=== PATIENT | male | born 1940 | race Caucasian/White ===

== ENCOUNTER 2020-03-09 09:27 | Outpatient (CLI) | payer MEDICARE, OTHER, SELFPAY ==
--- NOTE | 2020-03-09 09:45 | XRR_ITS ---
PROCEDURE INFORMATION: Exam: XR Abdomen, 1 View Exam date and time: 03/09/2020 9:47 AM Age: 79 years old Clinical indication: Condition or disease; Kidney or ureter condition; Calculus (stone) in kidney; Prior surgery; Surgery type: Hernia; Additional info: Kidney stone 1 year follow up TECHNIQUE: Imaging protocol: XR of the abdomen. Views: Frontal supine view of the abdomen. 1 View. COMPARISON: No relevant prior studies available. FINDINGS: Gastrointestinal tract: Normal. No bowel dilation. Organs: There is an 8 mm calcific density projecting over the expected location of the left kidney, compatible with a calculus. Bones/joints: There is a minimal lumbar levoscoliosis. XR/XR KUB [id number] IMPRESSION: 8 mm left renal calculus.
== END 2020-03-09 09:28 | disposition home or self-care (01) ==
PROVIDERS: Family Provider Nurse Practitioner Family; PCP Urology; Visit Provider Urology
DX: N20.0 Calculus of kidney (principal)
CPT/HCPCS: 74018; 81001

== ENCOUNTER 2020-08-26 08:07 | Outpatient (CLI) | payer MEDICARE, OTHER, SELFPAY ==
--- NOTE | 2020-08-26 | CT_ITS ---
WS: [id number] CT ABDOMEN CONTRAST TECHNIQUE: Contrast enhanced CT of the abdomen with coronal and sagittal reformatted images. CLINICAL INFORMATION: EPIGASTRIC PAIN COMPARISON: 09 02,019 DLP: 1163.[address] scans at [facility] use at least one of these dose optimization techniques: automat ed exposure control; mA and/or kV adjustment per patient size (includes targeted exams where dose is matched to clinical indication); or iterative reconstruction. FINDINGS: Mild diffuse fatty infiltration of the liver. Cirrhotic contour to the liver. Recommend correlation w ith liver function tests. Gallbladder appears normal. Mild prominence of the common bile duct.. Hazy groundglass infiltrates in the right lower lobe, lingula and left lower lobe. Tiny calcified granulom as in both lower lobes. Normal pancreatic enhancement. A few small calcifications in the pancreatic h ead unchanged. Normal GE junction. Normal spleen. Adrenal glands are normal. Normal renal parenchymal enhancement. N o hydronephrosis. Bilateral renal cortical atrophy. Bilateral renal cysts the largest in the left michael suring 2.1 CM. Nonobstructing left calyceal tip calculus measuring 6.5 mm. No periaortic or retroperi toneal lymphadenopathy. Abdominal aortic calcification. Partially visualized fat-containing umbilical hernia. CT/CT abdomen w con* [id number] IMPRESSION: 1. Diffuse fatty infiltration of the liver with cirrhotic contour.Correlation with liver function tests. 2. Mild prominence of the common bile duct. Gallbladder can be further evaluat ed with ultrasound. 3. No hydronephrosis in either kidney. Mild renal cortical atrophy. 4. Bilateral renal cysts largest in the left measuring 2.1 cm. 5. Normal caliber abdominal aorta. 6. Partially visualized fat-containing umbilical hernia. 7. Slight hazy groundglass infiltrates in the lung bases. Recommend correlatio n for pneumonia.
[2020-08-26] MEDS: iohexol 300 mg/mL 50 mL Btl PO (09:21)
[2020-08-26] MEDS: iohexol 300 mg/mL 100 mL Btl IV (09:29)
== END 2020-08-26 08:08 | disposition home or self-care (01) ==
LOC: RADWPI 08:16
PROVIDERS: PCP Nurse Practitioner Family; Visit Provider Nurse Practitioner Family
DX: R10.13 Epigastric pain (principal); R14.2 Eructation; R11.2 Nausea with vomiting, unspecified; R10.84 Generalized abdominal pain; K76.0 Fatty (change of) liver, not elsewhere classified; N26.1 Atrophy of kidney (terminal); Q61.02 Congenital multiple renal cysts; K42.9 Umbilical hernia without obstruction or gangrene; R91.8 Other nonspecific abnormal finding of lung field
CPT/HCPCS: 74160; Q9967

== ENCOUNTER 2020-10-19 08:19 | Outpatient (CLI) | payer MEDICARE, OTHER, SELFPAY ==
--- NOTE | 2020-10-19 08:00 | US_ITS ---
WS: [id number] RIGHT UPPER QUADRANT ULTRASOUND HISTORY: R10.9 - Unspecified abdominal pain COMPARISON: 08/26/2020 Liver: 15.5 cm in length. Poorly visualized liver due to body habitus and attenuation. Coarse echotex ture with irregular borders and margins. No mass identified. Gallbladder: Normally distended gallbladder with no stones or wall thickening. CBD: 0.3 cm Pancreas: Not visualized. Right kidney: 13.2 cm in length. Normal size and echogenicity. No hydronephrosis or mass. Aorta and IVC: Only a very small portion of the aorta is identified. No ascites. US/US gall bladder [id number] IMPRESSION: 1. Normal gallbladder. 2. No bile duct dilatation. 3. Cirrhotic liver.
== END 2020-10-19 08:20 | disposition home or self-care (01) ==
LOC: RAD 08:27
PROVIDERS: PCP Nurse Practitioner Family; Visit Provider Surgery
DX: K74.60 Unspecified cirrhosis of liver (principal); R10.9 Unspecified abdominal pain
CPT/HCPCS: 76705

== ENCOUNTER 2020-11-08 09:17 | Outpatient (CLI) | payer MEDICARE, OTHER, SELFPAY ==
--- NOTE | 2020-11-08 10:00 | NM_ITS ---
WS: [id number] NUCLEAR MEDICINE HIDA SCAN CLINICAL INFORMATION: R10.13 - Epigastric pain TECHNIQUE: Following intravenous administration of 8.1 mCi of technetium 99m mebrofenin, images of th e abdomen were obtained over the course of 60 minutes. Next, gallbladder ejection fraction was determ ined by obtaining preprandial and one-hour postprandial images of the gallbladder following oral destinee stion of Ensure. COMPARISON: Ultrasound to 10/19/20 FINDINGS: Hepatomegaly. Normal hepatic uptake at 5 minutes. Normal hepatic excretion. Gallbladder is visualized by 10 to 15 minutes. No evidence of acute cholecystitis. Normal common bile duct and small bowel act ivity. No evidence of choledocholithiasis. Gallbladder ejection fraction 63% within normal limits. No evidence of chronic cholecystitis. NM/NM hepatobiliary w phar* [id number] IMPRESSION: 1. No evidence of acute or chronic cholecystitis. 2. Gallbladder ejection fraction 63% within normal limits.
== END 2020-11-08 09:18 | disposition home or self-care (01) ==
PROVIDERS: PCP Nurse Practitioner Family; Visit Provider Surgery
DX: R10.13 Epigastric pain (principal)
CPT/HCPCS: 78227; A9537

== ENCOUNTER → 2021-01-26 10:24 | Outpatient (BNVA) | payer MEDICARE, OTHER, SELFPAY | PROVIDERS: PCP Nurse Practitioner Family; Referring Provider Surgery; Visit Provider Surgery | DX: R10.13 Epigastric pain (principal); Z20.822 Contact with and (suspected) exposure to COVID-19 | CPT/HCPCS: 87635 ==

== ENCOUNTER 2021-01-31 12:18 | Outpatient (CLI) | payer MEDICARE, OTHER, SELFPAY ==
--- NOTE | 2021-01-31 13:03 | PFTS_ITS ---
Date of Study:01/31/21 Date of Dictation: MECHANICS: Forced vital capacity (FVC) is reduced. Forced expiratory volume in one second (FEV1) is reduced. FEV1/FVC is reduced. FLOW VOLUME LOOP: Reduced flow at all lung volumes with scooping. LUNG VOLUMES: Total lung capacity (TLC) is normal. Residual volume (RV) is increased. DIFFUSING CAPACITY FOR CARBON MONOXIDE: Normal. INTERPRETATION: The postbronchodilator spirometry is consistent with moderate obstruction. The patient has a significant postbronchodilator response. Lung volumes are consistent with air trapping. Gas exchange (DLCO) is normal. MTDD
== END 2021-01-31 12:19 | disposition home or self-care (01) ==
LOC: RT 12:19
PROVIDERS: PCP Family Medicine; Visit Provider Internal Medicine Critical Care Medicine
DX: R06.02 Shortness of breath (principal)
CPT/HCPCS: 94060; 94726; 94729; J7611

== ENCOUNTER 2021-02-01 06:53 | Day surgery (SDC) | payer MEDICARE, OTHER, SELFPAY ==
[2021-01-30 13:30] VITALS: BMI 40.1
--- NOTE | 2021-02-01 07:13 | ECG_ITS ---
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 Measurements Intervals [place] Rate: 71 P: 12 MO: 188 QRS: -60 QRSD: 170 T: 30 QT: 422 QTc: 459 Interpretive Statements SINUS RHYTHM WITH OCCASIONAL VENTRICULAR PREMATURE COMPLEXES RIGHT BUNDLE BRANCH BLOCK [120+ ms QRS DURATION, UPRIGHT V1, 40+ ms S IN I/aVL/V4/V5/V6] LEFT ANTERIOR FASCICULAR BLOCK [QRS AXIS <= -45, QR IN I, RS IN II] MODERATE VOLTAGE CRITERIA FOR LVH, CONSIDER NORMAL VARIANT [MEETS CRITERIA IN ONE OF: R(aVL), S(V1), R(V5), R(V5/V6)+S(V1)] POSSIBLE SEPTAL MYOCARDIAL INFARCTION [30 ms Q WAVE IN V1/V2], PROBABLY OLD Compared to ECG 08/22/2018 08:28:50 Ventricular premature complex(es) now present Myocardial infarct finding now present ST (T wave) deviation no longer present Electronically Signed On 02-02-2021 23:59:24 CDT by John Basilio M.D. [id number]
[2021-02-01 07:15] VITALS: BP 167/103; PULSE 74; RESP 18; TEMP 36.1; O2SAT 95
--- NOTE | 2021-02-01 07:34 | ANES.PREANE2 ---
Pre-Anesthetic Assessment Pre-Anesthetic Assessment: Height/Weight: Height 1.78 m Weight 127.006 kg Temp Pulse Resp BP Pulse Ox 97 F L 74 18 167/103 95 02/01/21 07:15 02/01/21 07:15 02/01/21 07:15 02/01/21 07:15 02/01/21 07:15 Preop Diagnosis: Epigastric pain Proposed Procedure: Operation Date: 02/01/21 08:00 Proposed Procedures p EGD 88459 R10.3(Not Applicable) - Mark Schwartz MD Was Beta Vasu taken within 24 hours: N/A Was Clonidine taken within 24 hours: N/A Last intake: Intake Last Liquid Date 01/31/21 Last Liquid Time 20:00 Last Solid Date 01/31/21 Last Solid Time 20:00 Social: Social History: Tobacco (30 yrs quit) and No alcohol Exam: Pre-Anes Outpt Exam: alert, oriented x 3, clear to auscultation bilaterally and regular rate & rhythm Airway: Submandibular: WNL Cervical ROM: Other (limited ROM) MP: 3 (full perez) Dentition: False History/ROS: No significant history except as noted Pulmonary: Pulmonary: Asthma, COPD, LOWRY, Sleep apnea and SOB Comments: nebulizer treatment preop alb/ipr/ history of histoplasmosis, O2 at night 2L CV/HEM: CV/HEM: HTN : : Chronic renal Insufficiency Comments: PSA, history kidney stones Hepatic: Comments: fatty liver GI: GI: GERD and Hiatus hernia Metabolic: Metabolic: Morbid obesity Musc/skel: Musc/skel: OA/DJD and Weakness Comments: cane assisted Anesthetic Plan: ASA status: 3 Anesthesia: Anesthesia Evaluation and MAC Risk of > 500 ml blood loss (7ml/kg in children): No PFSH Anesthesia PFSH: Medical History (Updated 01/24/21 @ 19:00 by Leidy Gallardo MD) Abnormal PSA Anxiety Histoplasmosis History of tobacco use HTN (hypertension) Hydronephrosis, left Hyperlipidemia Hypokalemia Left renal stone Macular degeneration Osteoarthritis Urinary frequency Surgical History Hx of cataract removal with insertion of prosthetic lens Hx of inguinal hernia repair Hx of right knee surgery Hx of umbilical hernia repair Family History Father CAD (coronary artery disease) Mother Lung disease Social History Smoking and tobacco status: former smoker Quit status (tobacco): has quit using tobacco Year quit tobacco: 1990 Former quit date comment: Hx of 1.5 PPD x 40 Years Smoking risk assessment/counseling performed?: No Alcohol intake: former Year of sobriety/quit date alcohol: 1960 Counseling given: No Counseling given: No Adopted: No Caregiver/support person: No Lives independently: Yes Household members: none Marital status: / Current occupational status: retired and disabled 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 Pets and animals: Yes Pets & animals: cat(s) History of recent travel: No Current gender identity: Male Data Anesthesia Cardiac Studies: No Data to Display
[2021-02-01] MEDS: sodium chloride 0.9% 1,000 ML 30 ML IV (07:38)
--- NOTE | 2021-02-01 08:12 | W.PM.OPSFHP ---
Same Day Surgery H&P Indication for Procedure/HPI DATE OF PROCEDURE: February 01, 2021 CHIEF COMPLAINT/INDICATIONFOR SURGICAL PROCEDURE: Epigastric pain PREOP DIAGNOSIS: Epigastric pain PLANNED PROCEDRUE: Operation Date: 02/01/21 08:00 Proposed Procedures p EGD 06426 R10.3(Not Applicable) - Mark Schwartz MD Mr. Flynn comes today for follow-up status post HIDA scan that I requested that showed: FINDINGS: Hepatomegaly. Normal hepatic uptake at 5 minutes. Normal hepatic excretion. Gallbladder is visualized by 10 to 15 minutes. No evidence of acute cholecystitis. Normal common bile duct and small bowel activity. No evidence of choledocholithiasis. Gallbladder ejection fraction 63% within normal limits. No evidence of chronic cholecystitis. NM/NM hepatobiliary w phar* [id number] IMPRESSION: 1. No evidence of acute or chronic cholecystitis. 2. Gallbladder ejection fraction 63% within normal limits. After further analyzing the HIDA scan patient reports no discomfort or nausea or vomiting associated with the study. Patient continues to feel bloated denies any nausea or vomiting. Further history reveals that the patient is a mouth breather and likely he does swallow a lot of air that makes him feel bloated. Interim history 02/01/2021 Patient comes today for diagnostic EGD ROS All systems have been reviewed negative except as per the above or per problem list. Medications/Allergies* Home Medications Medication Instructions Recorded Confirmed Type cholecalciferol (vitamin D3) 50 50 mcg PO DAILY tab 02/19/20 02/01/21 History mcg (2,000 unit) tablet vit C 250 mg-vit E 90 mg-zinc 40 1 tab PO BID 02/19/20 01/30/21 History mg-copper 1 yx-cfychh-fococw capsule ipratropium-albuterol 3 ml INHALATION TID PRN 01/30/21 02/01/21 History Allergies/Adverse Reactions Allergy/AdvReac Type Severity Reaction Status Date / Time No Known Allergies Allergy Verified 02/01/21 08:14 Current Medications: Generic Name Dose Route Start Last Admin Trade Name Freq PRN Reason Stop Dose Admin Sodium Chloride 1,000 mls @ 30 mls/hr 02/01/21 07:15 02/01/21 07:38 Sodium Chloride 0.9% IV 30 mls/hr .Q24H SONG Administration Pertinent History/Comorbid Conditions* Medical History (Updated 01/24/21 @ 19:00 by Leidy Gallardo MD) Abnormal PSA Anxiety Histoplasmosis History of tobacco use HTN (hypertension) Hydronephrosis, left Hyperlipidemia Hypokalemia Left renal stone Macular degeneration Osteoarthritis Urinary frequency Surgical History (Updated 01/11/21 @ 10:49 by Jack Slater MD) Hx of cataract removal with insertion of prosthetic lens Hx of inguinal hernia repair Hx of right knee surgery Hx of umbilical hernia repair Family History (Updated 02/19/20 @ 14:04 by VINCE Cabrera) CAD (coronary artery disease) Father Lung disease Mother Social History Smoking and tobacco status: former smoker Quit status (tobacco): has quit using tobacco Year quit tobacco: 1990 Former quit date comment: Hx of 1.5 PPD x 40 Years Smoking risk assessment/counseling performed?: No Alcohol intake: former Year of sobriety/quit date alcohol: 1960 Counseling given: No Counseling given: No Adopted: No Caregiver/support person: No Lives independently: Yes Household members: none Marital status: / Current occupational status: retired and disabled 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 I discussed with the patient in detail the risk,benefits,alternatives and indications.The risk of aspiration, bleeding, soft tissue injury, perforation of the stomach/esophagus and other potential concomitant complications were explained to the patient in details,aslo the potential need for Thoracic and or Abdominal surgery to repair any complications.The patient understood this well and did agree to proceed. Rationale was carefully and clearly discussed with the patient.Appropriate informed consent have been reviewed and signed All questions have been answered and all concerns have been addressed to patient's satisfaction. Coding Level of Care Code Acute Bulb Inspector for Callie Meyers
[2021-02-01 08:23] VITALS: BP 132/77; PULSE 70; RESP 18; TEMP 36.6; O2SAT 93
--- NOTE | 2021-02-01 08:28 | SUR.PHASEII ---
0864 PATIENT TO ROOM AT THIS TIME. RR EVEN AND UNLABORED. BITE BLOCK IN PLACE. SPO2 93%
[2021-02-01 08:42] VITALS: BP 127/77; PULSE 68; RESP 16; TEMP 36.6; O2SAT 93
--- NOTE | 2021-02-01 13:29 | ANE.PACU2 ---
Inpatient post-anesthesia follow up: Airway intact: Yes Vital signs: Temperature 97.8 F Pulse Rate 68 Respiratory Rate 16 Blood Pressure 127/77 Pulse Oximetry 93 Oxygen Delivery Me thod Room Air Oxygen Flow Rate 5 Fraction of Inspir ed Oxygen Hydration adequate: Yes Nausea and vomiting: No Pain level: 1 Mental status: Baseline
[2021-02-02 06:16] LABS: H. Pylori / CLO Test Negative
== END 2021-02-01 08:50 | disposition home or self-care (01) ==
PROVIDERS: PCP Family Medicine; Visit Provider Surgery
PROC: 0DJ08ZZ Inspection of Upper Intestinal Tract, Via Natural or Artificial Opening Endoscopic (ICD-10-PCS; CPT 43235; principal; 2021-02-01 08:00)
DX: R10.13 Epigastric pain (principal); K29.70 Gastritis, unspecified, without bleeding; K29.80 Duodenitis without bleeding; F41.9 Anxiety disorder, unspecified; F17.210 Nicotine dependence, cigarettes, uncomplicated; I10 Essential (primary) hypertension; E78.5 Hyperlipidemia, unspecified; M19.90 Unspecified osteoarthritis, unspecified site; J44.9 Chronic obstructive pulmonary disease, unspecified; G47.30 Sleep apnea, unspecified; Z99.81 Dependence on supplemental oxygen; K21.00 Gastro-esophageal reflux disease with esophagitis, without bleeding
CPT/HCPCS: 43239; 87077; 93005; J2704; J7030

== ENCOUNTER → 2021-02-08 10:44 | Outpatient (BNVA) | payer MEDICARE, OTHER, SELFPAY | PROVIDERS: PCP Family Medicine; Visit Provider Internal Medicine Critical Care Medicine | DX: R06.02 Shortness of breath (principal); J45.909 Unspecified asthma, uncomplicated | CPT/HCPCS: 82785; 86003 ==

== ENCOUNTER 2021-02-10 06:55 | Outpatient (CLI) | payer MEDICARE, OTHER, SELFPAY ==
[2021-02-10 07:06] VITALS: BMI 40.8
--- NOTE | 2021-02-10 07:18 | ECG_ITS ---
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 Interpretive Statements NAME OF STUDY: LEXISCAN SESTAMIBI STRESS TEST INDICATION: [Shortness of Breath, ] Procedure: At the baseline, the blood pressure was 144/76 mmHg with a heart rate of 66 bpm. The electrocardiogram showed normal sinus rhythm, left axis deviation, interventricular conduction delay with normal ST and T's. The Lexiscan was infused over a period of 20 seconds. A total of 0.4 mg of Lexiscan was infused. The stress phase was continued for a total of 5 minutes. Heart rate was at the end of stress phase was 73 bpm and a blood pressure of 163/61 mmHg. The EKG at the peak infusion revealed since normal sinus rhythm with no significant ST-T wave changes. Sestamibi was injected 20 seconds after the Lexiscan infusion. Blood pressure at the end of recovery phase was 167/84 mmHg with a heart rate of 72 bpm. Conclusion: 1. Normal EKG response to Lexiscan infusion 2. No Lexiscan induced chest pain or cardiac arrhythmia. 3. Normal blood pressure and heart rate response. 4. Sestamibi/sestamibi perfusion scan pending; see separate report. Electronically Signed On 02-22-2021 17:09:56 CDT by Michael Ng M.D. [id number]
--- NOTE | 2021-02-10 07:19 | NMCV_ITS ---
NM sukhdev perf SPECT r/s* [id number] Fercho Flynn Age: 80 Gender: M : 1940 Exam Date: 02/10/2021 08:26 Ordering Phys: Jack Slater MD Technologist: ABRAHAM Blanco Exam Location: [facility] Indications: SHORTNESS OF BREATH STRESS TEST Please see separate stress test report in [facility] for full findings IMAGE PROTOCOL Rest/Stress 1 Lexiscan Day Radiopharmaceutical Dose (mCi) Administration Site Administered by Rest: Tc-99m 10.9 IV ABRAHAM Valdes Sestamibi Stress:Tc-99m 33.0 IV ABRAHAM Valdes Sestamibi Rest: 10-Feb-2021 60 Discovery 630 Stress: 10-Feb-2021 30 Discovery 630 0.4mg Lexiscan. Supine position only as patient was unable to lay prone. SPECT RESULTS Technical Quality: Good Raw Data Analysis: Normal Image Corrections: No attenuation or motion correction applied Summed Stress Score: 8 Summed Rest Score: 7 Summed Difference Score: 2 PERFUSION FINDINGS There is a moderate sized partially reversible perfusion defect in the apical lateral, apical inferior and mid inferior nicholas. 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 IMPRESSIONS 1. Abnormal myocardial perfusion imaging with moderate sized, partially reversible perfusion defect noted in apical lateral, apical inferior and mid inferior nicholas. This likely represents prior infarct with small area of donya- infarct ischemia 2. LV systolic function is normal Michael Ng MD (Electronically Signed) Final Date: 10 Feb 2021 10:44 S
--- NOTE | 2021-02-10 08:00 | USCV_ITS ---
Fercho Flynn Age: 80 Gender: M : 1940 Exam Date: 02/10/2021 07:20 Ordering Phys: Jack Slater MD Technologist: Karen Xavier Exam Location: [facility] [place] Indication: SOB BP: / HR: 65 Rhythm: Sinus Technical Quality: Adequate MEASUREMENTS (Male / Female) Normal Values 2D ECHO LV Diastolic Diameter PLAX 4.3 cm 4.2 - 5.9 / 3.9 - 5.3 cm LV Systolic Diameter PLAX 3.6 cm LV Chamber Size 2.9 cm IVS Diastolic Thickness 1.5 cm 0.6 - 1.0 / 0.6 - 0.9 cm IVS Systolic Thickness 2.1 cm LVPW Diastolic Thickness 1.3 cm 0.6 - 1.0 / 0.6 - 0.9 cm LVPW Systolic Thickness 1.7 cm RV Chamber Size 4.2 cm LVOT Diameter 2.1 cm LV Ejection Fraction 2D Teich 37.2 % LV Ejection Fraction MOD 2C 39.8 % LV Ejection Fraction 2C AL 42.8 % LA Diameter 4.4 cm LA Width 2.6 cm LA Height 4.7 cm RA Width 4.2 cm RA Height 3.2 cm Aorta at Sinotubular Diameter 3.4 cm M-MODE LV Diastolic Diameter MM 4.3 cm 4.2 - 5.9 / 3.9 - 5.3 cm LV Systolic Diameter MM 3.1 cm LV Ejection Fraction MM Teich 56.5 % IVS Diastolic Thickness MM 1.3 cm 0.6 - 1.0 / 0.6 - 0.9 cm IVS Systolic Thickness MM 1.4 cm LVPW Diastolic Thickness MM 1.3 cm 0.6 - 1.0 / 0.6 - 0.9 cm LVPW Systolic Thickness MM 1.4 cm Aortic Annulus Diameter 3.7 cm LA Ao Ratio MM 1.5 MV E Point Septal Separation 0.8 cm DOPPLER AV Peak Velocity 175.0 cm/s LVOT Peak Velocity 117.0 cm/s AV Area Cont Eq vti 2.4 cm squared AV Area Cont Eq pk 2.2 cm squared MV Area PHT 2.8 cm squared Mitral E to A Ratio 1.3 MV E' Velocity 41.5 cm/s Mitral E to MV E' Ratio 12.4 Mitral E to LV E' Lateral Ratio 11.9 Mitral E to LV E' Septal Ratio 13.3 TR Peak Velocity 148.5 cm/s TR Peak Gradient 8.8 mmHg TR Mean Velocity 122.9 cm/s TR Mean Gradient 6.2 mmHg TR Velocity Time Integral 35.8 cm TV Peak E Velocity 59.0 cm/s PV Peak Velocity 37.0 cm/s RV Acceleration Time 0.1 s RV Ejection Time 0.4 s RV AcT/ET 0.3 FINDINGS Left Ventricle Normal left ventricular size. LV systolic function is borderline low with EF of 45-50%. Mild global hypokinesis. Grade II/IV diastolic dysfunction Right Ventricle The right ventricle is normal in size and function. Right Atrium The right atrium is normal in size. Left Atrium The left atrium is normal in size. Mitral Valve Structurally normal mitral valve without significant stenosis or prolapse. There is no mitral regurgitation. Aortic Valve Grossly normal without significant sclerosis or stenosis. There is no aortic regurgitation. Tricuspid Valve Structurally normal tricuspid valve without significant stenosis or regurgitation. Insufficient TR jet to calculate RVSP Pulmonic Valve Not well visualized Pericardium Normal pericardium without effusion. Aorta Normal ascending aorta dimension. CONCLUSIONS LV systolic function is borderline reduced with EF of 45-50% Grade 2 diastolic dysfunction Limited visualization of valvular structures, but no significant abnormalities are noted No comparison studies are available Michael Ng MD (Electronically Signed) Final Date: 12 Feb 2021 17:01 S
[2021-02-10 09:12] VITALS: BP 167/84; PULSE 70
[2021-02-10] MEDS: regadenoson 0.4 Mg/5 ml Syringe IVP (09:12)
--- NOTE | 2021-02-10 10:00 | CT_ITS ---
WS: [id number] CT CHEST WITHOUT INTRAVENOUS CONTRAST HISTORY: R06.02 - Shortness of breath TECHNIQUE: Contiguous 5 mm axial imaging performed on the thorax. Coronal and sagittal reformats are submitted. All CT scans at [facility] use at least one of these dose optimization techniq ues: automated exposure control; mA and/or kV adjustment per patient size (includes targeted exams wh ere dose is matched to clinical indication); or iterative reconstruction. CONTRAST: None DLP: 968.78 mGy.cm COMPARISON: None available. Lungs and central airway: Mild pulmonary hyperexpansion. There are numerous 2 to 3 mm calcified nodul es throughout both lungs. No mass or pulmonary nodule. No pneumonia. Pleura: Normal. No pleural effusion. Heart and pericardium: Normal size heart with no pericardial effusion. Mediastinum and karin: A few benign calcified lymph nodes. No adenopathy. Vessels: Mild atherosclerosis with no aneurysm. Normal size pulmonary artery. Chest wall and lower neck: Atrophied or partially absent LEFT pectoralis muscle. Upper abdomen: Surface of the liver is irregular suggesting cirrhosis. No lesions identified on this unenhanced study. Bladder is negative. Mild nodularity of each adrenal gland but LEFT greater than RI GHT. Similar to the prior study of 08/26/2020. Osseous structures: Focal RIGHT curvature mid thoracic spine with advanced degenerative changes at th e disc. No bone destruction. CT/CT chest wo con [id number] IMPRESSION: 1. Prior granulomatous disease. 2. No pneumonia or pulmonary mass. 3. Mild emphysema. 4. Cirrhotic liver.
== END 2021-02-10 06:56 | disposition home or self-care (01) ==
PROVIDERS: PCP Family Medicine; Visit Provider Internal Medicine Critical Care Medicine
DX: R06.02 Shortness of breath (principal); R94.39 Abnormal result of other cardiovascular function study; I51.9 Heart disease, unspecified; J43.9 Emphysema, unspecified; K74.60 Unspecified cirrhosis of liver
CPT/HCPCS: 71250; 78452; 93017; 93306; A9500; J2785

== ENCOUNTER 2021-03-09 09:27 | Outpatient (CLI) | payer MEDICARE, OTHER, SELFPAY ==
--- NOTE | 2021-03-09 09:44 | XR_ITS ---
WS: [id number] KUB, AP view, 03/09/2021 Clinical Data: RENAL STONE Comparison: KUB, 03/09/2020. Findings: No abnormal intraabdominal masses are seen. There is no dilatated small bowel or evidence of obstruct ion. There is a 1.1 cm calcification overlying the left kidney. There are multiple calcifications probably in the lung bases. There are probable calcifications overlying the right kidney located lateral to t he L2 vertebral body. There are phleboliths in the true pelvis. XR/XR KUB [id number] Impression: 1. Probable left renal calculus. 2. Possible right renal calculi.
== END 2021-03-09 09:28 | disposition home or self-care (01) ==
LOC: RAD 09:31
PROVIDERS: PCP Family Medicine; Visit Provider Urology
DX: N20.0 Calculus of kidney (principal)
CPT/HCPCS: 74018; 81003

== ENCOUNTER → 2021-03-22 14:33 | Outpatient (BNVA) | payer MEDICARE, OTHER, SELFPAY | PROVIDERS: PCP Family Medicine; Visit Provider Internal Medicine Cardiovascular Disease | DX: I25.10 Atherosclerotic heart disease of native coronary artery without angina pectoris (principal); I50.42 Chronic combined systolic (congestive) and diastolic (congestive) heart failure; R06.02 Shortness of breath; I10 Essential (primary) hypertension | CPT/HCPCS: 80053; 80061; 83721; 83735; 83880; 85025 ==

== ENCOUNTER → 2021-04-05 11:35 | Outpatient (BNVA) | payer MEDICARE, OTHER, SELFPAY | PROVIDERS: PCP Family Medicine; Visit Provider Emergency Medicine | DX: R06.02 Shortness of breath (principal); R07.9 Chest pain, unspecified; R00.2 Palpitations | CPT/HCPCS: 71046 ==

== ENCOUNTER 2021-04-05 13:00 | Emergency (ER) | payer MEDICARE, OTHER, SELFPAY ==
[2021-04-05 13:13] VITALS: BP 124/71; PULSE 80; RESP 22; TEMP 37.1; O2SAT 93; BMI 38.7
--- NOTE | 2021-04-05 13:52 | ECG_ITS ---
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 Measurements Intervals [place] Rate: 75 P: 35 MO: 201 QRS: -67 QRSD: 162 T: 53 QT: 430 QTc: 480 Interpretive Statements SINUS RHYTHM RIGHT BUNDLE BRANCH BLOCK [120+ ms QRS DURATION, UPRIGHT V1, 40+ ms S IN I/aVL/V4/V5/V6] LEFT ANTERIOR FASCICULAR BLOCK [QRS AXIS <= -45, QR IN I, RS IN II] POSSIBLE SEPTAL MYOCARDIAL INFARCTION [30 ms Q WAVE IN V1/V2], PROBABLY OLD Compared to ECG 02/01/2021 07:51:25 Ventricular premature complex(es) no longer present Myocardial infarct finding still present Electronically Signed On 04-05-2021 17:34:16 CDT by Michael Ng M.D. [id number]
--- NOTE | 2021-04-05 14:47 | W.ED.GENADLT ---
HPI - General Adult General: Chief complaint: General Medical Stated complaint: SOB, Chest Pain Time Seen by Provider: 04/05/21 14:44 History of Present Illness: HPI narrative: 80-year-old male presents emergency room complaining of palpitations and burping. He is having irregular heartbeats and skipping beats for the last day. He is very concerned about this. Has not really had any chest pain. He has been more short of breath. He has noticed his blood pressures been elevated as well. No recent medication changes. Denies fever sweats or chills. These episodes are self-limited at times old male have just a few. While I was standing at the bedside patient experienced several there were noted to be PVCs with compensatory pauses on his bedside monitor. Onset (ago): hour(s) Radiation: non-radiation Relieving factors: none Exacerbating factors: none Associated symptoms: Reports confusion, dyspnea and short of breath; Deny chest pain, cough, diaphoresis, decreased appetite, fevers/chills, headache(s), malaise, nausea, rash, palpitations, seizures, syncope, vomiting or weakness Review of Systems Const: Denies: malaise or diaphoresis ENMT: Denies: throat pain, ear or mastoid pain, nasal discharge or nasal congestion Card: Denies: chest pain, palpitations or syncope Resp: Reports: dyspnea GI: Denies: nausea or vomiting : Denies: flank pain, dysuria, urinary frequency or urinary urgency Skin/Breast: Denies: rash Neuro: Reports: confusion; Denies: headache(s) [facility] ED PFSH: Medical History Abnormal nuclear stress test Abnormal PSA Anxiety CAD (coronary artery disease) Gastritis and duodenitis Histoplasmosis History of tobacco use HTN (hypertension) Hydronephrosis, left Hyperlipidemia Hypokalemia Left renal stone Macular degeneration Osteoarthritis Urinary frequency Surgical History History of esophagogastroduodenoscopy (EGD) 2020 Hx of cataract removal with insertion of prosthetic lens Hx of inguinal hernia repair Hx of right knee surgery Hx of umbilical hernia repair Family History Father , in his 80's CAD (coronary artery disease) Mother , at age 78 Lung disease Social History Smoking and tobacco status: former smoker Quit status (tobacco): has quit using tobacco Year quit tobacco: 1990 Former quit date comment: Hx of 1.5 PPD x 40 Years Smoking risk assessment/counseling performed?: No Alcohol intake: former Year of sobriety/quit date alcohol: 1960 Counseling given: No Counseling given: No Adopted: No Caregiver/support person: No Lives independently: Yes Household members: none Marital status: / Current occupational status: retired and disabled 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 Pets and animals: Yes Pets & animals: cat(s) History of recent travel: No Current gender identity: Male Physical Exam Const: COMMON NORMALS: no acute distress GENERAL APPEARANCE: cooperative and comfortable ORIENTATION/CONSCIOUSNESS: Yes awake, Yes oriented to person, Yes oriented to place and Yes oriented to time HENMT: COMMON NORMALS: normocephalic, atraumatic and hearing grossly normal bilaterally HEAD & SCALP: normocephalic and atraumatic Neck/C-Spine: COMMON NORMALS: no JVD Resp: COMMON NORMALS: normal respiratory effort, No retractions, No use of accessory muscles and clear to auscultation bilaterally AUSCULTATION: clear to auscultation bilaterally Cardio: COMMON NORMALS: no JVD, regular rate, regular rhythm and No murmurs present (Cardio) RATE: regular rate RHYTHM: regular rhythm GI: COMMON NORMALS: Soft to palpation and No hepatosplenomegaly present AUSCULTATION: Yes normoactive bowel sounds PALPATION: Yes Soft to palpation, No Tenderness to palpation present (GI), No Guarding due to palpation present (GI) and Yes No hepatosplenomegaly present Extremity: COMMON NORMALS: normal to inspection, capillary refill normal, no clubbing, cyanosis or edema, no calf tenderness and no pedal edema Neuro: SENSORIUM/ORIENTATION: Yes oriented to person, Yes oriented to place and Yes oriented to time Skin: COMMON NORMALS: no rashes or lesions noted GENERAL SKIN EXAM: no rashes or lesions noted Course Vital Signs: Vital signs: Vital Signs Temperature 98.7 F 04/05/21 13:13 Pulse Rate 73 04/05/21 19:06 Respiratory Rate 21 H 04/05/21 19:06 Blood Pressure 142/74 04/05/21 19:06 Pulse Oximetry 91 04/05/21 19:06 MDM - General Adult MDM Narrative: Medical decision making narrative: Patient had multiple episodes of PVCs while he was here summer which he was aware of others not. His sats did run a bit on the low side. Is frequently down around 90 to 91% a few times even below 90. Chest x-ray is unremarkable patient is on chronic O2 but only wears it at night recommend to him that he can continue to wear it but wear it 24/7 for now on. Continue his other medications reassurance given in regards to the PVCs have him follow-up with his doctor sometime within the next week he needs to be reevaluated on his oxygen. Suspect he will needed 24/7 on activities. Lab Data: Labs: Lab Results 04/05/21 04/05/21 04/05/21 Range/Units 15:05 15:05 15:05 WBC 7.1 (4.0-10.0) 10^3/ uL RBC 5.09 (4.1-5.3) 10^6/u L Hgb 15.5 (11.7-16.6) g/dL Hct 48.2 (42.0-52.0) % MCV 94.7 H (80-94) fL MCH 30.5 (28.0-34.0) pg MCHC 32.2 (30.0-36.0) g/dL RDW 13.2 (12.1-15.1) % Plt Count 216 (130-400) 10^3/c mm MPV 10.8 H (7.4-10.4) fL Neut % (Auto) 66.7 % Lymph % (Auto) 19.5 % [place] % (Auto) 9.2 % Eos % (Auto) 3.3 % Baso % (Auto) 1.0 % Neut # (Auto) 4.71 (1.8-7.7) 10^3/u L Lymph # (Auto) 1.4 (0.8-4.8) 10^3/u L [place] # (Auto) 0.7 (0.2-0.9) 10^3/u L Eos # (Auto) 0.2 (0.0-0.8) 10^3/u L Baso # (Auto) 0.1 (0.0-0.1) 10^3/u L Nucleated RBC % (a uto) 0 % Nucleated RBCs # 0.0 /100WBC Sodium 139 (136-145) mmol/L Potassium 4.6 (3.5-5.1) mmol/L Chloride 105 (98-107) mmol/L Carbon Dioxide 24 (22-29) mmol/L Anion Gap 14.6 (5-19) BUN 18 (8-23) mg/dL Creatinine 1.1 (0.7-1.2) mg/dL GFR Calculation Not Reportable Glucose 98 (65-115) mg/dL Calculated Osmolal ity 290 (285-295) mOsm/k g Calcium 9.1 (8.5-10.5) mg/dL Total Bilirubin 0.6 (0.15-1.2) mg/dL AST 43 H (0-40) U/L ALT 41 (0-41) U/L Alkaline Phosphata se 66 (40-130) IU/L Troponin T Baselin e 27 H (0-15) ng/L Troponin T 120 Min [place] (0-15) ng/L Delta Troponin T (0-10) ABS# Total Protein 6.3 L (6.6-8.7) g/dL Albumin 4.4 (3.5-5.2) g/dL Globulin 1.9 (1.3-4.6) g/dL TSH 1.03 (0.27-4.20) uIU/ mL 04/05/21 Range/Units 17:26 WBC (4.0-10.0) 10^3/ uL RBC (4.1-5.3) 10^6/u L Hgb (11.7-16.6) g/dL Hct (42.0-52.0) % MCV (80-94) fL MCH (28.0-34.0) pg MCHC (30.0-36.0) g/dL RDW (12.1-15.1) % Plt Count (130-400) 10^3/c mm MPV (7.4-10.4) fL Neut % (Auto) % Lymph % (Auto) % [place] % (Auto) % Eos % (Auto) % Baso % (Auto) % Neut # (Auto) (1.8-7.7) 10^3/u L Lymph # (Auto) (0.8-4.8) 10^3/u L [place] # (Auto) (0.2-0.9) 10^3/u L Eos # (Auto) (0.0-0.8) 10^3/u L Baso # (Auto) (0.0-0.1) 10^3/u L Nucleated RBC % (a uto) % Nucleated RBCs # /100WBC Sodium (136-145) mmol/L Potassium (3.5-5.1) mmol/L Chloride (98-107) mmol/L Carbon Dioxide (22-29) mmol/L Anion Gap (5-19) BUN (8-23) mg/dL Creatinine (0.7-1.2) mg/dL GFR Calculation Glucose (65-115) mg/dL Calculated Osmolal ity (285-295) mOsm/k g Calcium (8.5-10.5) mg/dL Total Bilirubin (0.15-1.2) mg/dL AST (0-40) U/L ALT (0-41) U/L Alkaline Phosphata se (40-130) IU/L Troponin T Baselin e (0-15) ng/L Troponin T 120 Min [place] 22.10 H (0-15) ng/L Delta Troponin T -4.90 L (0-10) ABS# Total Protein (6.6-8.7) g/dL Albumin (3.5-5.2) g/dL Globulin (1.3-4.6) g/dL TSH (0.27-4.20) uIU/ mL Discharge Plan Discharge Patient Disposition: Home Clinical Impression: Symptomatic PVCs Condition: Stable Prescriptions: No Action fluticasone propion-salmeterol [Advair Diskus] 250-50 mcg/dose blister with device 1 inh inhalation BID Qty: 60 RF: 3 bupropion HCl [Wellbutrin SR] 100 mg tablet sustained-release 12 hr 100 mg PO QAM 30 Days Qty: 30 RF: 0 PreserVision AREDS-2 805-665-67-1 wa-rtlx-ur-mg capsule 1 tab PO BID RF: 0 cholecalciferol (vitamin D3) 125 mcg (5,000 unit) capsule 125 mcg PO QAM RF: 0 One-A-Day Men's 50 Plus 400-20-370 mcg tablet 1 tab PO QAM RF: 0 ipratropium-albuterol 0.5 mg-3 mg(2.5 mg base)/3 mL solution for nebulization 3 ml inhalation QID RF: 0 potassium chloride 10 mEq capsule, extended release 10 meq PO QAM RF: 0 atorvastatin 10 mg tablet 10 mg PO BEDTIME RF: 0 meloxicam 15 mg tablet 15 mg PO QAM RF: 0 lisinopril 20 mg tablet 20 mg PO QAM RF: 0 Adult Aspirin Regimen 81 mg tablet,delayed release (DR/EC) 81 mg PO BEDTIME RF: 0 furosemide 20 mg tablet 20 mg PO QAM RF: 0 miscellaneous medical supply Kit See Rx Instructions .ROUTE .COMPLEX RF: 0 Discharge Orders: Discharge ED (Routine); Ordered 04/05/21 Ordered By: Matthew Ortiz Referrals: Leidy Gallardo MD [Primary Care Provider] - Discharge Diet: Usual diet Discharge Activity: Increase activity as tolerated Patient Instructions: Opioid Safety Activity Restrictions/Additional Instructions: Case management will call to set up a 48-hour Holter monitor continue all your previous medications with no changes. 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
[2021-04-05 14:53] VITALS: O2SAT 94
--- NOTE | 2021-04-05 14:56 | PC.NURSE ---
pt very anxious about IV placement and requested explanation of need for IV from nurse. nurse explained to pt the possibility of needing to give medications through intravenous route for his c/o chest pain and shortness of breath. pt verbalized understanding and agreed to have IV line placed.
[2021-04-05 15:05] VITALS: BP 137/104; PULSE 74; RESP 18; O2SAT 94
--- NOTE | 2021-04-05 15:15 | XR_ITS ---
WS: [id number] Portable AP upright chest, 04/05/2021, 1545 hours Clinical Data: dyspnea/cough Comparison: PA and lateral chest, 04/05/2021, 1158 hours Findings: No nodules, masses or effusions are seen. The heart is normal. The pulmonary vascularity is not increased. No pneumonia or pneumothorax is seen. There are small granulomas seen throughout the lungs. The aortic arch and descending aorta show mild calcification and tortuosity. There are monitor leads on the chest wall. XR/XR chest 1V portable [id number] Impression: Atherosclerosis and old granulomatous disease.
[2021-04-05 15:19] LABS: Basophils # 0.1 10^3/uL (0.0-0.1); Eosinophils # 0.2 10^3/uL (0.0-0.8); Eosinophils % 3.3 %; Hematocrit 48.2 % (42.0-52.0); Hemoglobin 15.5 g/dL (11.7-16.6); Lymphocytes # 1.4 10^3/uL (0.8-4.8); Lymphocytes % 19.5 %; Mean Corpuscular HGB Conc 32.2 g/dL (30.0-36.0); Mean Corpuscular Hemoglobin 30.5 pg (28.0-34.0); Mean Corpuscular Volume 94.7 fL (80-94); Mean Platelet Volume 10.8 fL (7.4-10.4); Monocytes # 0.7 10^3/uL (0.2-0.9); Monocytes % 9.2 %; Neutrophils # 4.71 10^3/uL (1.8-7.7); Neutrophils % 66.7 %; Nucleated Red Blood Cells % 0 %; Platelet Count 216 10^3/cmm (130-400); Red Blood Count 5.09 10^6/uL (4.1-5.3); Red Cell Distribution Width 13.2 % (12.1-15.1); White Blood Count 7.1 10^3/uL (4.0-10.0)
[2021-04-05 15:35] VITALS: BP 130/84; PULSE 75; RESP 19; O2SAT 92
[2021-04-05 16:07] LABS: Alanine Aminotransferase 41 U/L (0-41); Albumin Level 4.4 g/dL (3.5-5.2); Alkaline Phosphatase 66 IU/L (40-130); Anion Gap 14.6 (5-19); Aspartate Amino Transferase 43 U/L (0-40); Blood Urea Nitrogen 18 mg/dL (8-23); Calcium 9.1 mg/dL (8.5-10.5); Carbon Dioxide 24 mmol/L (22-29); Chloride 105 mmol/L (98-107); Globulin 1.9 g/dL (1.3-4.6); Glucose 98 mg/dL (65-115); Osmolality Calculated 290 mOsm/kg (285-295); Potassium 4.6 mmol/L (3.5-5.1); Sodium 139 mmol/L (136-145); Thyroid Stimulating Hormone 1.03 uIU/mL (0.27-4.20); Total Bilirubin 0.6 mg/dL (0.15-1.2); Total Protein 6.3 g/dL (6.6-8.7)
[2021-04-05 16:18] LABS: Troponin(5th) Baseline 27 ng/L (0-15)
[2021-04-05 17:33] VITALS: BP 119/69; PULSE 73; RESP 14; O2SAT 91
[2021-04-05 19:06] VITALS: BP 142/74; PULSE 73; RESP 21; O2SAT 91
--- NOTE | 2021-04-05 19:52 | ECG_ITS ---
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 Measurements Intervals [place] Rate: 73 P: 22 GA: 201 QRS: -64 QRSD: 170 T: 57 QT: 433 QTc: 478 Interpretive Statements SINUS RHYTHM RIGHT BUNDLE BRANCH BLOCK [120+ ms QRS DURATION, UPRIGHT V1, 40+ ms S IN I/aVL/V4/V5/V6] LEFT ANTERIOR FASCICULAR BLOCK [QRS AXIS <= -45, QR IN I, RS IN II] MINIMAL VOLTAGE CRITERIA FOR LVH, CONSIDER NORMAL VARIANT [MEETS CRITERIA IN ONE OF: R(aVL), S(V1), R(V5), R(V5/V6)+S(V1)] POSSIBLE SEPTAL MYOCARDIAL INFARCTION [30 ms Q WAVE IN V1/V2], PROBABLY OLD Compared to ECG 04/05/2021 15:00:19 No significant changes Electronically Signed On 04-05-2021 18:34:25 CDT by Michael Ng M.D. [id number]
== END 2021-04-05 19:06 | disposition home or self-care (01) ==
PROVIDERS: Physician Assistant; Emergency Provider Family Medicine; PCP Family Medicine
DX: I49.3 Ventricular premature depolarization (principal); I25.10 Atherosclerotic heart disease of native coronary artery without angina pectoris; I10 Essential (primary) hypertension; E78.5 Hyperlipidemia, unspecified; Z87.891 Personal history of nicotine dependence
CPT/HCPCS: 71045; 80053; 84443; 84484; 85025; 93005; 99283

== ENCOUNTER → 2021-06-26 13:52 | Outpatient (BNVA) | payer MEDICARE, OTHER, SELFPAY | PROVIDERS: PCP Family Medicine; Visit Provider Internal Medicine Cardiovascular Disease | DX: I50.42 Chronic combined systolic (congestive) and diastolic (congestive) heart failure (principal); R06.02 Shortness of breath; R94.39 Abnormal result of other cardiovascular function study; I10 Essential (primary) hypertension | CPT/HCPCS: 80048; 83735; 83880; 85025; 85610; 87635 ==

== ENCOUNTER → 2021-07-05 11:31 | Outpatient (BNVA) | payer MEDICARE, OTHER, SELFPAY | PROVIDERS: PCP Family Medicine; Visit Provider Internal Medicine Cardiovascular Disease | DX: Z01.812 Encounter for preprocedural laboratory examination (principal); Z20.822 Contact with and (suspected) exposure to COVID-19 | CPT/HCPCS: 87635 ==

== ENCOUNTER → 2021-07-06 11:48 | Outpatient (BNVA) | payer MEDICARE, OTHER, SELFPAY | PROVIDERS: PCP Family Medicine; Referring Provider Internal Medicine Cardiovascular Disease; Visit Provider Internal Medicine Cardiovascular Disease | DX: I11.0 Hypertensive heart disease with heart failure (principal); I25.10 Atherosclerotic heart disease of native coronary artery without angina pectoris; I50.42 Chronic combined systolic (congestive) and diastolic (congestive) heart failure | CPT/HCPCS: 80048; 83735; 83880 ==

== ENCOUNTER 2021-07-11 07:17 | Outpatient (CLI) | payer MEDICARE, OTHER, SELFPAY ==
[2021-07-11] VITALS (14 sets, daily range): BP systolic 95–153; BP diastolic 65–81; PULSE 73–87; RESP 16–23; TEMP 36.8; O2SAT 90–97; BMI 40.0
--- NOTE | 2021-07-11 07:30 | XACV_ITS ---
Exam Room: 1 Ht: 178 cm Wt: 126 kg BSA: 2.55 m2 Gender: Male : 1940 Any Known Allergies: No known allergies Exam Priority: Routine Procedure(s): Procedure Description: Diagnostic procedure Procedure Description: Coronary Angiography Lynette BAUTISTA; Diagnostic Cath Status: Elective Diagnostic Findings * Left Main has no disease. * Left Anterior Descending has no disease. * Circumflex has no disease. * Mid Right Coronary Artery: luminal irregularities 20% stenosis, NELIA: 3 flow. * Coronary angiography shows right dominance. Conclusions 1. There is luminal irregularities coronary artery disease with one vessel disease. Recommendations * Continue current medical management and risk factor modification. Pressures Phase:Rest AO : 104 / 66 ( 82 ) @ 7:38:00 AM Clinical Evaluation EBL: 5mL-10mL Procedural Details Procedure Consent Obtained. David Tidwell, CPT, RT scrubbing. Tanisha Acuña RN circulating. Identified patient by full name and date of as verbalized by the patient/guarantor. Does the consent match the physician's order: Yes. Accurate & Complete Informed Consent: Yes. Inpatient/Outpatient History & Physical on Chart: Yes. If H&P is completed, is and addenduem needed: N/A. Visualize and Verify Site with Patient/Guarantor: N/A. Relevant Radiology Images available: Yes. The risks, benefits, and alternatives of sedation and/or procedure were discussed by physician. The patient agrees to continue. Procedure started. [facility] Clinical Fraility Score: 4: Vulnerable. 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 Chest Pain Symptom Assessment: Atypical Angina. Cardiovascular Instability: No. Correct patient, site and procedure confirmed by cath team. PERRLA. Strong, equal hand turn down worker bilaterally. Lungs clear x 5 lobes. IV Site on Arrival: 20 gauge in the right anticubital. IV Fluids: 0.9% NaCl at KVO. 0 mL infused prior to slab stripper. Pre Procedural Pulses: bilateral radial was 3+. Pre Procedural Pulses: right dorsalis pedis was 1+. Pre Procedural Pulses: right posterior tibial was 3+. Pre Procedural Pulses: left dorsalis pedis was 3+. Pre Procedural Pulses: left posterior tibial was 2+. Oxygen started at 2liters/min via nasal canula. right groin was prepped with chloroprep then draped in the usual sterile fashion. right radial was prepped with chloroprep then draped in the usual sterile fashion. Physician notified. Physician arrived. Equipment: 6F - Radial. Cardiac Cath Pack. ACIST Manifold Kit Model BT 2000. Heparinized Saline (2 units/mL), 1000 mL bag. Patient's daughter in law in CPRU Room # 3. Dr. Ojeda will update when the procedure is complete. Physician scrubbed in. Immediate Pre-Procedure Time Out. Correct Patient: Yes; Correct Procedure: Yes; Correct Site: Yes; Correct Patient Position: Yes; Correct Supplies: Yes; Dried Flammable Prep: Yes; Blood Products Available: N/A. Lidocaine 1% infiltrated to the right radial. Arterial access obtained. A 5 tuvaluan Raj catheter in over the exchange wire. Baseline sample Acquired. HR: 85 BPM. Multiple views taken of left coronary artery. Catheter redirected to the RCA, unable to cannulate. Catheter removed over the exchange wire. A 5 tuvaluan TIG catheter in over the exchange wire. Multiple views taken of right coronary artery. Catheter removed over the exchange wire. Physician scrubbed out. Patient's family updated by Dr. Ojeda. TR band placed. Hemostasis obtained. Post Procedure: Pulses reassessed and unchanged. PERRLA. Strong, equal hand turn down worker bilaterally. No VTE prophylaxis required. Total IV fluids: 78 mL. Medication's Wasted: Lidocaine 1% = 16 mL. Medication's Wasted: Heparin = 1000 Units. Medication's Wasted: Nitro = 49.8 mg. A TR Band was successful obtaining hemostatsis at the Right Radial artery insertion site. 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 Complications: none. Estimated blood loss: 5mL-10mL. Procedure completed. Patient transferred by wheelchair to CPRU. Vital chart was stopped. Access Site Site: Right Radial artery Sheath Size: 6 Fr Hemostasis Method: TR Band Hemostasis Success: Successful Procedure Medications Start: 8:27 AM Stop: 8:27 AM Medication: Versed Amount: 1 mg Route: I.V. Start: 8:27 AM Stop: 8:27 AM Medication: Fentanyl Amount: 50 mcg Route: I.V. Start: 8:35 AM Stop: 8:35 AM Medication: Nitrogylcerin Amount: 200 mcg Route: I.A. Start: 8:38 AM Stop: 8:38 AM Medication: Heparin Amount: 5000 units Route: I.V. I, the attending physician, have reviewed and verified all procedure medications. Yes, all medications given per verbal order History/Risk Factors Hypertension: Yes Dyslipidemia: Yes Peripheral Arterial Disease (PAD): No Myocardial Infarction (RI): No Obesity: Yes Renal Disease: No Prior Interventions PCI: No CABG: No Valve Surgery: No Report Signatures Finalized by Wilber Ojeda MD on 07/25/2021 07:07 PM
[2021-07-11 07:56] LABS: Basophils # 0.1 10^3/uL (0.0-0.1); Basophils % 0.8 %; Eosinophils # 0.4 10^3/uL (0.0-0.8); Hematocrit 46.6 % (42.0-52.0); Lymphocytes # 1.5 10^3/uL (0.8-4.8); Lymphocytes % 15.6 %; Mean Corpuscular HGB Conc 32.2 g/dL (30.0-36.0); Mean Corpuscular Hemoglobin 30.7 pg (28.0-34.0); Mean Corpuscular Volume 95.3 fl (80-94); Mean Platelet Volume 10.1 fL (7.4-10.4); Monocytes # 0.9 10^3/uL (0.2-0.9); Monocytes % 9.1 %; Neutrophils # 6.51 10^3/uL (1.8-7.7); Neutrophils % 69.1 %; Nucleated Red Blood Cells % 0 %; Platelet Count 311 10^3/cmm (130-400); Red Blood Count 4.89 10^6/uL (4.1-5.3); White Blood Count 9.4 10^3/uL (4.0-10.0)
[2021-07-11] MEDS: diphenhydrAMINE 50 mg Capsule PO (08:05)
[2021-07-11 08:07] LABS: INR 1.02 (0.8-1.2)
--- NOTE | 2021-07-11 08:21 | W.PM.OPSUD ---
Surgery/Procedure H&P Update DATE OF PROCEDURE: July 11, 2021 DATE H&P PERFORMED: 06/29/21 H&P UPDATE INFORMATION: I have reviewed H&P completed within last 30 days, I have examined patient prior to procedure and No changes to prior documentation PREOP DIAGNOSIS: New onset of heart failure, abnormal stress test PLANNED PROCEDURE: Operation Date: 07/11/21 08:30 Proposed Procedures p Cardiac Catheterization(Left) - Wilber Ojeda MD PATIENT REASSESSED PRIOR TO SEDATION, WITH NO CHANGE NOTED: Yes PHYSICAL EXAM: alert, oriented x 3 and clear to auscultation bilaterally AIRWAY EVAL/ANESTHESIA PLAN: ASA II and Risks, benefits & alternatives of sedation and/or procedure discussed ADDITIONAL INFORMATION: Patient has been explained all risk benefit and alternative for the procedure. Patient has been explained risk for stroke contrast-induced nephropathy urgent emergent bypass surgery transfusion infection hematoma pseudoaneurysm vascular injury. He denies any history of bleeding. He is a candidate for DAPT. He would like to proceed with it.
--- NOTE | 2021-07-11 09:55 | PC.NURSE ---
recovery pt received from dental laboratory assistant post diagnostic [facility]. pt complains of no pain. right radial tr band in place with no hematoma noted. distal pulse palpable. pt hooked to monitor and will check vitals per protocol. pt denied breakfast tray.
== END 2021-07-11 12:03 | disposition home or self-care (01) ==
PROVIDERS: PCP Family Medicine; Visit Provider Internal Medicine Cardiovascular Disease
DX: I50.9 Heart failure, unspecified (principal); R94.39 Abnormal result of other cardiovascular function study; I25.110 Atherosclerotic heart disease of native coronary artery with unstable angina pectoris
CPT/HCPCS: 36415; 85025; 85610; 93454; C1769; C1887; C1894; J1644; J2250; J3010; J3490; J7030; Q0163; Q9967

== ENCOUNTER → 2021-07-25 13:48 | Outpatient (BNVA) | payer MEDICARE, OTHER, SELFPAY | PROVIDERS: PCP Family Medicine; Visit Provider Nurse Practitioner Family | DX: I50.42 Chronic combined systolic (congestive) and diastolic (congestive) heart failure (principal) | CPT/HCPCS: 80048 ==

== ENCOUNTER → 2021-10-30 11:22 | Outpatient (BNVA) | payer MEDICARE, OTHER, SELFPAY | PROVIDERS: PCP Family Medicine; Visit Provider Family Medicine | DX: M89.49 Other hypertrophic osteoarthropathy, multiple sites (principal); M19.011 Primary osteoarthritis, right shoulder; I50.42 Chronic combined systolic (congestive) and diastolic (congestive) heart failure; I10 Essential (primary) hypertension; E66.01 Morbid (severe) obesity due to excess calories; Z68.41 Body mass index [BMI] 40.0-44.9, adult; E87.6 Hypokalemia; Z68.39 Body mass index [BMI] 39.0-39.9, adult | CPT/HCPCS: 80048 ==

== ENCOUNTER → 2021-11-14 14:05 | Outpatient (BNVA) | payer MEDICARE, OTHER, SELFPAY | PROVIDERS: PCP Family Medicine; Referring Provider Family Medicine; Visit Provider Orthopaedic Surgery | DX: M19.011 Primary osteoarthritis, right shoulder (principal) | CPT/HCPCS: 73030 ==

== ENCOUNTER → 2021-12-19 09:33 | Day surgery (SDC) | payer MEDICARE, OTHER, SELFPAY | PROVIDERS: PCP Family Medicine; Visit Provider Orthopaedic Surgery | DX: Z01.818 Encounter for other preprocedural examination (principal) | CPT/HCPCS: 93005 ==

== ENCOUNTER 2021-12-25 14:31 | Observation (INO) | payer MEDICARE, OTHER, SELFPAY ==
--- NOTE | 2021-12-19 09:33 | ECG_ITS ---
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 Measurements Intervals [place] Rate: 72 P: 18 [place]: 211 QRS: -67 QRSD: 159 T: 30 QT: 426 QTc: 469 Interpretive Statements SINUS RHYTHM WITH FIRST DEGREE AV BLOCK RIGHT BUNDLE BRANCH BLOCK [120+ ms QRS DURATION, UPRIGHT V1, 40+ ms S IN I/aVL/V4/V5/V6] LEFT ANTERIOR FASCICULAR BLOCK [QRS AXIS <= -45, QR IN I, RS IN II] MINIMAL VOLTAGE CRITERIA FOR LVH, CONSIDER NORMAL VARIANT [MEETS CRITERIA IN ONE OF: R(aVL), S(V1), R(V5), R(V5/V6)+S(V1)] PROBABLE SEPTAL MYOCARDIAL INFARCTION , PROBABLY OLD [35 ms Q WAVE IN V1/V2] Compared to ECG 04/05/2021 17:00:00 First degree AV block now present Myocardial infarct finding still present Electronically Signed On 12-19-2021 22:58:48 CDT by John Basilio M.D. [id number]
[2021-12-19 09:46] VITALS: BMI 40.6
--- NOTE | 2021-12-19 10:09 | P.ANESASSM_ITS ---
Pre-Anesthetic Assessment Height/Weight: Height 1.78 m Weight 128.367 kg Preop Diagnosis: New onset of heart failure, abnormal stress test Operation Date: 12/25/21 07:00 Proposed Procedures p Total Reverse Shoulder Arthroplasty 66091/m19.011(Right) - Fermin Merida MD Familial anesthetic complications: None Was Beta Vasu taken within 24 hours: N/A Was Clonidine taken within 24 hours: N/A Social No alcohol and No tobacco Exam alert, oriented x 3, clear to auscultation bilaterally and regular rate & rhythm Airway Submandibular: within normal limits Cervical ROM: Other (Limited extension ) Mallampati: Class I Comments: Comments: Missing most teeth Pulmonary Asthma, Chronic Obstructive Pulmonary Disease, Sleep Apnea (Not on CPAP) and Shortness of Breath Hx of histoplasmois Nocturnal hypoxemia, 2 LPM NC at night From pulomnary note by Doctor Bryon 11/2021 His pulmonary function test in January 2021 revealed an FEV1 FVC ratio of 69% with FEV1 of 2.17 L which was 74% of predicted and forced vital capacity at 3.13 L which was 79% of predicted.? The patient had a 16% postbronchodilator response.? His total lung capacity was 99% and residual volume 573%.? His DLCO was 89%. CV/HEM Congestive Heart Failure and Hypertension EKG ? Interpretive Statements SINUS RHYTHM RIGHT BUNDLE BRANCH BLOCK [120+ ms QRS DURATION, UPRIGHT V1, 40+ ms S IN I/aVL/V4/V5/V6] LEFT ANTERIOR FASCICULAR BLOCK [QRS AXIS <= -45, QR IN I, RS IN II] MINIMAL VOLTAGE CRITERIA FOR LVH, CONSIDER NORMAL VARIANT [MEETS CRITERIA IN ONE OF: R(aVL), S(V1), R(V5), R(V5/V6)+S(V1)] POSSIBLE SEPTAL MYOCARDIAL INFARCTION [30 ms Q WAVE IN V1/V2], PROBABLY OLD Compared to ECG 04/05/2021 15:00:19 No significant changes Electronically Signed On 04-05-2021 18:34:25 CDT by Michael Ng M.D. [email or web address] 01/2021 Conclusion: 1. ? Normal EKG response to Lexiscan infusion 2.? No Lexiscan induced chest pain or cardiac arrhythmia. 3.? Normal blood pressure and heart rate response. 4.? Sestamibi/sestamibi perfusion scan pending; see separate report. Data From Dr. 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 There is luminal irregularities coronary artery disease with one vessel disease. Recommendations ? * Continue current medical management and risk factor modification. TTE 01/2021 CONCLUSIONS ?LV systolic function is borderline reduced with EF of 45-50% ?Grade 2 diastolic dysfunction ?Limited visualization of valvular structures, but no significant ?abnormalities are noted ?No comparison studies are available Kidney stones Hepatic None reported GI Dyspepsia Metabolic Morbid Obesity Musc/skel Osteoarthritis/DJD Right shoulder osteoarthritis Neuropsych Anxiety Anesthetic Plan ASA status: 3 (81 year old male with COPD, ALEXYS, morbid obesity, CHF, OA, and HTN>. ) Anesthesia: Anesthesia Evaluation, General and Regional (specify below) Other: We discussed risk and benefits of general anesthesia including PONV, sore throat (sometimes severe), corneal abrasion, positioning and peripheral nerve injuries, life threatening allergic reaction, post operative ICU admission requiring prolonged intubation, stroke, heart attack, , and rare incidences of recall. Patient consents to proceed with general anesthesia. We discussed risk and benefits of nerve block for post op pain control including management of pain and titration of pain medications as signs/symptoms of nerve block wearing off begin to appear and/or prior bed. We discussed risk of failed nerve block, vascular injury or other vital structure injury, abscess/infection, LAST, and nerve injury. Risk of > 500 ml blood loss (7ml/kg in children): No Medications/Allergies Home Medications Medication Instructions Recorded Confirmed Last Taken Type vit C 250 mg-vit E 90 mg-zinc 40 1 tab PO BID 02/19/20 12/19/21 07/10/21 18:00 History mg-copper 1 di-mlnkfh-jamofu capsule (PreserVision AREDS-2) cholecalciferol (vitamin D3) 125 125 mcg PO QAM 02/14/21 12/19/21 07/10/21 08:00 History mcg (5,000 unit) capsule rgewctatixcs-bmi-pgkak acid-vit 1 tab PO QAM 02/14/21 12/19/21 07/10/21 08:00 History K-lycop 400 mcg-20 mcg-370 mcg tablet (One-A-Day Men's 50 Plus) aspirin 81 mg tablet,delayed 81 mg PO BEDTIME 04/05/21 12/19/21 07/10/21 21:30 History release (Adult Aspirin Regimen) miscellaneous medical supply See Rx Instructions .ROUTE .COMPLEX 04/05/21 12/19/21 07/10/21 History atorvastatin 10 mg tablet 10 mg PO BEDTIME #90 tab 09/28/21 12/19/21 Unknown Rx furosemide 20 mg tablet 20 mg PO QAM PRN #30 tab 09/28/21 12/19/21 Unknown Rx potassium chloride 10 mEq 10 meq PO QAM PRN #30 cap 09/28/21 12/19/21 Unknown Rx capsule,extended release spironolactone 25 mg tablet 25 mg PO DAILY #30 tab 09/28/21 12/19/21 Unknown Rx fluticasone 250 mcg-salmeterol 50 1 inh INHALATION BID #60 ea 10/21/21 12/19/21 Unknown Rx mcg/dose blistr powdr for inhalation (Advair Diskus) lisinopril 20 mg tablet 20 mg PO QAM #90 tab 10/30/21 12/19/21 Unknown Rx meloxicam 15 mg tablet 15 mg PO QAM PRN #30 tab 10/30/21 12/19/21 Unknown Rx ipratropium 0.5 mg-albuterol 3 mg 3 ml INHALATION QID #360 ml 11/23/21 12/19/21 Unknown Rx (2.5 mg base)/3 mL nebulization soln Allergies Allergy/AdvReac Type Severity Reaction Status Date / Time No Known Allergies Allergy Verified 12/06/21 11:57 [facility] Anesthesia Medical History Abnormal nuclear stress test Abnormal PSA Anxiety Arthritis of left shoulder region CAD (coronary artery disease) Gastritis and duodenitis Histoplasmosis History of tobacco use HTN (hypertension) Hydronephrosis, left Hyperlipidemia Hypokalemia Left renal stone Macular degeneration Osteoarthritis Urinary frequency Surgical History History of esophagogastroduodenoscopy (EGD) 2020 Hx of cataract removal with insertion of prosthetic lens Hx of inguinal hernia repair Hx of right knee surgery Hx of umbilical hernia repair Family History Father , in his 80's CAD (coronary artery disease) Mother , at age 78 Lung disease Social History Smoking and tobacco status: former smoker Quit status (tobacco): has quit using tobacco Year quit tobacco: 1990 Former quit date comment: Hx of 1.5 PPD x 40 Years Smoking risk assessment/counseling performed?: No Alcohol intake: former Year of sobriety/quit date alcohol: 1960 Counseling given: No Counseling given: No Adopted: No Caregiver/support person: No Lives independently: Yes Household members: none Marital status: / Current occupational status: retired and disabled 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 Pets and animals: Yes Pets & animals: cat(s) History of recent travel: No Current gender identity: Male Data Anesthesia Cardiac Studies: Echocardiogram Ultrasound 02/10/21 Sestamibi Stress Test (Cardiology) 02/10/21
[2021-12-19 10:34] LABS: Basophils # 0.1 10^3/uL (0.0-0.1); Basophils % 0.9 %; Eosinophils # 0.2 10^3/uL (0.0-0.8); Eosinophils % 3.1 %; Hematocrit 46.2 % (42.0-52.0); Lymphocytes # 1.5 10^3/uL (0.8-4.8); Mean Corpuscular HGB Conc 32.5 g/dL (30.0-36.0); Mean Corpuscular Hemoglobin 30.4 pg (28.0-34.0); Mean Corpuscular Volume 93.7 fl (80-94); Mean Platelet Volume 11.3 fL (7.4-10.4); Monocytes # 0.7 10^3/uL (0.2-0.9); Monocytes % 9.7 %; Neutrophils # 4.52 10^3/uL (1.8-7.7); Neutrophils % 64.6 %; Nucleated Red Blood Cells % 0 %; Platelet Count 196 10^3/cmm (130-400); Red Blood Count 4.93 10^6/uL (4.1-5.3); Red Cell Distribution Width 13.2 % (12.1-15.1)
[2021-12-19 10:42] LABS: Blood Urea Nitrogen 19 mg/dL (8-23); Calcium 10.5 mg/dL (8.5-10.5); Carbon Dioxide 24 mmol/L (22-29); Chloride 104 mmol/L (98-107); Creatinine Clr Calc Pharmacy 72.0809; Glucose 110 mg/dL (65-115); Osmolality Calculated 287 mOsm/kg (285-295); Sodium 137 mmol/L (136-145)
[2021-12-25] VITALS (25 sets, daily range): BP systolic 112–171; BP diastolic 71–103; PULSE 73–99; RESP 12–20; TEMP 36.2–36.5; O2SAT 90–98; BMI 40.6
--- NOTE | 2021-12-25 07:38 | CT_ITS ---
WS: [id number] NONCONTRAST CT RIGHT SHOULDER TECHNIQUE: Noncontrast CT RIGHT shoulder with coronal and sagittal reformatted images. CLINICAL INFORMATION: PRIMARY OSTEOARTHRITIS R SHOULDER DLP: 1104.[address] scans at [facility] use at least one of these dose optimization techniques: automated e xposure control; mA and/or kV adjustment per patient size (includes targeted exams where dose is matc hed to clinical indication); or iterative reconstruction. FINDINGS: Advanced osteoarthritis RIGHT glenohumeral joint. Complete loss of joint space with vueb-yb-kudh art iculation and subchondral cystic change. Hypertrophic changes along the humeral neck and inferior gle noid. Near complete loss of the subacromial space. Subchondral cystic changes involving the AC joint with mild downsloping of the acromion. No acute fractures. Calcified granulomatous disease partially visualized in the RIGHT lung. Calcified granulomas. CT/CT shoulder RT wo con* [id number] IMPRESSION: 1. Advanced degenerative arthritis RIGHT glenohumeral joint with xcqq-pz-cwqo articulation. Subchondral cystic change with hypertrophic changes along the inf erior glenoid and medial humeral neck. 2. Near complete loss of the subacromial space with moderate degenerative arth ritis AC joint. 3. Partially visualized calcified granulomatous disease RIGHT lung
--- NOTE | 2021-12-25 08:00 | CT_ITS ---
WS: [id number] NONCONTRAST CT RIGHT SHOULDER TECHNIQUE: Noncontrast CT RIGHT shoulder with coronal and sagittal reformatted images. CLINICAL INFORMATION: PRIMARY OSTEOARTHRITIS R SHOULDER DLP: 1104.[address] scans at [facility] use at least one of these dose optim ization techniques: automated exposure control; mA and/or kV adjustment per patient size (includes ta rgeted exams where dose is matched to clinical indication); or iterative reconstruction. FINDINGS: Advanced osteoarthritis RIGHT glenohumeral joint. Complete loss of joint space with hdoz-rp-oixk george culation and subchondral cystic change. Hypertrophic changes along the humeral neck and inferior citlali oid. Near complete loss of the subacromial space. Subchondral cystic changes involving the AC joint w ith mild downsloping of the acromion. No acute fractures. Calcified granulomatous disease partially v isualized in the RIGHT lung. Calcified granulomas. CT/CT shoulder RT wo con* [id number] IMPRESSION: 1. Advanced degenerative arthritis RIGHT glenohumeral joint with twly-oh-jdse a rticulation. Subchondral cystic change with hypertrophic changes along the infe rior glenoid and medial humeral neck. 2. Near complete loss of the subacromial space with moderate degenerative arthr itis AC joint. 3. Partially visualized calcified granulomatous disease RIGHT lung
[2021-12-25] MEDS: gabapentin 300 mg Capsule PO (09:22)
[2021-12-25] MEDS: acetaminophen 500 mg Tablet 1000 MG PO ×2 (09:23→17:03)
[2021-12-25] MEDS: CELEcoxib 200 mg Capsule 400 MG PO (09:23)
[2021-12-25] MEDS: oxyCODONE 20 mg ER (12 HR) Tablet PO (09:23)
[2021-12-25] MEDS: sodium chloride 0.9% 1,000 ML 30 ML IV (09:24)
[2021-12-25] MEDS: ipratropium 0.5 mg/2.5 mL Neb INHALATION (09:38)
[2021-12-25] MEDS: HYDROmorphone 1 mg/mL INJ 1 mL 0.5 MG IVP (09:56)
--- NOTE | 2021-12-25 10:29 | P.ANESUD_ITS ---
Pre-Anesthetic Update Pre-Anesthetic Assessment: Date of Surgery/Procedure: 12/25/21 Preop Agnes gnosis: Osteoarthritis right shoulder Proposed Procedure: Operation Date: 12/25/21 10:55 Proposed Procedures p Total Reverse Shoulder Arthroplasty 08466/m19.011(Right) - Fermin Merida MD Any changes to Pre-Anesthetic Assessment?: No Last Intake: Intake Last Liquid Date 12/24/21 Last Liquid Time 20:00 Last Solid Date 12/24/21 Last Solid Time 17:00 Vitals: Pulse Rate 75 12/25/21 09:46 Pulse Rhythm 12/25/21 08:43 Pulse Strength 3+ Normal 12/25/21 08:43 Respiratory Rate 16 12/25/21 09:46 Respiratory Effort 12/25/21 09:23 Respiratory Depth Normal 12/25/21 09:23 Respiratory Patter n 12/25/21 09:23 Pulse Oximetry 95 12/25/21 09:46 Oxygen Delivery Me thod 12/25/21 09:46 Exam: Pre-Anes Outpt Exam: alert, oriented x 3 and regular rate & rhythm Additional Exam Findings (including area of procedure): decreased BS bilateral, hx of COPD Cardiac Studies: Echocardiogram Ultrasound 02/10/21 Sestamibi Stress Test (Cardiology) 02/10/21 Anesthesia Procedures Nerve Block: Nerve Block 1: Main Anesthesia: general anesthesia Time Out Performed: Yes Consent: requested by attending/covering physician, from patient, risks and benefits reviewed and patient agrees to proceed Nerve block location: interscalene (right) Anesthesia monitors applied: pulse oximetry Nerve block position: semi sitting Anesthetic Used: ropivicaine 0.5% Amount of anesthesia used (mL): 20 Ultrasound used to: recognize landmarks and visualize and ID brachial plexus Nerve Stimulator Used?: No Interscalene/Femoral BLK: 2 stimuplex 22 g needle used for position and inplane approach Injection: neg aspiration of heme Patient Tolerated Procedure: well Complications: none
[2021-12-25] MEDS: diphenhydrAMINE 50 mg/mL SDV 1mL 12.5 MG IVP (11:02)
--- NOTE | 2021-12-25 11:06 | P.HP_ITS ---
Same Day Surgery H&P Indication for Procedure/HPI DATE OF PROCEDURE: December 25, 2021 CHIEF COMPLAINT/INDICATIONFOR SURGICAL PROCEDURE: Right shoulder pain and loss of function PREOP DIAGNOSIS: Rotator cuff tear arthropathy right shoulder PLANNED PROCEDURE: Operation Date: 12/25/21 10:55 Proposed Procedures p Total Reverse Shoulder Arthroplasty 51782/m19.011(Right) - Fermin Merida MD 81-year-old male with years of right shoulder pain and progressive loss of function. Here today for right reverse total shoulder arthroplasty Medications/Allergies* Home Medications Medication Instructions Recorded Confirmed Type vit C 250 mg-vit E 90 mg-zinc 40 1 tab PO BID 02/19/20 12/19/21 History mg-copper 1 kv-dyqqed-sssjcp capsule (PreserVision AREDS-2) cholecalciferol (vitamin D3) 125 125 mcg PO QAM 02/14/21 12/19/21 History mcg (5,000 unit) capsule nmwrvdgvstqm-kyj-wjbeq acid-vit 1 tab PO QAM 02/14/21 12/19/21 History K-lycop 400 mcg-20 mcg-370 mcg tablet (One-A-Day Men's 50 Plus) aspirin 81 mg tablet,delayed 81 mg PO BEDTIME 04/05/21 12/19/21 History release (Adult Aspirin Regimen) miscellaneous medical supply See Rx Instructions .ROUTE .COMPLEX 04/05/21 12/19/21 History Allergies/Adverse Reactions Allergy/AdvReac Type Severity Reaction Status Date / Time No Known Allergies Allergy Verified 12/06/21 11:57 Current Medications: Generic Name Dose Route Start Last Admin Trade Name Freq PRN Reason Stop Dose Admin Sodium Chloride 1,000 mls @ 30 mls/hr 12/25/21 08:30 12/25/21 09:24 Sodium Chloride 0.9% IV 12/26/21 08:29 30 mls/hr .Q24H SONG Administration Pertinent History/Comorbid Conditions* Medical History (Updated 12/06/21 @ 12:18 by Jack Slater MD) Abnormal nuclear stress test Abnormal PSA Anxiety Arthritis of left shoulder region CAD (coronary artery disease) Gastritis and duodenitis Histoplasmosis History of tobacco use HTN (hypertension) Hydronephrosis, left Hyperlipidemia Hypokalemia Left renal stone Macular degeneration Osteoarthritis Urinary frequency Surgical History (Updated 02/28/21 @ 16:57 by Leidy Gallardo MD) History of esophagogastroduodenoscopy (EGD) 2020 Hx of cataract removal with insertion of prosthetic lens Hx of inguinal hernia repair Hx of right knee surgery Hx of umbilical hernia repair Family History (Updated 02/19/20 @ 14:04 by VINCE Cabrera) Father, in his 80's Mother, at age 78 CAD (coronary artery disease) Father Lung disease Mother Social History Smoking and tobacco status: former smoker Quit status (tobacco): has quit using tobacco Year quit tobacco: 1990 Former quit date comment: Hx of 1.5 PPD x 40 Years Smoking risk assessment/counseling performed?: No Alcohol intake: former Year of sobriety/quit date alcohol: 1960 Counseling given: No Counseling given: No Adopted: No Caregiver/support person: No Lives independently: Yes Household members: none Marital status: / Current occupational status: retired and disabled 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 Pets and animals: Yes Pets & animals: cat(s) History of recent travel: No Current gender identity: Male Pertinent Exam Findings alert, oriented x 3, clear to auscultation bilaterally and operative site marked Recommendations Surgery/Procedure today Coding Level of Care Code Acute Linoleum Tile Layer for Callie Fwnabeel
[2021-12-25] MEDS: tranexamic acid 1,000 mg/10mL SDV 1000 MG IV (11:20)
[2021-12-25] MEDS: tranexamic acid 1,000 mg/10mL SDV 1000 MG IRRIGATION (12:43)
--- NOTE | 2021-12-25 14:22 | P.PCN_ITS ---
Documented by User: Tejas Duenas CRNA 12/25/21 14:23 PACU note Narrative: VSS, Good respiratory effort, report to [facility]
--- NOTE | 2021-12-25 14:22 | XRR_ITS ---
PROCEDURE INFORMATION: Exam: XR Right Shoulder Exam date and time: 12/25/2021 2:36 PM Age: 81 years old Clinical indication: Device placement; Other: Right reverse total shoulder; Prior surgery; Surgery date: Post-operative (0-2 days) TECHNIQUE: Imaging protocol: XR Right shoulder. Views: 2 or more views. COMPARISON: CT shoulder RT wo con* [id number] 12/25/2021 10:23 AM FINDINGS: Bones/joints: Reverse right total shoulder arthroplasty in expected alignment. Osseous structures are intact. Soft tissues: Soft tissue swelling of the right shoulder consistent with recent surgical procedure. XR/XR shoulder RT min 2V* [id number] IMPRESSION: Sequela of recently placed reverse right total shoulder arthroplasty in expected alignment.
--- NOTE | 2021-12-25 14:24 | PM.OP ---
Operative Report Date of procedure: December 25, 2021 Pre-op diagnosis: Preop Diagnosis Rotator cuff tear arthropathy right shoulder Post-op diagnosis: same Post-op findings: The patient had a complete tear of the supraspinatus and infraspinatus musculature. He had severe wear of the glenohumeral joint with posterior and superior wear. Procedure done: Right reverse total shoulder Implants: 1) Tornier Aequalis Ascend Flex 5B mm stem 2) Flex Shoulder System reversed tray +o mm 3) Flex Shoulder System 42 mm mm +6 mm reversed insert 4) Aequalis PerFordm 29mm +3mm lateralized baseplate 5) Aequalis PerForm Reversed 42 mm standard glenosphere 6) Glenoid screws: central 6.5 x 35 mm, superior 22 mm inferior 34 mm, anterior 26 mm, posterior 18 mm Pathology: none sent Surgeon: Fermin Merida Anesthesia: General and Nerve Block (Interscalene block) Estimated blood loss (mL): 300 Complications: None Findings: The patient had complete tear with superior and posterior glenoid wear. Condition: stable Disposition: PACU Procedure: An intrascalene blocks provided the holding area. The patient was taken to the operating room and given a general anesthesia. They were given 2 g of Ancef. A Sellers stand was covered and use to support support the arm A timeout was performed. A 10 cm long incision was made over the deltopectoral groove and dissection carried out with a scalpel blade to the deltopectoral interval. The cephalic vein was identified and retracted laterally. Digital dissection was accomplished to free lesions beneath the deltoid and beneath the coracobrachialis musculature. An Cheng medium tissue protector was used to retract the pectoralis major and the deltoid. The biceps tendon was identified scarred down and immobile in the bicipital groove and was released from the superior glenoid. The subscapularis and a capsule was then peeled off of the lesser tuberosity and fixed with 3 tape sutures in a locking Krak?w fashion from superior to inferior. Capsular release was accomplished across the inferior capsule from the glenoid. The shoulder was then dislocated and the femoral head cut was made at the level of the greater tuberosity and 30 degrees of retroversion. Utilizing electrocautery the glenoid was exposed circumferentially. Sequential release of the capsule inferiorly and posteriorly allowed greater mobilization of the humerus. The centering guide was used to place the central guidepin at a 10 degrees inferior slope in accordance with our preoperative plan to bring the glenoid down to neutral tilt. Glenoid ream down to sclerotic bone removing more inferior bone. A 29 mm +3mm Tornier Aequalis PerFORM REversed glenoid baseplate was then secured in place with a central 0.5 x 35 mm mm screw, a superior locking 22 mm screw, an inferior locking 34 mm screw, an anterior 26 mm screw and a posterior 18 mm screw. A standard 42 mm Aequalis perFORM ReversedGlenosphere was then placed. Attention was then focused on the humerus. Sequential and broaching of the canal was accomplished up to a size 5B stem with satisfactory stability.. A trial reduction with the 42 mm +6mm reversed insert provided adequate stability. The final humeral stem, reverse tray and insert were press-fit into place and the shoulder reduced with a stable reduction. 4 drill holes were then made in the bicipital groove. Sutures through the subscapularis were then passed through tunnels at the most superior suture through the most proximal hole. The second pair of sutures through the second hole, the third pair of sutures to the third hole in the fourth suture through the fourth hole. They were tied over a small Deshawn 4-hole mini plate. The wound was irrigated with a solution of 100 cc of saline with 1 g of tranexamic acid and 80 mg of gentamicin. The deltopectoral interval was closed with 0 Vicryl. The subcutaneous tissues were closed with 2-0 Stratafix. The skin was closed with a running 4-0 Stratafix. Sterile dressings were applied. The patient was placed in a [], extubated and taken to recovery room in stable condition.
--- NOTE | 2021-12-25 15:56 | ANE.PACU2 ---
Inpatient post-anesthesia follow up: Airway intact: Yes Vital signs: Temperature 97.2 F Pulse Rate 87 Respiratory Rate 14 Blood Pressure 116/74 Pulse Oximetry 92 Oxygen Delivery Me thod Nasal Cannula Oxygen Flow Rate 3 Fraction of Inspir ed Oxygen Hydration adequate: Yes Nausea and vomiting: No Pain level: 1 Mental status: Baseline
[2021-12-25] MEDS: sodium chloride 0.9% 1,000 ML 100 ML IV (16:03)
[2021-12-25] MEDS: ondansetron 2 mg/ML SDV 2 mL 4 MG IVP (16:03)
[2021-12-25] MEDS: ipratropium-albuterol 3 mL Neb INHALATION ×2 (16:50→19:40)
[2021-12-25] MEDS: atorvastatin 40 mg Tablet 10 MG PO (21:12)
[2021-12-25] MEDS: aspirin 81 mg EC Tablet PO (21:13)
[2021-12-25] MEDS: CELEcoxib 200 mg Capsule PO (21:13)
[2021-12-26] MEDS: acetaminophen 500 mg Tablet 1000 MG PO ×2 (01:06→09:30)
[2021-12-26] MEDS: sodium chloride 0.9% 1,000 ML 100 ML IV (02:32)
[2021-12-26 03:29] LABS: Hemoglobin 13.1 g/dL (11.7-16.6)
[2021-12-26 04:51] VITALS: BP 120/69; PULSE 77; RESP 20; TEMP 36.4; O2SAT 95
--- NOTE | 2021-12-26 05:47 | PC.NURSE ---
SHIFT SUMMARY Has rested well tonight. Says he usually does not sleep much. Dressing to R shoulder C&D. Bruising and redness to upper arm/shoulder. Ice pack in place. Arm in sling. Has not c/o any pain. Says right shoulder and upper arm still has some numbness. Radial pulse strong. Is able to move hand, fingers and arm. Good cap refill and sensation to lower arm, hands and fingers. IV infusing at 100ml/hr rate. Taking po fluids well. Voiding well per bathroom. O2 in place at 2l per NC
[2021-12-26] MEDS: cholecalciferol (vitamin D3) 5,000 unit Tablet 5000 UNIT PO (06:01)
[2021-12-26] MEDS: lisinopril 20 mg Tablet PO (06:01)
[2021-12-26 07:37] VITALS: PULSE 78; RESP 17; O2SAT 94
[2021-12-26] MEDS: ipratropium-albuterol 3 mL Neb INHALATION (07:37)
[2021-12-26 07:46] VITALS: PULSE 78
[2021-12-26 08:00] VITALS: BP 116/66; PULSE 81; RESP 18; TEMP 36.5; O2SAT 94
--- NOTE | 2021-12-26 08:00 | P.DS_ITS ---
Discharge Providers Date of Admission: 12/25/21 14:31 Date of Discharge: December 26, 2021 Attending Provider at Admission: Fermin Escalante MD Attending Provider at Discharge: Fermin Escalante MD Primary Care Provider: Leidy Gallardo MD Diagnoses at Discharge Discharge Diagnosis (1) Status post replacement of right shoulder joint: Status: Acute (2) Osteoarthritis of right shoulder: Status: Resolved Reason for Visit Reason for Visit: osteoarthritis of right shoulder Hospital Course Hospital Course The patient tolerated surgery well. They remained hemodynamically stable. They was begun on aspirin and Kytril compression dressings for DVT prophylaxis. The patient was mobilized with therapy beginning the day after surgery and was instructed in pendulum exercises and active range of motion of the elbow wrist and hand by Occupational Therapy. As the pain was adequately controlled and they were fully mobile they were discharged home. Discharge Data Studies Completed and Pending Completed Studies During Hospitalization Category Date Time Status CT shoulder RT wo con* [id number] Routine Cat Scan 12/25/21 07:[address] shoulder RT wo con* [id number] Routine Cat Scan 12/25/21 08:00 Completed XR shoulder RT min 2V* [id number] Routine Exams 12/25/21 14:22 Completed Radiology Impressions Shoulder CT 12/25/21 08:00 IMPRESSION: 1. Advanced degenerative arthritis RIGHT glenohumeral joint with [id number] articulation. Subchondral cystic change with hypertrophic changes along the inferior glenoid and medial humeral neck. 2. Near complete loss of the subacromial space with moderate degenerative arthritis AC joint. 3. Partially visualized calcified granulomatous disease RIGHT lung Shoulder X-Ray 12/25/21 14:22 IMPRESSION: Sequela of recently placed reverse right total shoulder arthroplasty in expected alignment. Laboratory Results WBC 7.0 10^3/uL (4.0-10.0) 12/19/21 10:00 RBC 4.93 10^6/uL (4.1-5.3) 12/19/21 10:00 Hgb 13.1 g/dL (11.7-16.6) 12/26/21 03:04 Hct 46.2 % (42.0-52.0) 12/19/21 10:00 MCV 93.7 fl (80-94) 12/19/21 10:00 MCH 30.4 pg (28.0-34.0) 12/19/21 10:00 MCHC 32.5 g/dL (30.0-36.0) 12/19/21 10:00 RDW 13.2 % (12.1-15.1) 12/19/21 10:00 Plt Count 196 10^3/cmm (130-400) 12/19/21 10:00 MPV 11.3 fL (7.4-10.4) H 12/19/21 10:00 Neut % (Auto) 64.6 % 12/19/21 10:00 Lymph % (Auto) 21.0 % 12/19/21 10:00 [place] % (Auto) 9.7 % 12/19/21 10:00 Eos % (Auto) 3.1 % 12/19/21 10:00 Baso % (Auto) 0.9 % 12/19/21 10:00 Neut # (Auto) 4.52 10^3/uL (1.8-7.7) 12/19/21 10:00 Lymph # (Auto) 1.5 10^3/uL (0.8-4.8) 12/19/21 10:00 [place] # (Auto) 0.7 10^3/uL (0.2-0.9) 12/19/21 10:00 Eos # (Auto) 0.2 10^3/uL (0.0-0.8) 12/19/21 10:00 Baso # (Auto) 0.1 10^3/uL (0.0-0.1) 12/19/21 10:00 Nucleated RBC % (auto) 0 % 12/19/21 10:00 Nucleated RBCs # 0.0 /100WBC 12/19/21 10:00 Sodium 137 mmol/L (136-145) 12/19/21 10:00 Potassium 5.0 mmol/L (3.5-5.1) 12/19/21 10:00 Chloride 104 mmol/L (98-107) 12/19/21 10:00 Carbon Dioxide 24 mmol/L (22-29) 12/19/21 10:00 Anion Gap 14.0 (5-19) 12/19/21 10:00 BUN 19 mg/dL (8-23) 12/19/21 10:00 Creatinine 1.1 mg/dL (0.7-1.2) 12/19/21 10:00 GFR Calculation Not Reportable 12/19/21 10:00 Glucose 110 mg/dL (65-115) 12/19/21 10:00 Calculated Osmolality 287 mOsm/kg (285-295) 12/19/21 10:00 Calcium 10.5 mg/dL (8.5-10.5) 12/19/21 10:00 Vitals Last Vital Signs Temp 97.5 F L 12/26/21 04:51 Pulse 78 12/26/21 07:46 Resp 17 12/26/21 07:37 BP 120/69 12/26/21 04:51 Pulse Ox 94 12/26/21 07:37 Discharge Plan Discharge Condition: Stable Prescriptions: New oxycodone 5 mg Tablet 5 mg PO Q4H PRN (Reason: Moderate Pain) 7 Days Qty: 40 0RF acetaminophen 500 mg Tablet 1,000 mg PO Q8H 14 Days Qty: 84 0RF celecoxib 200 mg Capsule 200 mg PO Q12H 14 Days Qty: 28 0RF Continued atorvastatin 10 mg tablet 10 mg PO BEDTIME Qty: 90 3RF Rx Instructions: FOR CHOLESTEROL furosemide 20 mg tablet 20 mg PO QAM PRN (Reason: edema) Qty: 30 2RF Rx Instructions: FOR EXCESS FLUID potassium chloride 10 mEq capsule, extended release 10 meq PO QAM PRN (Reason: with Lasix) Qty: 30 2RF Rx Instructions: Take with Furosemide as needed spironolactone 25 mg tablet 25 mg PO DAILY Qty: 30 3RF lisinopril 20 mg tablet 20 mg PO QAM Qty: 90 2RF Rx Instructions: FOR BLOOD PRESSURE fluticasone propion-salmeterol [Advair Diskus] 250-50 mcg/dose blister with device 1 inh inhalation BID Qty: 60 3RF PreserVision AREDS-2 438-229-42-1 gm-vucb-dx-mg capsule 1 tab PO BID 0RF Rx Instructions: administer with meals ipratropium-albuterol 0.5 mg-3 mg(2.5 mg base)/3 mL solution for nebulization 3 ml inhalation QID Qty: 360 3RF Rx Instructions: 340B cholecalciferol (vitamin D3) 125 mcg (5,000 unit) capsule 125 mcg PO QAM 0RF One-A-Day Men's 50 Plus 400-20-370 mcg tablet 1 tab PO QAM 0RF aspirin [Adult Aspirin Regimen] 81 mg tablet,delayed release (DR/EC) 81 mg PO BEDTIME 0RF miscellaneous medical supply Kit See Rx Instructions .ROUTE .COMPLEX 0RF Rx Instructions: oxygen 2L at HS Discontinued meloxicam 15 mg tablet 15 mg PO QAM PRN (Reason: pain) Qty: 30 2RF Rx Instructions: WITH FOOD Discharge Orders: Discharge Order (Routine); Ordered 12/26/21 Ordered By: Fermin Escalante Referrals: Fermin Escalante MD [Physician] - (4 weeks) Discharge Diet: Advance as tolerated Discharge Activity: Limit activity as instructed Activity Restrictions/Additional Instructions: Okay to shower. No soaking incision in tub Apply FirstIce up to 20 min/hr for pain and swelling Take Celebrex twice a day for the next 15 days for pain , discontinue other anti-inflammatories Take Tylenol 500mg (up to 2 tabs) 3 times a day for mild pain take oxycodone for breakthrough pain. Exercises per Occupational Therapy IF HAVE ANY PROBLEMS OR QUESTIONS CALL [facility] [employer] [facility] MEMBER AT AND ASK TO HAVE DR. ESCALANTE PAGED. Discharge Attestations Time Spent in Discharge Care*: other Quality Metrics Clinical Quality Measures [ No reported AMI, CVA or VTE this stay] Coding Level of Care Code Acute [facility] [place] note Diagnoses Status post replacement of right shoulder joint Z96.611 Osteoarthritis of right shoulder M19.011
[2021-12-26] MEDS: spironolactone 25 mg Tablet PO (09:29)
[2021-12-26] MEDS: CELEcoxib 200 mg Capsule PO (09:30)
[2021-12-26 11:13] VITALS: BP 116/66; PULSE 81; RESP 18; TEMP 36.5; O2SAT 94
== END 2021-12-26 11:14 | disposition home or self-care (01) ==
LOC: MEDSURG 14:33
PROVIDERS: Anesthesiology; Admitting Provider Orthopaedic Surgery; PCP Family Medicine; Visit Provider Orthopaedic Surgery
PROC: (CPT 23472; principal; 2021-12-25 10:35)
DX: M75.101 Unspecified rotator cuff tear or rupture of right shoulder, not specified as traumatic (principal); M19.011 Primary osteoarthritis, right shoulder; Z79.82 Long term (current) use of aspirin; F41.9 Anxiety disorder, unspecified; I25.10 Atherosclerotic heart disease of native coronary artery without angina pectoris; M19.90 Unspecified osteoarthritis, unspecified site; Z87.891 Personal history of nicotine dependence; I50.9 Heart failure, unspecified; I11.0 Hypertensive heart disease with heart failure; J44.9 Chronic obstructive pulmonary disease, unspecified; G47.30 Sleep apnea, unspecified; I45.10 Unspecified right bundle-branch block
CPT/HCPCS: 23472; 64415; 73030; 73200; 76942; 80048; 85018; 85025; 94640; 97116; 97161; 97165; C1713; C1776; G0378; J0330; J0690; J1100; J1170; J1200; J1580; J2405; J2704; J2795; J3010; J3490; J7030; J7611; J7644

== ENCOUNTER 2022-01-02 06:00 | Outpatient (RCR) | payer MEDICARE, OTHER, SELFPAY | END 2022-01-13 23:59 | disposition home or self-care (01) | LOC: MOT 06:00 | PROVIDERS: PCP Family Medicine; Referring Provider Orthopaedic Surgery; Visit Provider Orthopaedic Surgery | DX: Z96.611 Presence of right artificial shoulder joint (principal); Z51.89 Encounter for other specified aftercare; Z98.890 Other specified postprocedural states | CPT/HCPCS: 97110; 97140; 97166 ==

== ENCOUNTER 2022-01-14 06:00 | Outpatient (RCR) | payer MEDICARE, OTHER, SELFPAY | END 2022-02-13 23:59 | disposition home or self-care (01) | LOC: MOT 06:00 | PROVIDERS: PCP Family Medicine; Referring Provider Orthopaedic Surgery; Visit Provider Orthopaedic Surgery | DX: Z96.611 Presence of right artificial shoulder joint (principal) | CPT/HCPCS: 97110; 97140 ==

== ENCOUNTER → 2022-01-24 07:43 | Outpatient (BNVA) | payer MEDICARE, OTHER, SELFPAY | PROVIDERS: PCP Family Medicine; Visit Provider Orthopaedic Surgery | DX: Z96.611 Presence of right artificial shoulder joint (principal); Z87.891 Personal history of nicotine dependence | CPT/HCPCS: 73030 ==

== ENCOUNTER 2022-02-14 06:00 | Outpatient (RCR) | payer MEDICARE, OTHER, SELFPAY | END 2022-03-15 23:59 | disposition home or self-care (01) | LOC: MOT 06:00 | PROVIDERS: PCP Family Medicine; Referring Provider Orthopaedic Surgery; Visit Provider Orthopaedic Surgery | DX: Z47.89 Encounter for other orthopedic aftercare (principal); Z96.611 Presence of right artificial shoulder joint | CPT/HCPCS: 97110; 97140 ==

== ENCOUNTER → 2022-03-05 10:27 | Outpatient (BNVA) | payer MEDICARE, OTHER, SELFPAY | PROVIDERS: PCP Family Medicine; Visit Provider Emergency Medicine | DX: U07.1 COVID-19 (principal); I50.9 Heart failure, unspecified; I25.10 Atherosclerotic heart disease of native coronary artery without angina pectoris | CPT/HCPCS: 71046; 80048; 83880; 85025; 87635 ==

== ENCOUNTER → 2022-04-17 13:30 | Outpatient (BNVA) | payer MEDICARE, OTHER, SELFPAY | PROVIDERS: PCP Family Medicine; Visit Provider Internal Medicine Cardiovascular Disease | DX: I11.0 Hypertensive heart disease with heart failure (principal); I50.42 Chronic combined systolic (congestive) and diastolic (congestive) heart failure | CPT/HCPCS: 99214 ==

== ENCOUNTER → 2022-04-24 13:53 | Outpatient (BNVA) | payer MEDICARE, OTHER, SELFPAY | PROVIDERS: PCP Family Medicine; Visit Provider Family Medicine | DX: J43.1 Panlobular emphysema (principal); I50.42 Chronic combined systolic (congestive) and diastolic (congestive) heart failure; J45.30 Mild persistent asthma, uncomplicated; I10 Essential (primary) hypertension; M89.49 Other hypertrophic osteoarthropathy, multiple sites; E87.6 Hypokalemia; E78.5 Hyperlipidemia, unspecified; R23.3 Spontaneous ecchymoses; I25.10 Atherosclerotic heart disease of native coronary artery without angina pectoris; M21.621 Bunionette of right foot; M21.622 Bunionette of left foot; K76.0 Fatty (change of) liver, not elsewhere classified; R23.8 Other skin changes | CPT/HCPCS: 80053; 80061; 85025 ==

== ENCOUNTER → 2022-04-30 13:30 | Outpatient (BNVA) | payer MEDICARE, OTHER, SELFPAY | PROVIDERS: PCP Family Medicine; Visit Provider Podiatrist Foot & Ankle Surgery | DX: L85.1 Acquired keratosis [keratoderma] palmaris et plantaris (principal); L85.3 Xerosis cutis; R60.9 Edema, unspecified; M21.622 Bunionette of left foot; M21.621 Bunionette of right foot | CPT/HCPCS: 99203 ==

== ENCOUNTER → 2022-04-30 13:43 | Outpatient (BNVA) | payer MEDICARE, OTHER, SELFPAY | PROVIDERS: PCP Family Medicine; Visit Provider Podiatrist Foot & Ankle Surgery | DX: M19.071 Primary osteoarthritis, right ankle and foot (principal); M21.621 Bunionette of right foot; M21.622 Bunionette of left foot | CPT/HCPCS: 73630 ==

== ENCOUNTER → 2022-06-13 11:39 | Outpatient (BNVA) | payer MEDICARE, OTHER, SELFPAY | PROVIDERS: PCP Family Medicine; Visit Provider Internal Medicine Critical Care Medicine | DX: R06.02 Shortness of breath (principal); J45.30 Mild persistent asthma, uncomplicated; G47.34 Idiopathic sleep related nonobstructive alveolar hypoventilation; M19.011 Primary osteoarthritis, right shoulder; Z98.890 Other specified postprocedural states | CPT/HCPCS: 99213; 99214 ==

== ENCOUNTER → 2022-07-24 14:14 | Outpatient (BNVA) | payer MEDICARE, OTHER, SELFPAY | PROVIDERS: PCP Family Medicine; Visit Provider Family Medicine | DX: M17.11 Unilateral primary osteoarthritis, right knee (principal); L57.0 Actinic keratosis | CPT/HCPCS: 73562 ==

== ENCOUNTER → 2022-10-23 13:36 | Outpatient (BNVA) | payer MEDICARE, OTHER, SELFPAY | PROVIDERS: PCP Family Medicine; Visit Provider Family Medicine | DX: J43.1 Panlobular emphysema (principal); I50.42 Chronic combined systolic (congestive) and diastolic (congestive) heart failure; M89.49 Other hypertrophic osteoarthropathy, multiple sites; H93.13 Tinnitus, bilateral; H91.93 Unspecified hearing loss, bilateral; I25.10 Atherosclerotic heart disease of native coronary artery without angina pectoris; I10 Essential (primary) hypertension | CPT/HCPCS: 71046; 80053; 80061; 83880; 85025 ==

== ENCOUNTER → 2022-12-13 12:42 | Outpatient (BNVA) | payer MEDICARE, OTHER, SELFPAY | PROVIDERS: PCP Family Medicine; Visit Provider Internal Medicine Pulmonary Disease | DX: R06.02 Shortness of breath (principal) | CPT/HCPCS: 36415; 82785; 86003; 99214 ==

== ENCOUNTER → 2023-06-17 12:40 | Outpatient (BNVA) | payer MEDICARE, OTHER, SELFPAY | PROVIDERS: PCP Family Medicine; Visit Provider Internal Medicine Pulmonary Disease | DX: J43.1 Panlobular emphysema (principal); R06.02 Shortness of breath; J45.30 Mild persistent asthma, uncomplicated; G47.34 Idiopathic sleep related nonobstructive alveolar hypoventilation; I50.20 Unspecified systolic (congestive) heart failure; I50.30 Unspecified diastolic (congestive) heart failure; Z87.891 Personal history of nicotine dependence | CPT/HCPCS: 99214 ==

== ENCOUNTER → 2023-07-31 11:21 | Outpatient (BNVA) | payer MEDICARE, OTHER, SELFPAY | PROVIDERS: PCP Family Medicine; Visit Provider Family Medicine | DX: M89.49 Other hypertrophic osteoarthropathy, multiple sites (principal); I10 Essential (primary) hypertension; J45.30 Mild persistent asthma, uncomplicated; G47.34 Idiopathic sleep related nonobstructive alveolar hypoventilation; I25.10 Atherosclerotic heart disease of native coronary artery without angina pectoris; I50.42 Chronic combined systolic (congestive) and diastolic (congestive) heart failure; Z91.09 Other allergy status, other than to drugs and biological substances; Z68.39 Body mass index [BMI] 39.0-39.9, adult; Z28.21 Immunization not carried out because of patient refusal | CPT/HCPCS: 80048; 80061 ==

== ENCOUNTER → 2023-10-23 09:03 | Outpatient (BNVA) | payer MEDICARE, OTHER, SELFPAY | PROVIDERS: PCP Family Medicine; Visit Provider Nurse Practitioner Family | DX: I11.0 Hypertensive heart disease with heart failure (principal); I50.42 Chronic combined systolic (congestive) and diastolic (congestive) heart failure; I25.10 Atherosclerotic heart disease of native coronary artery without angina pectoris; Z87.891 Personal history of nicotine dependence | CPT/HCPCS: 99214 ==

== ENCOUNTER → 2023-11-27 11:17 | Outpatient (BNVA) | payer MEDICARE, OTHER, SELFPAY | PROVIDERS: PCP Family Medicine; Referring Provider Family Medicine; Visit Provider Nurse Practitioner | DX: R00.1 Bradycardia, unspecified (principal); I25.10 Atherosclerotic heart disease of native coronary artery without angina pectoris; Z09 Encounter for follow-up examination after completed treatment for conditions other than malignant neoplasm; Z95.0 Presence of cardiac pacemaker | CPT/HCPCS: 93005 ==

== ENCOUNTER 2023-11-27 13:07 | Inpatient (IN) | payer MEDICARE, OTHER, SELFPAY ==
[2023-11-27] VITALS (34 sets, daily range): BP systolic 107–218; BP diastolic 43–107; PULSE 32–64; RESP 12–22; TEMP 36.6–36.8; O2SAT 92–100; BMI 38.2
--- NOTE | 2023-11-27 13:21 | XRR_ITS ---
PROCEDURE INFORMATION: Exam: XR Chest Exam date and time: 11/27/2023 1:51 PM Age: 83 years old Clinical indication: Cough and dyspnea; Additional info: Dyspnea/cough TECHNIQUE: Imaging protocol: Radiologic exam of the chest. Views: 1 view. COMPARISON: CR XR chest 2V* [id number] 10/23/2022 1:44 PM FINDINGS: Lungs: Atelectatic changes have developed along the right hemidiaphragm. Pleural spaces: Unremarkable. No pleural effusion. No pneumothorax. Heart/Mediastinum: Unremarkable. No cardiomegaly. Bones/joints: Right shoulder replacement. XR/XR chest 1V portable [id number] IMPRESSION: Right lower lobe atelectasis.
[2023-11-27] MEDS: aspirin 81 mg Chew Tablet 324 MG PO (13:33)
--- NOTE | 2023-11-27 13:34 | ECG_ITS ---
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 Measurements Intervals [place] Rate: 39 P: -6 AL: 253 QRS: 95 QRSD: 146 T: -55 QT: 555 QTc: 450 Interpretive Statements SINUS BRADYCARDIA WITH FIRST DEGREE AV BLOCK BORDERLINE RIGHT AXIS DEVIATION [QRS AXIS > 90] INTRAVENTRICULAR CONDUCTION DELAY [130+ ms QRS DURATION] LATERAL MYOCARDIAL INFARCTION , PROBABLY RECENT [40+ ms Q WAVE AND/OR ST/T ABNORMALITY IN I/aVL/V5/V6] POSSIBLE INFERIOR MYOCARDIAL INFARCTION , OF INDETERMINATE AGE [30 ms Q WAVE IN II/aVF] PROLONGED QT INTERVAL Compared to ECG 12/19/2021 10:16:55 Intraventricular conduction delay now present Prolonged QT interval now present Left anterior fascicular block no longer present Myocardial infarct finding still present Electronically Signed On 11-27-2023 16:13:52 CDT by Michael Ng M.D. [email or web address]
[2023-11-27] MEDS: heparin 5,000 unit/mL INJ 1 mL 4000 UNIT IVP (13:35)
[2023-11-27] MEDS: clopidogrel 300 mg Tablet 600 MG PO (13:37)
--- NOTE | 2023-11-27 13:38 | W.ED.SOB ---
HPI - SOB/Dyspnea General: Chief Complaint: Shortness of Breath/Dyspnea Stated Complaint: weakness, sob Time Seen by Provider: 11/27/23 13:20 Source: patient Mode of arrival: ambulatory History of Present Illness: HPI Narrative: 84-year-old male presents emergency room complaining of shortness of breath low heart rate and low blood pressure that began yesterday had some intermittent episodes of chest pressure he is not having any chest pressure or discomfort now. No diaphoresis associated with the episodes. He has a history of COPD and CHF and noncritical coronary artery disease noted in 1 vessel with 20% stenosis on a angiogram done in June 2021 echo a few months prior to that showed an EF of 40 to 50% with grade 2 diastolic dysfunction. He has not recently changed any medications he is not on any negative inotropes. MD elicited complaint: shortness of breath Pertinent past history: COPD and congestive heart failure Onset (ago): day(s) (1) Exacerbating factors: nothing Relieving factors: nothing Known history of: COPD and congestive heart failure Associated symptoms: Reports chest pain (Intermittent none at presentation); Deny abdominal pain, chest congestion, cough, diaphoresis, dizziness, extremity pain, fever(s), hemoptysis, lightheadedness, myalgias, nausea, orthopnea, palpitations, paresthesias, polydipsia, polyuria, rash, sense of impending doom, syncope, vomiting or other Treatment prior to arrival: none Related Data: Home oxygen amount: none Review of Systems Const: Denies: fever(s), chills or diaphoresis Card: Reports: chest pain (Intermittent none at presentation) and other (Low heart rate and blood pressure measured at home); Denies: palpitations, lightheadedness, syncope or orthopnea Resp: Denies: dyspnea, hemoptysis or chest congestion GI: Denies: abdominal pain, nausea or vomiting : Denies: dysuria, urinary frequency or urinary urgency Musc: Denies: neck pain, back pain or extremity pain Skin/Breast: Denies: rash Neuro: Denies: dizziness Endo: Denies: polyuria or polydipsia FOR[facility]LY [facility] ED PFSH: Medical History COVID Arthritis of left shoulder region Abnormal nuclear stress test CAD (coronary artery disease) Gastritis and duodenitis History of tobacco use Hypokalemia Anxiety HTN (hypertension) Histoplasmosis Macular degeneration Hyperlipidemia Left renal stone Urinary frequency Abnormal PSA Hydronephrosis, left Surgical History History of esophagogastroduodenoscopy (EGD) 2020 Hx of umbilical hernia repair Hx of inguinal hernia repair Hx of right knee surgery Patella injury Hx of cataract removal with insertion of prosthetic lens Family History Father , in his 80's CAD (coronary artery disease) Mother , at age 78 Lung disease Social History Smoking and tobacco/nicotine status: former use of tobacco/nicotine Quit status (tobacco/nicotine): has quit using Year quit tobacco: 1990 Former quit date comment: Hx of 1.5 PPD x 40 Years Alcohol intake: former Year of sobriety/quit date alcohol: 1960 Substance/Drug Use: never Adopted: No Caregiver/support person: No Lives independently: Yes Household members: none Marital status: / Current occupational status: retired and disabled 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 Pets and animals: Yes Pets & animals: cat(s) Do you think of yourself as: Straight/Heterosexual Current gender identity: Male Physical Exam Const: GENERAL APPEARANCE: cooperative and comfortable ORIENTATION/CONSCIOUSNESS: Yes awake, Yes oriented to person, Yes oriented to place and Yes oriented to time HENMT: COMMON NORMALS: normocephalic, atraumatic and hearing grossly normal bilaterally HEAD & SCALP: normocephalic and atraumatic Resp: COMMON NORMALS: normal respiratory effort, No retractions, No use of accessory muscles and clear to auscultation bilaterally AUSCULTATION: clear to auscultation bilaterally Cardio: COMMON NORMALS: regular rhythm and No murmurs present (Cardio) RATE: bradycardic RHYTHM: regular rhythm GI: COMMON NORMALS: Soft to palpation and No hepatosplenomegaly present AUSCULTATION: Yes normoactive bowel sounds PALPATION: Yes Soft to palpation, No Tenderness to palpation present (GI), No Guarding due to palpation present (GI) and Yes No hepatosplenomegaly present Extremity: COMMON NORMALS: normal to inspection, capillary refill normal, no clubbing, cyanosis or edema, no calf tenderness and no pedal edema Neuro: SENSORIUM/ORIENTATION: Yes oriented to person, Yes oriented to place and Yes oriented to time Skin: COMMON NORMALS: no rashes or lesions noted GENERAL SKIN EXAM: no rashes or lesions noted Course Vital Signs: Vital signs: Vital Signs Temperature 97.9 F 11/27/23 13:21 Pulse Rate 45 L 11/27/23 14:35 Respiratory Rate 19 H 11/27/23 14:35 Blood Pressure 142/86 11/27/23 14:35 Pulse Oximetry 98 11/27/23 14:35 Oxygen Delivery Me thod Room Air 11/27/23 13:21 MDM - SOB/Dyspnea Medical Decision Making Patient presents with severe bradycardia with preserved blood pressure. ST depression and inverted T waves in the inferior leads initially however he never had any chest pain. His first troponin is 40. Remainder of his lab work was relatively unremarkable. His potassium was borderline to high at 5 oh his magnesium was slightly high at 2.4. His second troponin is pending. Will admit to the ICU. We did initially look at starting on dopamine but since his blood pressure was adequate we did not. His heart rate did increase slightly while he was in the emergency room his ST depression began to resolve. He was given Plavix and heparin initially was concerned he may have evolved to a STEMI at some point. But he never did develop any chest pain. Medical Records I reviewed the patient's medical records. Lab Data I reviewed the patient's lab results. 11/27/23 13:36 11/27/23 13:36 Labs/Radiology: Radiology Impressions Chest X-Ray 11/27/23 13:21 IMPRESSION: Right lower lobe atelectasis. Laboratory Results WBC 6.78 10^3/uL (3.29-11.43) 11/27/23 13:36 RBC 4.86 10^6/uL (3.85-5.65) 11/27/23 13:36 Hgb 15.20 g/dL (11.27-16.99) 11/27/23 13:36 Hct 47.1 % (37-53) 11/27/23 13:36 MCV 96.9 fl (82-101) 11/27/23 13:36 MCH 31.3 pg (27-33) 11/27/23 13:36 MCHC 32.3 g/dL (30-55) 11/27/23 13:36 RDW 13.7 % (12.1-15.1) 11/27/23 13:36 Plt Count 193 10^3/cmm (157-399) 11/27/23 13:36 MPV 10.6 fL (7.4-10.4) H 11/27/23 13:36 Neut % (Auto) 64.3 % 11/27/23 13:36 Lymph % (Auto) 24.0 % 11/27/23 13:36 [place] % (Auto) 8.6 % 11/27/23 13:36 Eos % (Auto) 2.1 % 11/27/23 13:36 Baso % (Auto) 0.6 % 11/27/23 13:36 Neut # (Auto) 4.36 10^3/uL (1.8-7.7) 11/27/23 13:36 Lymph # (Auto) 1.6 10^3/uL (0.8-4.8) 11/27/23 13:36 [place] # (Auto) 0.6 10^3/uL (0.2-0.9) 11/27/23 13:36 Eos # (Auto) 0.1 10^3/uL (0.0-0.8) 11/27/23 13:36 Baso # (Auto) 0.0 10^3/uL (0.0-0.1) 11/27/23 13:36 Nucleated RBC % (auto) 0 % 11/27/23 13:36 Nucleated RBCs # 0.0 /100WBC 11/27/23 13:36 Sodium 139 mmol/L (136-145) 11/27/23 13:36 Potassium 5.0 mmol/L (3.5-5.1) 11/27/23 13:36 Chloride 104 mmol/L (98-107) 11/27/23 13:36 Carbon Dioxide 22 mmol/L (22-29) 11/27/23 13:36 Anion Gap 18.0 (5-19) 11/27/23 13:36 BUN 35 mg/dL (8-23) H 11/27/23 13:36 Creatinine 1.6 mg/dL (0.7-1.2) H 11/27/23 13:36 GFR Calculation Not Reportable 11/27/23 13:36 Glucose 115 mg/dL (65-115) 11/27/23 13:36 Calculated Osmolality 297 mOsm/kg (285-295) H 11/27/23 13:36 Calcium 9.2 mg/dL (8.5-10.5) 11/27/23 13:36 Magnesium 2.4 mg/dL (1.7-2.3) H 11/27/23 13:36 Total Bilirubin 0.8 mg/dL (0.15-1.2) 11/27/23 13:36 AST 30 U/L (0-40) 11/27/23 13:36 ALT 29 U/L (0-41) 11/27/23 13:36 Alkaline Phosphatase 60 U/L (40-130) 11/27/23 13:36 Troponin T Baseline 40 ng/L (0-15) H 11/27/23 13:36 Total Protein 6.3 g/dL (6.6-8.7) L 11/27/23 13:36 Albumin 4.3 g/dL (3.5-5.2) 11/27/23 13:36 Globulin 2.0 g/dL (1.3-4.6) 11/27/23 13:36 TSH 1.52 uIU/mL (0.27-4.20) 11/27/23 13:36 All radiology interpretation(s) finalized by discharge Discharge Plan Discharge Patient Disposition: Admitted As Inpatient Admit Provider: Sheng Kendall Clinical Impression: Subendocardial ischemia, HTN (hypertension), CAD (coronary artery disease), Bradycardia Condition: Stable Coding Level of Care Code ED Software Configuration Manager for Callie Meyers
[2023-11-27 13:40] LABS: Basophils % 0.6 %; Eosinophils # 0.1 10^3/uL (0.0-0.8); Eosinophils % 2.1 %; Hematocrit 47.1 % (37-53); Lymphocytes # 1.6 10^3/uL (0.8-4.8); Mean Corpuscular HGB Conc 32.3 g/dL (30-55); Mean Corpuscular Hemoglobin 31.3 pg (27-33); Mean Corpuscular Volume 96.9 fl (82-101); Mean Platelet Volume 10.6 fL (7.4-10.4); Monocytes # 0.6 10^3/uL (0.2-0.9); Monocytes % 8.6 %; Neutrophils # 4.36 10^3/uL (1.8-7.7); Neutrophils % 64.3 %; Nucleated Red Blood Cells % 0 %; Platelet Count 193 10^3/cmm (157-399); Red Blood Count 4.86 10^6/uL (3.85-5.65); Red Cell Distribution Width 13.7 % (12.1-15.1); White Blood Count 6.78 10^3/uL (3.29-11.43)
[2023-11-27 13:57] LABS: Troponin(5th) Baseline 40 ng/L (0-15)
[2023-11-27 14:11] LABS: Alanine Aminotransferase 29 U/L (0-41); Albumin Level 4.3 g/dL (3.5-5.2); Alkaline Phosphatase 60 U/L (40-130); Aspartate Amino Transferase 30 U/L (0-40); Blood Urea Nitrogen 35 mg/dL (8-23); Calcium 9.2 mg/dL (8.5-10.5); Carbon Dioxide 22 mmol/L (22-29); Chloride 104 mmol/L (98-107); Creatinine Clr Calc Pharmacy 46.8076; Glucose 115 mg/dL (65-115); Magnesium 2.4 mg/dL (1.7-2.3); Osmolality Calculated 297 mOsm/kg (285-295); Sodium 139 mmol/L (136-145); Thyroid Stimulating Hormone 1.52 uIU/mL (0.27-4.20); Total Bilirubin 0.8 mg/dL (0.15-1.2); Total Protein 6.3 g/dL (6.6-8.7)
--- NOTE | 2023-11-27 15:17 | P.HP_ITS ---
Providers/Chief Complaint 2 Admitting Physician: Sheng Kendall MD Primary Care Provider: Leidy Gallardo MD Chief Complaint: weakness, sob History of Present Illness Fercho Flynn is a 83 year old male with a past medical history of COPD, CHF, hypertension, obesity, CAD, who presents [facility] due to lightheadedness, cataracts, and bradycardia. Patient tells me that yesterday, in the evening time, he had a [employer] sandwich, with a lot of peppers and, after eating the sandwich, he felt unwell, after eating the sandwich had a lot of burping a lot of belching, he also reports feeling lightheaded, no syncope, he did have some epigastric discomfort, so he checked his vitals, his heart rate was in the low 30s his blood pressures were within normal limits oxygen saturation within normal limits, he tells me that with his chronic obstructive pulmonary emphysema he has been trying to wean himself off Advair and a lot of the other medications that he feels is worsening his shortness of breath and his cough he also tells me that he has been trying to wean himself off his oxygen, so he has been using it during the day, and now has not been using it during the night, he was worried about his pulse throughout the night, but he finally went to sleep, he woke up this morning, continue to have a lot of burping and belching and epigastric discomfort, he checked his pulse ox again, and his heart rate was in the low 30s, normal oxygen saturation, normal blood pressures he called his physician and she advised him to come to the emergency room, currently heart rates in the 30s, normotensive on room air, alert oriented x 3, denies any history of sinus dysfunction, no history of alcoholism, denies using beta-blockers denies any IV drug use, I had extensive discussion with him about pacemaker placement, I advised patient that at this time he possibly might require pacemaker placement, will have an discussion with cardiology, will monitor in ICU, monitor his heart rate, depending on his clinical progress he might need a pacemaker placement he is currently unsure he wants to talk to his granddaughter he is worried that the pacemaker placement will interfere with microwaves as he likes to cook, he likes to make gravy with all his meals, he is worried that the microwaves and making his meals will interfere with the pacemaker, he also is worried about his travel, as he was having issues with his portable oxygen, as he was having issues with this, he quit application process for portable oxygen, he is also tells me that he recently bought a stump driller, he is worried that potentially the pacemaker will interfere with that, I advised him to my knowledge I do not believe those will interfere with the pacemaker, except after pacemaker placement, he probably cannot do any heavy lifting for a few weeks, he also tells me that he had a couple family members that had a pacemaker placement, they did not have good outcomes, he also is worried about getting blood, and the contamination involved, I was able to provide him information about pacemaker placement, risks and benefits, he voiced understanding, all questions answered, however he still wants to talk to his granddaughter is not ready to make a decision as of yet. In terms of his CODE STATUS he tells me he only wants 1 round of CPR, okay for elective intubation but for short period of time, Review of Systems 2 Const: Denies: fever(s) Eyes: Denies: change in vision Card: Denies: chest pain Resp: Denies: dyspnea GI: Denies: abdominal pain : Denies: flank pain Neuro: Reports: dizziness Medications/Allergies Home Medications Medication Instructions Recorded Confirmed Last Taken Type vit C 250 mg-vit E 90 mg-zinc 40 1 tab PO BID 02/19/20 11/27/23 11/26/23 History mg-copper 1 hr-lgtjra-uhyhyo capsule (PreserVision AREDS-2) cholecalciferol (vitamin D3) 125 125 mcg PO QAM 02/14/21 11/27/23 11/26/23 History mcg (5,000 unit) capsule aspirin 81 mg tablet,delayed 81 mg PO BEDTIME 04/05/21 11/27/23 11/26/23 History release (Adult Aspirin Regimen) montelukast 10 mg tablet 10 mg PO DAILY #90 tabs 04/22/23 11/27/23 11/26/23 Rx (Singulair) budesonide-formoterol HFA 160 2 puff inhalation BID #10.2 grams 06/17/23 11/27/23 Unknown Rx mcg-4.5 mcg/actuation aerosol inhaler (Symbicort) meloxicam 15 mg tablet 15 mg PO QAM PRN pain 90 days #90 07/31/23 11/27/23 11/26/23 Rx tabs fluticasone 500 mcg-salmeterol 50 1 inh inhalation BID PRN Shortness 08/26/23 11/27/23 Unknown History mcg/dose blistr powdr for Of Breath Or Wheezing inhalation (Advair Diskus) lisinopril 20 mg tablet 20 mg PO QAM #90 tabs 11/04/23 11/27/23 11/26/23 Rx atorvastatin 10 mg tablet 10 mg PO BEDTIME #90 tabs 11/22/23 11/27/23 11/26/23 Rx cholecalciferol (vitamin D3) 125 125 mcg PO DAILY 11/27/23 11/27/23 11/26/23 History mcg (5,000 unit) tablet (Vitamin D3) docosahexaenoic acid (dha)-epa 120 1 cap PO DAILY 11/27/23 11/27/23 11/26/23 History mg-180 mg capsule (Fish Oil) furosemide 20 mg tablet 20 mg PO QAM 11/27/23 11/27/23 11/26/23 History yalibsxm-uncvcgxd-ewjus acid 400 1 tab PO DAILY 11/27/23 11/27/23 11/26/23 History mcg-vit K 20 mcg-lycop 300 mcg tablet potassium chloride 10 mEq 10 meq PO QAM 11/27/23 11/27/23 11/26/23 History capsule,extended release Allergies Allergy/AdvReac Type Severity Reaction Status Date / Time No Known Allergies Allergy Verified 11/27/23 13:24 PFSH Acute 2 PFSH: Medical History COVID Arthritis of left shoulder region Abnormal nuclear stress test CAD (coronary artery disease) Gastritis and duodenitis History of tobacco use Hypokalemia Anxiety HTN (hypertension) Histoplasmosis Macular degeneration Hyperlipidemia Left renal stone Urinary frequency Abnormal PSA Hydronephrosis, left Surgical History History of esophagogastroduodenoscopy (EGD) 2020 Hx of umbilical hernia repair Hx of inguinal hernia repair Hx of right knee surgery Patella injury Hx of cataract removal with insertion of prosthetic lens Family History Father , in his 80's CAD (coronary artery disease) Mother , at age 78 Lung disease Social History Smoking and tobacco/nicotine status: former use of tobacco/nicotine Quit status (tobacco/nicotine): has quit using Year quit tobacco: 1990 Former quit date comment: Hx of 1.5 PPD x 40 Years Alcohol intake: former Year of sobriety/quit date alcohol: 1960 Substance/Drug Use: never Adopted: No Caregiver/support person: No Lives independently: Yes Household members: none Marital status: / Current occupational status: retired and disabled 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[employer] Pets and animals: Yes Pets & animals: cat(s) Do you think of yourself as: Straight/Heterosexual Current gender identity: Male Vitals/I&O/Wt Last Vital Signs Temp 97.9 F 11/27/23 13:21 Pulse 45 L 11/27/23 14:35 Resp 19 H 11/27/23 14:35 BP 142/86 11/27/23 14:35 Pulse Ox 98 11/27/23 14:35 O2 Del Method Room Air 11/27/23 13:21 Weight last 48 hrs Weight 122.924 kg Physical Exam 2 Const: COMMON NORMALS: no acute distress ORIENTATION/CONSCIOUSNESS: Yes awake, Yes oriented to person, Yes oriented to place and Yes oriented to time Eye: COMMON NORMALS: Equal, round and reactive pupils present and EOMs intact bilaterally Lymph: LYMPHATIC: no lymphadenopathy noted Resp: COMMON NORMALS: normal respiratory effort, No retractions, No use of accessory muscles and clear to auscultation bilaterally AUSCULTATION: clear to auscultation bilaterally Cardio: COMMON NORMALS: no JVD, regular rate, regular rhythm, S1 normal heart sound present and S2 normal heart sound present RATE: bradycardic RHYTHM: regular rhythm HEART SOUNDS: S1 normal heart sound present and S2 normal heart sound present GI: COMMON NORMALS: Normal to inspection, nondistended, normoactive bowel sounds present, Soft to palpation and non-tender Extremity: COMMON NORMALS: no pedal edema Neuro: COMMON NORMALS: patient oriented x3, CN's II-XII intact bilaterally, moves all extremities and no focal motor deficits Psych: COMMON NORMALS: mental status grossly normal Data 11/27/23 13:36 11/27/23 13:36 A&P Assessment and plan (1) Bradycardia: (2) NSTEMI (non-ST elevated myocardial infarction): (3) CAD (coronary artery disease): Qualifiers: Coronary Disease-Associated Artery/Lesion type: tribal artery [place] vs. transplanted heart: tribal heart Associated angina: without angina Qualified Code(s): I25.10 - Atherosclerotic heart disease of tribal coronary artery without angina pectoris (4) CHF (congestive heart failure): Qualifiers: Heart failure type: combined systolic and diastolic Heart failure chronicity: chronic Qualified Code(s): I50.42 - Chronic combined systolic (congestive) and diastolic (congestive) heart failure (5) HTN (hypertension): Qualifiers: Hypertension type: essential hypertension Qualified Code(s): I10 - Essential (primary) hypertension (6) Fatty liver disease, nonalcoholic: Plan Bradycardia -No history of av ligia blockers, beta tho ? Review of EKG, shows T wave inversions in inferior leads, second-degree AV block type II -Spoke to cardiology, they will consult, -Will monitor patient in ICU -Dopamine if required, atropine pushes as needed -External pacing if required -Will await decision from patient about pacemaker placement if required -Serial EKGs, serial troponins, telemetry monitoring -Cardiac echo -Cardiac cath in 2020 showed 20% stenosis of right coronary artery, -Has asthma, chronic obstructive pulmonary emphysema, prior history of smoking, no current history ? CODE STATUS, patient only wants 1 round of CPR, is okay with elective intubation if required Attestations 2 Medical Necessity Statement*: Patient requires hospitalization, inpatient, greater than 2 midnights, for bradycardia concerns for second-degree AV block type II, NSTEMI T wave inversions in anterior leads Diagnoses Bradycardia R00.1 NSTEMI (non-ST elevated myocardial infarction) I21.4 Coronary artery disease involving tribal coronary artery of tribal heart without angina pectoris I25.10 Coronary Disease-Associated Artery/Lesion type: tribal artery [place] vs. transplanted heart: tribal heart Associated angina: without angina Chronic combined systolic and diastolic congestive heart failure I50.42 Heart failure type: combined systolic and diastolic Heart failure chronicity: chronic Essential hypertension I10 Hypertension type: essential hypertension Fatty liver disease, nonalcoholic K76.0
--- NOTE | 2023-11-27 15:21 | ECG_ITS ---
[facility] Test Date: 2023-11-27 Pat Name: Fercho Flynn Department: Room: Gender: Male [employer]: : 1940 Requested By: Matthew Pizarro Order Number: [id number] Dhruv MD: Michael Ng M.D. Measurements Intervals [place]rie Rate: 31 P: 0 CO: 0 QRS: 88 QRSD: 144 T: -58 QT: 560 QTc: 403 Interpretive Statements SINUS BRADYCARDIA WITH 2ND DEGREE AV BLOCK, 2:1 OR MOBITZ TYPE II INTRAVENTRICULAR CONDUCTION DELAY [130+ ms QRS DURATION] LATERAL MYOCARDIAL INFARCTION , PROBABLY RECENT [40+ ms Q WAVE AND/OR ST/T ABNORMALITY IN I/aVL/V5/V6] INFERIOR MYOCARDIAL INFARCTION , OF INDETERMINATE AGE [40+ ms Q WAVE AND/OR ST/T ABNORMALITY IN II/aVF] PROLONGED QT INTERVAL Compared to ECG 11/27/2023 13:34:16 First degree AV block no longer present Myocardial infarct finding still present Electronically Signed On 11-27-2023 16:16:32 CDT by Michael Ng M.D. [email or web address]
[2023-11-27 15:23] LABS: NT Pro B Type Natriuretic Pept 129 pg/mL (0-450)
[2023-11-27 15:34] LABS: INR 1.04 (0.8-1.2)
[2023-11-27 15:41] LABS: Lactic Sepsis W/Reflex 1.5 mmol/L (0.5-2.2)
[2023-11-27 15:52] LABS: Procalcitonin 0.15 ng/mL (0-0.5)
--- NOTE | 2023-11-27 15:56 | PC.NURSE ---
arrived from ED, AO x4 transferred self to bed. reported feeling a little SOB with movement
--- NOTE | 2023-11-27 15:58 | USCV_ITS ---
Fercho Flynn Age: 83 Gender: M : 1940 Exam Date: 11/27/2023 18:15 Ordering Phys: Sheng Kendall MD Technologist: MARLENE Exam Location: [facility] [place] Indication: bradycardia, SOB, history of COPD / CHF. No history of cardiac intervention per patient. Dr. Basilio was present at real-time. BP: 146 / 57 HR: 33 Rhythm: Sinus bradycardia Technical Quality: Adequate MEASUREMENTS (Male / Female) Normal Values 2D ECHO LV Diastolic Diameter PLAX 3.6 cm 4.2 - 5.9 / 3.9 - 5.3 cm IVS Diastolic Thickness 1.5 cm 0.6 - 1.0 / 0.6 - 0.9 cm IVS Systolic Thickness 1.7 cm LVPW Diastolic Thickness 1.7 cm 0.6 - 1.0 / 0.6 - 0.9 cm LVPW Systolic Thickness 1.7 cm LVOT Diameter 2.3 cm LV Ejection Fraction 2D Teich 76.8 % LV Ejection Fraction MOD 2C 63.3 % LV Ejection Fraction 2C AL 66.4 % LA Diameter 4.1 cm Aorta at Sinotubular Diameter 3.3 cm IVC Diameter 2.6 cm M-MODE LA Ao Ratio MM 1.3 AV Cusp Separation MM 1.9 cm DOPPLER AV Peak Velocity 236.0 cm/s LVOT Peak Velocity 103.0 cm/s AV Area Cont Eq vti 2.2 cm squared AV Area Cont Eq pk 1.8 cm squared MV Peak Velocity 107.0 cm/s MV Area PHT 2.8 cm squared Mitral E to A Ratio 0.6 TR Peak Velocity 170.0 cm/s TR Peak Gradient 11.6 mmHg TV Peak E Velocity 28.0 cm/s Right Atrial Pressure 3.0 mmHg Pulmonary Artery Systolic Pressu 14.6 mmHg PV Peak Velocity 117.0 cm/s FINDINGS Left Ventricle Normal left ventricular size and systolic function, EF 63%. Mild concentric left trickle hypertrophy.Grade I/IV diastolic dysfunction (abnormal relaxation filling pattern), normal to mildly elevated filling pressures. Right Ventricle The right ventricle is normal in size and function. Right Atrium The right atrium is normal in size. Left Atrium The left atrium is normal in size. Mitral Valve No gross abnormalities noted Aortic Valve Thickened aortic valve. Aortic valve sclerosis. Tricuspid Valve No gross abnormalities noted Pulmonic Valve No gross abnormalities noted Pericardium Normal pericardium without effusion. Aorta Normal ascending aorta dimension. IVC The inferior vena cava appears normal. CONCLUSIONS Normal left ventricular size and systolic function, EF 63%. Mild concentric left trickle hypertrophy.Grade I/IV diastolic dysfunction (abnormal relaxation filling pattern), normal to mildly elevated filling pressures. Aortic valve sclerosis. There is no pericardial effusion. There are no intracardiac masses. Compared to the previous study from 02/10/2021, there is improvement of the LV ejection fraction Dr John Basilio MD [facility] (Electronically Signed) Final Date: 27 November 2023 19:29 S
[2023-11-27 16:37] LABS: Erythrocyte Sedimentation Rate 5 mm/hr (0-10)
--- NOTE | 2023-11-27 16:41 | P.CONIM_ITS ---
Providers/Reason For Consult 2 Consulting Physician/Specialty*: Cardiovascular medicine Reason for Consult*: Abnormal EKG Requesting Physician: Emergency room Attending Physician: Sheng Kendall MD Primary Care Provider: Leidy Gallardo MD History of Present Illness History of Present Illness Fercho Flynn is a 83 year old male with no known prior history of cardiac conduction system disease. He has nonobstructive coronary artery disease and was a remote smoker. He also has a history of hypertension, dyslipidemia, kidney stones, COPD with oxygen at night, obesity and a mild cardiomyopathy. He lives alone. He was out tinkering with his tractor and other farm implements yesterday. He was hungry and went to the local [employer] to get a sandwich. After he finished the sandwich she began to feel poorly. He put his blood pressure cuff on and noticed that his heart rate was in the 30s but his blood pressure was normal. He said I just did not feel right . Not long thereafter he went to bed. He put his oxygen on. When he woke up this morning around 7:00 his heart rate was still in the 30s and he just did not quite feel right. He talked to his granddaughter who recommended he go to the local clinic. He did so and they obtained an EKG. They recommended he come to the emergency room. I was originally contacted by the emergency room physician for concern of a acute myocardial infarction. He is not having an acute myocardial infarction. His EKG shows 2-1 AV block with a heart rate of about 40, left atrial abnormality and an underlying right bundle branch block. There are small Q waves inferior laterally. He is hemodynamically stable and has been placed in the ICU. His last echo was in 2020 which revealed an ejection fraction of 45 to 50%. His troponin now is 40. His BUN is 35 with a creatinine of 1.6. His CBC is normal. He had an angiogram of his heart in 2020 which showed nonobstructive coronary disease. To the best of my knowledge, he is not on any anticoagulants or AV ligia blocking agents at home. He does take low-dose aspirin Review of Systems 2 Narrative: Review of systems is negative Medications/Allergies Home Medications Medication Instructions Recorded Confirmed Last Taken Type vit C 250 mg-vit E 90 mg-zinc 40 1 tab PO BID 02/19/20 11/27/23 11/26/23 History mg-copper 1 hn-lathig-onlzhj capsule (PreserVision AREDS-2) cholecalciferol (vitamin D3) 125 125 mcg PO QAM 02/14/21 11/27/23 11/26/23 History mcg (5,000 unit) capsule aspirin 81 mg tablet,delayed 81 mg PO BEDTIME 04/05/21 11/27/23 11/26/23 History release (Adult Aspirin Regimen) montelukast 10 mg tablet 10 mg PO DAILY #90 tabs 04/22/23 11/27/23 11/26/23 Rx (Singulair) budesonide-formoterol HFA 160 2 puff inhalation BID #10.2 grams 06/17/23 11/27/23 Unknown Rx mcg-4.5 mcg/actuation aerosol inhaler (Symbicort) meloxicam 15 mg tablet 15 mg PO QAM PRN pain 90 days #90 07/31/23 11/27/23 11/26/23 Rx tabs fluticasone 500 mcg-salmeterol 50 1 inh inhalation BID PRN Shortness 08/26/23 11/27/23 Unknown History mcg/dose blistr powdr for Of Breath Or Wheezing inhalation (Advair Diskus) lisinopril 20 mg tablet 20 mg PO QAM #90 tabs 11/04/23 11/27/23 11/26/23 Rx atorvastatin 10 mg tablet 10 mg PO BEDTIME #90 tabs 11/22/23 11/27/23 11/26/23 Rx cholecalciferol (vitamin D3) 125 125 mcg PO DAILY 11/27/23 11/27/23 11/26/23 History mcg (5,000 unit) tablet (Vitamin D3) docosahexaenoic acid (dha)-epa 120 1 cap PO DAILY 11/27/23 11/27/23 11/26/23 History mg-180 mg capsule (Fish Oil) furosemide 20 mg tablet 20 mg PO QAM 11/27/23 11/27/23 11/26/23 History khkcahjs-jheggkxl-wcvyq acid 400 1 tab PO DAILY 11/27/23 11/27/23 11/26/23 History mcg-vit K 20 mcg-lycop 300 mcg tablet potassium chloride 10 mEq 10 meq PO QAM 11/27/23 11/27/23 11/26/23 History capsule,extended release Allergies Allergy/AdvReac Type Severity Reaction Status Date / Time No Known Allergies Allergy Verified 11/27/23 13:24 PFSH Acute 2 PFSH: Medical History (Updated 11/27/23 @ 16:47 by Kota Cueto MD) Second degree AV block, Mobitz type II COVID Arthritis of left shoulder region Abnormal nuclear stress test CAD (coronary artery disease) Gastritis and duodenitis History of tobacco use Hypokalemia Anxiety HTN (hypertension) Histoplasmosis Macular degeneration Hyperlipidemia Left renal stone Urinary frequency Abnormal PSA Hydronephrosis, left Surgical History History of esophagogastroduodenoscopy (EGD) 2020 Hx of umbilical hernia repair Hx of inguinal hernia repair Hx of right knee surgery Patella injury Hx of cataract removal with insertion of prosthetic lens Family History Father , in his 80's CAD (coronary artery disease) Mother , at age 78 Lung disease Social History Smoking and tobacco/nicotine status: former use of tobacco/nicotine Quit status (tobacco/nicotine): has quit using Year quit tobacco: 1990 Former quit date comment: Hx of 1.5 PPD x 40 Years Alcohol intake: former Year of sobriety/quit date alcohol: 1960 Substance/Drug Use: never Adopted: No Caregiver/support person: No Lives independently: Yes Household members: none Marital status: / Current occupational status: retired and disabled 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[employer] Pets and animals: Yes Pets & animals: cat(s) Do you think of yourself as: Straight/Heterosexual Current gender identity: Male Vitals/I&O/Wt Last Vital Signs Temp 98.2 F 11/27/23 15:39 Pulse 45 L 11/27/23 16:10 Resp 17 11/27/23 16:10 BP 146/57 11/27/23 16:10 Pulse Ox 99 11/27/23 16:10 O2 Del Method Nasal Cannula 11/27/23 16:00 Weight last 48 hrs Weight 271 lb Physical Exam 2 Narrative: GENERAL: Obese man comfortable at rest HEENT: Exam within normal limits. NECK: Supple without jugular vein distention. The carotid upstroke is normal without bruits. BACK: Exam normal. LUNGS: Clear. HEART: Regular rate and rhythm. ABDOMEN: Benign without organomegaly or tenderness. EXTREMITIES: No edema. NEUROLOGIC: Exam normal. SKIN: Unremarkable. Data 11/27/23 13:36 11/27/23 13:36 A&P Assessment and plan (1) HTN (hypertension): Qualifiers: Hypertension type: essential hypertension Qualified Code(s): I10 - Essential (primary) hypertension (2) CAD (coronary artery disease): Qualifiers: Coronary Disease-Associated Artery/Lesion type: [place] artery [place] vs. transplanted heart: [place] heart Associated angina: without angina Qualified Code(s): I25.10 - Atherosclerotic heart disease of [place] coronary artery without angina pectoris (3) CHF (congestive heart failure): Qualifiers: Heart failure type: combined systolic and diastolic Heart failure chronicity: chronic Qualified Code(s): I50.42 - Chronic combined systolic (congestive) and diastolic (congestive) heart failure (4) Bradycardia: (5) Morbid obesity: (6) Second degree AV block, Mobitz type II: Plan His EKG shows 2-1 AV block. If 1 looks at the tracing the extra P wave is at the end of the T wave. He needs a permanent pacemaker. He was originally very fearful of this stating that he had 2 family members who have had them and had trouble. He is also worried that he cannot use a microwave since he lives alone and prepares almost all of his meals using a microwave. I told him that a microwave was acceptable these days. I also told him that a pacemaker implantation is relatively simple and that he should be out of the hospital the following day. He spoke to a couple of his family members and has agreed to proceed. Consult Attestations 2 Medical Necessity Statement: Needs hospitalization for high degree AV block and permanent pacemaker placement and Moderate Time for a total of 35 minutes, includes reviewing past or interval history, examining/interviewing patient, placing orders, counseling patient/family/other support, updating patient/family/other support, discussing plan of care with staff, communicating with other healthcare providers and documenting encounter Diagnoses Essential hypertension I10 Hypertension type: essential hypertension Coronary artery disease involving [place] coronary artery of [place] heart without angina pectoris I25.10 Coronary Disease-Associated Artery/Lesion type: [place] artery [place] vs. transplanted heart: [place] heart Associated angina: without angina Chronic combined systolic and diastolic congestive heart failure I50.42 Heart failure type: combined systolic and diastolic Heart failure chronicity: chronic Bradycardia R00.1 Morbid obesity E66.01 Second degree AV block, Mobitz type II I44.1
[2023-11-27 16:44] LABS: Chol HDL Ratio 2.61 mg/dL (1.0-5.00); Cholesterol 146 mg/dL (0-200); HDL Cholesterol 56 mg/dL (60-100); LDL Cholesterol Calculated 64 mg/dL (50-129); LDL HDL Ratio 1.14 RATIO (0.00-3.22); Thyroid Stimulating Hormone 1.52 uIU/mL (0.27-4.20); Triglycerides 132 mg/dL (0-150)
[2023-11-27 16:49] LABS: Alcohol Level < 10 mg/dL (0-10)
[2023-11-27] MEDS: sodium chloride 0.9% 1,000 ML 50 ML IV (16:52)
[2023-11-27 16:58] LABS: Estmated Average Glucose 126
[2023-11-27] MEDS: pantoprazole 40 mg SDV IVP (16:59)
[2023-11-27 17:27] LABS: Troponin 5 2HR 32.07 ng/L (0-15)
[2023-11-27 17:28] LABS: Troponin 5 2HR Delta -7.93 ABS# (0-10)
--- NOTE | 2023-11-27 18:06 | PM.CONSULT ---
Providers/Reason For Consult Consulting Physician/Specialty*: CHUNG Basilio MD/cardiology Reason for Consult*: Patient is a symptomatic bradycardia/consider permanent pacer implantation Requesting Physician: Dr. Kendall/Dr. Cueto Attending Physician: Sheng Kendall MD Primary Care Provider: Leidy Gallardo MD History of Present Illness History of Present Illness Fercho Flynn is a 83 year old male with a history of nonischemic cardiomyopathy, congestive heart failure is admitted to the hospital through the emergency room where he presented with complaints of shortness of breath, dizziness and weakness. He has found to be bradycardic with a heart rate in the 30s. The EKG shows sinus rhythm with a second-degree type II AV block. Patient has a history of mild coronary disease by angiogram in June 2021. He has a history of COPD, high blood pressure and morbid obesity. The symptoms started yesterday evening after having a [employer] sandwich. Apparently the patient had a lot of belching and burping yesterday evening. His heart rate was in the 30s based on the blood pressure monitor. He was otherwise feeling okay. No syncopal episodes. Apparently he slept fairly well through the night. As he woke up this morning, his heart rate was still in the 30s and he was not feeling well. He did not have any nausea or vomiting this morning. He might have had some pain in the left upper part of the chest yesterday but no chest pain today. No fever, chills or cough. His son had a myocardial infarction in his 50s. He had an ICD implanted and then later on . His sister has a permanent pacemaker medication. He has a history of heavy alcohol abuse and smoking abuse. Lately he quit smoking and drinking. He is hard of hearing. He had a multiple eye surgeries for scar tissue and cataract. Lately he is getting treatment for macular degeneration. His vision also is very poor. Review of Systems Narrative: CONSTITUTIONAL: No fever or chills. EYES: No blurring of vision or other visual disturbances lately. ENT: No hoarseness of voice, auditory disturbances or sore throat. CARDIOVASCULAR: As mentioned above. RESPIRATORY: No significant cough. GASTROINTESTINAL: No hematemesis or melena. GENITOURINARY: No dysuria or hematuria. INTEGUMENTARY: No skin rashes or history of skin cancer. NEURO: No transient ischemic attacks or amaurosis. PSYCHIATRIC: No history of psychosis or major depression. HEMATOLOGIC: No bleeding disorders or significant anemia. ENDOCRINE: No history of polyuria or polydipsia. MUSCULOSKELETAL: No recent joint pain or swelling. ALLERGY/IMMUNOLOGY: As mentioned above. Medications/Allergies Home Medications Medication Instructions Recorded Confirmed Last Taken Type vit C 250 mg-vit E 90 mg-zinc 40 1 tab PO BID 02/19/20 11/27/23 11/26/23 History mg-copper 1 iv-ssuxui-sywajg capsule (PreserVision AREDS-2) cholecalciferol (vitamin D3) 125 125 mcg PO QAM 02/14/21 11/27/23 11/26/23 History mcg (5,000 unit) capsule aspirin 81 mg tablet,delayed 81 mg PO BEDTIME 04/05/21 11/27/23 11/26/23 History release (Adult Aspirin Regimen) montelukast 10 mg tablet 10 mg PO DAILY #90 tabs 04/22/23 11/27/23 11/26/23 Rx (Singulair) budesonide-formoterol HFA 160 2 puff inhalation BID #10.2 grams 06/17/23 11/27/23 Unknown Rx mcg-4.5 mcg/actuation aerosol inhaler (Symbicort) meloxicam 15 mg tablet 15 mg PO QAM PRN pain 90 days #90 07/31/23 11/27/23 11/26/23 Rx tabs fluticasone 500 mcg-salmeterol 50 1 inh inhalation BID PRN Shortness 08/26/23 11/27/23 Unknown History mcg/dose blistr powdr for Of Breath Or Wheezing inhalation (Advair Diskus) lisinopril 20 mg tablet 20 mg PO QAM #90 tabs 11/04/23 11/27/23 11/26/23 Rx atorvastatin 10 mg tablet 10 mg PO BEDTIME #90 tabs 11/22/23 11/27/23 11/26/23 Rx cholecalciferol (vitamin D3) 125 125 mcg PO DAILY 11/27/23 11/27/23 11/26/23 History mcg (5,000 unit) tablet (Vitamin D3) docosahexaenoic acid (dha)-epa 120 1 cap PO DAILY 11/27/23 11/27/23 11/26/23 History mg-180 mg capsule (Fish Oil) furosemide 20 mg tablet 20 mg PO QAM 11/27/23 11/27/23 11/26/23 History ukikqhgb-ysukknbi-frben acid 400 1 tab PO DAILY 11/27/23 11/27/23 11/26/23 History mcg-vit K 20 mcg-lycop 300 mcg tablet potassium chloride 10 mEq 10 meq PO QAM 11/27/23 11/27/23 11/26/23 History capsule,extended release Allergies Allergy/AdvReac Type Severity Reaction Status Date / Time No Known Allergies Allergy Verified 11/27/23 13:24 Current Medications Generic Name Dose Route Start Last Admin Trade Name Freq PRN Reason Stop Dose Admin Sodium Chloride 1,000 mls @ 50 mls/hr 11/27/23 15:58 11/27/23 16:52 Sodium Chloride 0.9% IV 50 mls/hr .Q20H SONG Administration Pantoprazole Sodium 40 mg 11/27/23 15:58 11/27/23 16:59 Pantoprazole 40 Mg Sdv IVP 40 mg Q24H SONG Administration PFSH Acute PFSH: Medical History Second degree AV block, Mobitz type II COVID Arthritis of left shoulder region Abnormal nuclear stress test CAD (coronary artery disease) Gastritis and duodenitis History of tobacco use Hypokalemia Anxiety HTN (hypertension) Histoplasmosis Macular degeneration Hyperlipidemia Left renal stone Urinary frequency Abnormal PSA Hydronephrosis, left Surgical History History of esophagogastroduodenoscopy (EGD) 2020 Hx of umbilical hernia repair Hx of inguinal hernia repair Hx of right knee surgery Patella injury Hx of cataract removal with insertion of prosthetic lens Family History Father , in his 80's CAD (coronary artery disease) Mother , at age 78 Lung disease Social History Smoking and tobacco/nicotine status: former use of tobacco/nicotine Quit status (tobacco/nicotine): has quit using Year quit tobacco: 1990 Former quit date comment: Hx of 1.5 PPD x 40 Years Alcohol intake: former Year of sobriety/quit date alcohol: 1960 Substance/Drug Use: never Adopted: No Caregiver/support person: No Lives independently: Yes Household members: none Marital status: / Current occupational status: retired and disabled 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 Pets and animals: Yes Pets & animals: cat(s) Do you think of yourself as: Straight/Heterosexual Current gender identity: Male Vitals/I&O/Wt Last Vital Signs Temp 98.2 F 11/27/23 15:39 Pulse 36 L 11/27/23 17:44 Resp 20 H 11/27/23 17:44 BP 146/57 11/27/23 16:10 Pulse Ox 99 11/27/23 17:44 O2 Del Method Nasal Cannula 11/27/23 17:44 O2 Flow Rate 2 11/27/23 17:44 Weight last 48 hrs Weight 271 lb Physical Exam Narrative: GENERAL: The patient is alert and oriented times three. Not in any acute distress. Obese. Hard of hearing. HEENT: No significant pallor, icterus or lymphadenopathy.Oral cavity: There are no mucous membrane lesions. NECK: Trachea appears to be central. No masses noted. No JVD or thyromegaly appreciated. RESPIRATORY: Chest is symmetrical. No intercostals muscle retraction or any accessory muscle activation. There is no chest wall tenderness. Breath sounds are heard bilaterally. No rales or rhonchi heard. No evidence of any consolidation. BREASTS: Deferred. HEART: The heart sounds are normal. No S3 or S4. No significant murmurs. No pericardial rub ABDOMEN: No vessel pulsations or distention. No tenderness. No organomegaly appreciated. Bowel sounds are normally heard. : Deferred. RECTAL: Deferred. LYMPHATIC: No lymphadenopathy noted in the neck. EXTREMITIES: No edema or cyanosis. No clubbing. MUSCULOSKELETAL: No acute joint deformities or swelling SKIN: There are no significant rashes or ecchymosis NEUROPSYCHIATRIC: The patient is alert and oriented x3. Appears to be in a good mood. No tremors or rigidity noted. Data 11/28/23 03:24 11/28/23 03:24 Other Labs: Laboratory Last Values WBC 6.78 10^3/uL (3.29-11.43) 11/27/23 13:36 RBC 4.86 10^6/uL (3.85-5.65) 11/27/23 13:36 Hgb 15.20 g/dL (11.27-16.99) 11/27/23 13:36 Hct 47.1 % (37-53) 11/27/23 13:36 MCV 96.9 fl (82-101) 11/27/23 13:36 MCH 31.3 pg (27-33) 11/27/23 13:36 MCHC 32.3 g/dL (30-55) 11/27/23 13:36 RDW 13.7 % (12.1-15.1) 11/27/23 13:36 Plt Count 193 10^3/cmm (157-399) 11/27/23 13:36 MPV 10.6 fL (7.4-10.4) H 11/27/23 13:36 Neut % (Auto) 64.3 % 11/27/23 13:36 Lymph % (Auto) 24.0 % 11/27/23 13:36 [place] % (Auto) 8.6 % 11/27/23 13:36 Eos % (Auto) 2.1 % 11/27/23 13:36 Baso % (Auto) 0.6 % 11/27/23 13:36 Neut # (Auto) 4.36 10^3/uL (1.8-7.7) 11/27/23 13:36 Lymph # (Auto) 1.6 10^3/uL (0.8-4.8) 11/27/23 13:36 [place] # (Auto) 0.6 10^3/uL (0.2-0.9) 11/27/23 13:36 Eos # (Auto) 0.1 10^3/uL (0.0-0.8) 11/27/23 13:36 Baso # (Auto) 0.0 10^3/uL (0.0-0.1) 11/27/23 13:36 Nucleated RBC % (auto) 0 % 11/27/23 13:36 Nucleated RBCs # 0.0 /100WBC 11/27/23 13:36 ESR 5 mm/hr (0-10) 11/27/23 13:36 PT 14.00 SECONDS (12.1-14.9) 11/27/23 13:36 INR 1.04 (0.8-1.2) 11/27/23 13:36 Sodium 139 mmol/L (136-145) 11/27/23 13:36 Potassium 5.0 mmol/L (3.5-5.1) 11/27/23 13:36 Chloride 104 mmol/L (98-107) 11/27/23 13:36 Carbon Dioxide 22 mmol/L (22-29) 11/27/23 13:36 Anion Gap 18.0 (5-19) 11/27/23 13:36 BUN 35 mg/dL (8-23) H 11/27/23 13:36 Creatinine 1.6 mg/dL (0.7-1.2) H 11/27/23 13:36 GFR Calculation Not Reportable 11/27/23 13:36 Glucose 115 mg/dL (65-115) 11/27/23 13:36 Estimat Average Glucose 126 11/27/23 13:36 Hemoglobin A1c 6.0 % (4.0-6.0) 11/27/23 13:36 Calculated Osmolality 297 mOsm/kg (285-295) H 11/27/23 13:36 Lactic Acid 1.5 mmol/L (0.5-2.2) 11/27/23 13:36 Calcium 9.2 mg/dL (8.5-10.5) 11/27/23 13:36 Magnesium 2.4 mg/dL (1.7-2.3) H 11/27/23 13:36 Total Bilirubin 0.8 mg/dL (0.15-1.2) 11/27/23 13:36 AST 30 U/L (0-40) 11/27/23 13:36 ALT 29 U/L (0-41) 11/27/23 13:36 Alkaline Phosphatase 60 U/L (40-130) 11/27/23 13:36 Troponin T Baseline 40 ng/L (0-15) H 11/27/23 13:36 Troponin T 120 Minute 32.07 ng/L (0-15) H 11/27/23 16:50 Delta Troponin T -7.93 ABS# (0-10) L 11/27/23 16:50 C-Reactive Protein 3.0 mg/L (0.0-4.9) 11/27/23 13:36 NT-Pro-B Natriuret Pep 129 pg/mL (0-450) 11/27/23 13:36 Total Protein 6.3 g/dL (6.6-8.7) L 11/27/23 13:36 Albumin 4.3 g/dL (3.5-5.2) 11/27/23 13:36 Globulin 2.0 g/dL (1.3-4.6) 11/27/23 13:36 Triglycerides 132 mg/dL (0-150) 11/27/23 13:36 Cholesterol 146 mg/dL (0-200) 11/27/23 13:36 LDL Cholesterol, Calc 64 mg/dL (50-129) 11/27/23 13:36 HDL Cholesterol 56 mg/dL (60-100) L 11/27/23 13:36 LDL/HDL Ratio 1.14 RATIO (0.00-3.22) 11/27/23 13:36 Cholesterol/HDL Ratio 2.61 mg/dL (1.0-5.00) 11/27/23 13:36 Procalcitonin 0.15 ng/mL (0-0.5) 11/27/23 13:36 TSH 1.52 uIU/mL (0.27-4.20) 11/27/23 13:36 TSH 1.52 uIU/mL (0.27-4.20) 11/27/23 13:36 Ethyl Alcohol < 10 mg/dL (0-10) 11/27/23 13:36 EKG 1: My Interpretation: Sinus bradycardia with a rate of 31 bpm. Second-degree type II AV block. T inversions in the inferior and anterolateral leads. Other data: The chest x-ray from today revealed borderline cardiac silhouette with no lung infiltrates. Possible atelectatic changes in the right lower lobe area. A&P Assessment and plan (1) Bradycardia: Patient seems to have symptomatic bradycardia with EKG evidence of second-degree type II AV block. No evidence of medical injury. Patient is not on any beta-blockers or AV ligia blocking agents. The thyroid function is within normal limits. Possibility of coronary ischemia cannot be completely excluded. Apparently had a mild disease in the right coronary artery in 2020. He is at inversions in the inferolateral leads is a concern. (2) Nonischemic congestive cardiomyopathy: Patient has history of nonischemic cardiomyopathy. Currently the LV ejection fraction appears to be within normal limits, based on the echocardiogram. (3) HTN (hypertension): Currently normotensive. Qualifiers: Hypertension type: essential hypertension Qualified Code(s): I10 - Essential (primary) hypertension (4) CAD (coronary artery disease): Mild CAD by angiogram as mentioned above. Patient has a family history for premature heart disease. Patient has prominent inversions in the inferior and anterolateral leads. Possibility of ischemia in the distribution of the right coronary artery causing the symptom is a concern. This may need to be ruled out. His EKG shows inversions in the inferior and anterolateral leads. Qualifiers: Associated angina: without angina Coronary Disease-Associated Artery/Lesion type: [place] artery [place] vs. transplanted heart: [place] heart Qualified Code(s): I25.10 - Atherosclerotic heart disease of [place] coronary artery without angina pectoris Plan I agree with the permanent pacer implantation, if the patient has no significant obstructive coronary disease. Discussed with Dr. Cueto. It was thought to be appropriate to consider cardiac catheterization in the morning and consider the pacemaker, if there is no significant obstructive coronary artery disease. Dr. Cueto will be performing the angiogram in the morning. Will keep the patient NPO. Consult Attestations Medical Necessity Statement: Patient requires continued hospital stay for close monitoring and further management Coding Level of Care Code 82675 Diagnoses Bradycardia R00.1 Nonischemic congestive cardiomyopathy I42.0 Essential hypertension I10 Hypertension type: essential hypertension Coronary artery disease involving [place] coronary artery of [place] heart without angina pectoris I25.10 Associated angina: without angina Coronary Disease-Associated Artery/Lesion type: [place] artery [place] vs. transplanted heart: [place] heart
--- NOTE | 2023-11-27 21:44 | ECG_ITS ---
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 Measurements Intervals [place] Rate: 34 P: 38 UT: 271 QRS: 73 QRSD: 150 T: -55 QT: 560 QTc: 423 Interpretive Statements SINUS BRADYCARDIA WITH FIRST DEGREE AV BLOCK RIGHT BUNDLE BRANCH BLOCK [120+ ms QRS DURATION, UPRIGHT V1, 40+ ms S IN I/aVL/V4/V5/V6] POSSIBLE ANTERIOR MYOCARDIAL INFARCTION , OF INDETERMINATE AGE [30 ms Q WAVE IN V3/V4, OR R < 0.2 mV IN V4] MODERATE T-WAVE ABNORMALITY, CONSIDER LATERAL ISCHEMIA [-0.1+ mV T-WAVE IN I/aVL/V5/V6] MARKED T-WAVE ABNORMALITY, CONSIDER INFERIOR ISCHEMIA [-0.5+ mV T-WAVE IN II/aVF] Compared to ECG 11/27/2023 14:24:01 First degree AV block now present Right bundle-branch block now present T-wave abnormality now present Possible ischemia now present Intraventricular conduction delay no longer present Myocardial infarct finding still present Electronically Signed On 11-28-2023 8:37:46 CDT by Michael Ng M.D. [id number]
[2023-11-27] MEDS: atorvastatin 40 mg Tablet 10 MG PO (21:59)
[2023-11-27] MEDS: aspirin 81 mg EC Tablet PO (21:59)
[2023-11-28] VITALS (49 sets, daily range): BP systolic 92–147; BP diastolic 42–77; PULSE 27–63; RESP 11–24; TEMP 36.2–36.8; O2SAT 93–100
[2023-11-28 04:01] LABS: Basophils % 0.5 %; Eosinophils # 0.2 10^3/uL (0.0-0.8); Eosinophils % 4.2 %; Hematocrit 44.3 % (37-53); Lymphocytes # 1.7 10^3/uL (0.8-4.8); Lymphocytes % 30.9 %; Mean Corpuscular HGB Conc 31.8 g/dL (30-55); Mean Corpuscular Hemoglobin 30.9 pg (27-33); Mean Corpuscular Volume 97.1 fl (82-101); Mean Platelet Volume 10.9 fL (7.4-10.4); Monocytes # 0.5 10^3/uL (0.2-0.9); Monocytes % 9.6 %; Neutrophils # 2.99 10^3/uL (1.8-7.7); Neutrophils % 54.4 %; Nucleated Red Blood Cells % 0 %; Platelet Count 150 10^3/cmm (157-399); Red Blood Count 4.56 10^6/uL (3.85-5.65); Red Cell Distribution Width 13.5 % (12.1-15.1)
[2023-11-28 04:30] LABS: Alanine Aminotransferase 25 U/L (0-41); Albumin Level 3.8 g/dL (3.5-5.2); Alkaline Phosphatase 54 U/L (40-130); Anion Gap 15.5 (5-19); Aspartate Amino Transferase 25 U/L (0-40); Blood Urea Nitrogen 28 mg/dL (8-23); Calcium 8.7 mg/dL (8.5-10.5); Carbon Dioxide 25 mmol/L (22-29); Chloride 107 mmol/L (98-107); Creatinine Clr Calc Pharmacy 57.6094; Globulin 2.2 g/dL (1.3-4.6); Glucose 85 mg/dL (65-115); Magnesium 2.3 mg/dL (1.7-2.3); Osmolality Calculated 301 mOsm/kg (285-295); Phosphorus 3.4 mg/dL (2.5-4.5); Potassium 4.5 mmol/L (3.5-5.1); Sodium 143 mmol/L (136-145); Total Bilirubin 0.9 mg/dL (0.15-1.2)
[2023-11-28 06:36] LABS: Add Urine Microscopic? NO; Charge for UA Resulting for Rev
[2023-11-28 06:40] LABS: Bilirubin Urine Neg (Negative); Blood Urine Neg (Negative); Glucose Urine UA Norm (Normal); Ketones Urine Negative (Negative); Leukocyte Esterase Urine Negative (Negative); Nitrate Urine Negative (Negative); Protein Urine Neg (Negative); Specific Gravity, Urine 1.015 (1.005-1.030); Urine Appearance Clear (CLEAR); Urine Color Yellow (Yellow); Urobilinogen Urine Neg (Negative); pH Urine 6 (5-7)
[2023-11-28 06:47] LABS: Amphetamines Screen Urine Negative (Negative); Barbiturates Screen Urine Negative (Negative); Benzodiazepines Screen Urine Negative (Negative); Cocaine Screen Urine Negative (Negative); Opiate Screen Urine Negative (Negative); PCP Screen Urine Negative (Negative); THC Screen Urine Negative (Negative)
--- NOTE | 2023-11-28 07:18 | P.PN_ITS ---
Subjective 2 Subjective: Patient has been stable overnight. His heart rate gets down into the high 20s at times generally are in the mid 30s to 40s. It was requested I perform coronary angiography prior to the pacemaker placement. Patient did not have any chest pain prior to this incident and the troponins were basically negative. His first troponin was 40, the second 33 and the third 29. The only new finding where the changes on the EKG. This morning he is comfortable. He is still in second-degree heart block. Vitals/I&O/Wt Last Vital Signs Temp 97.8 F 11/28/23 04:00 Pulse 33 L 11/28/23 06:00 Resp 17 11/28/23 06:00 BP 106/60 11/28/23 06:00 Pulse Ox 94 11/28/23 06:00 O2 Del Method Nasal Cannula 11/28/23 06:00 O2 Flow Rate 2 11/28/23 06:00 11/27/23 11/28/23 11/28/23 22:59 06:59 14:59 Intake Total 250 / 250 Output Total 500 / 500 Balance 250 / 250 -500 / -250 Weight last 48 hrs Weight 266 lb 14.4 oz Weight 266 lb 14.4 oz Weight 271 lb Physical Exam 2 Narrative: GENERAL: In general he looks and feels well this morning HEENT: Exam within normal limits. NECK: Supple without jugular vein distention. The carotid upstroke is normal without bruits. BACK: Exam normal. LUNGS: Clear. HEART: Regular rate and rhythm. Bradycardia ABDOMEN: Benign without organomegaly or tenderness. EXTREMITIES: No edema. NEUROLOGIC: Exam normal. SKIN: Unremarkable. Data 11/28/23 03:24 11/28/23 03:24 A&P Assessment and plan (1) HTN (hypertension): Qualifiers: Hypertension type: essential hypertension Qualified Code(s): I10 - Essential (primary) hypertension (2) Bradycardia: (3) NSTEMI (non-ST elevated myocardial infarction): (4) Second degree AV block, Mobitz type II: (5) Nonischemic congestive cardiomyopathy: (6) Obesity: Qualifiers: Obesity type: due to excess calories Obesity classification: adult class 3 (BMI >= 40) Serious obesity comorbidity presence: with serious comorbidity Body mass index: BMI 40.0-44.9 Qualified Code(s): E66.01 - Morbid (severe) obesity due to excess calories; Z68.41 - Body mass index [BMI]40.0- 44.9, adult Plan I am not entirely comfortable proceeding with angiography. I do not think the indications are there. He is not having chest pain, there is no elevation in the troponin. I will obtain a Lexiscan sestamibi today. Currently he is hemodynamically stable with a normal blood pressure. At this time I do not believe he needs a temporary wire. Attestations 2 Medical Necessity Statement*: Hospitalization required for heart block needing pacemaker. and Moderate Time for a total of 35 minutes, includes reviewing past or interval history, examining/interviewing patient, placing orders, counseling patient/family/other support, updating patient/family/other support, discussing plan of care with staff, communicating with other healthcare providers, documenting encounter and coordinating care Diagnoses Essential hypertension I10 Hypertension type: essential hypertension Bradycardia R00.1 NSTEMI (non-ST elevated myocardial infarction) I21.4 Second degree AV block, Mobitz type II I44.1 Nonischemic congestive cardiomyopathy I42.0 Class 3 severe obesity due to excess calories with serious comorbidity and body mass index (BMI) of 40.0 to 44.9 in adult E66.01; Z68.41 Obesity type: due to excess calories Obesity classification: adult class 3 (BMI >= 40) Serious obesity comorbidity presence: with serious comorbidity Body mass index: BMI 40.0-44.9
--- NOTE | 2023-11-28 07:33 | ECG_ITS ---
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 Interpretive Statements NAME OF STUDY: LEXISCAN SESTAMIBI STRESS TEST INDICATION: [ASHD] Procedure: At the baseline, the blood pressure was 143/633 mmHg with a heart rate of 34 bpm. The electrocardiogram showed sinus bradycardia with intermittent 2:1 AV block. T wave inversions seen in the inferior and anterolateral leads. The Lexiscan was infused over a period of 20 seconds. A total of 0.4 mg of Lexiscan was infused. The stress phase was continued for a total of 5 minutes. Heart rate was at the end of stress phase was 43 bpm and a blood pressure of 128/63 mmHg. The EKG at the peak infusion revealed sinus braducardia with 2:1 AV block. Sestamibi was injected 20 seconds after the Lexiscan infusion. Blood pressure at the end of recovery phase was 130/62 mmHg with a heart rate of 37 bpm. Conclusion: 1. Normal EKG response to Lexiscan infusion 2. No Lexiscan induced chest pain or cardiac arrhythmia. 3. Patient stayed hemodynamically stable post lexiscan injection 4. Sestamibi/sestamibi perfusion scan pending; see separate report. Electronically Signed On 11-28-2023 11:39:19 CDT by Michael Ng M.D. [id number]
--- NOTE | 2023-11-28 07:34 | NMCV_ITS ---
NM sukhdev perf SPECT r/s* [id number] Fercho Flynn Age: 83 Gender: M : 1940 Exam Date: 11/28/2023 08:11 Ordering Phys: Kota Cueto MD ([email or web address]) Technologist: ABRAHAM Blanco Exam Location: [facility] Indications: CHEST PAIN STRESS TEST Please see separate stress test report in [facility] for full findings IMAGE PROTOCOL Rest/Stress 1 Lexiscan Day Radiopharmaceutical Dose (mCi) Administration Site Administered by Rest: Tc-99m 10.9 IV ABRAHAM Valdes Sestamibi Stress:Tc-99m 33.0 IV ABRAHAM Blanco Sestamidomenico Rest: 28-Nov-2023 60 Discovery 630 Stress: 28-Nov-2023 30 Discovery 630 0.4mg Lexiscan. Supine position only as patient was unable to lay prone. SPECT RESULTS Technical Quality: Excellent Raw Data Analysis: Normal Image Corrections: No attenuation or motion correction applied Summed Stress Score: 11 Summed Rest Score: 9 Summed Difference Score: 3 PERFUSION FINDINGS There is a medium sized area of moderate intensity, mostly fixed perfusion defect in the inferior wall. This is consistent with medium sized area of prior infarct with minimal donya-infarct ischemia seen in the RCA territory. Medium sized area of partially reversible perfusion defect noted in the inferolateral wall. This is consistent with medium sized area of prior infarct with some donya-infarct ischemia in the left circumflex artery territory. FUNCTIONAL RESULTS (calculated via Gated SPECT) Stress Image LV EF (%): 75 Stress EDV (mL):162 TID: 1.03 Stress ESV (mL):41 FUNCTIONAL FINDINGS: There is normal left ventricular systolic function. IMPRESSIONS 1. Abnormal myocardial perfusion imaging with medium sized area of prior infarct with minimal donya-infarct ischemia seen in the RCA territory. 2. Medium sized area of prior infarct with some donya-infarct ischemia (small to medium sized) noted in the left circumflex artery territory. 3. LV systolic function is normal Michael Ng MD (Electronically Signed) Final Date: 28 November 2023 11:28 S
[2023-11-28] MEDS: regadenoson 0.4 Mg/5 ml Syringe 0.400000000000000022 MG IVP (09:12)
[2023-11-28] MEDS: aminophylline 25 mg/mL SDV 10 mL IVP (09:17)
--- NOTE | 2023-11-28 16:12 | P.PN_ITS ---
Subjective 2 Subjective: Patient was seen this morning, he denies any chest pain, no palpitations, he is currently in the stress lab Vitals/I&O/Wt Last Vital Signs Temp 97.8 F 11/28/23 04:00 Pulse 63 11/28/23 14:00 Resp 16 11/28/23 14:00 BP 125/63 11/28/23 14:00 Pulse Ox 93 11/28/23 14:00 O2 Del Method Room Air 11/28/23 13:23 O2 Flow Rate 2 11/28/23 06:00 11/28/23 11/28/23 11/28/23 06:59 14:59 22:59 Intake Total 680 / 680 Output Total 500 / 500 Balance -500 / -250 680 / 680 Weight last 48 hrs Weight 121.064 kg Weight 121.064 kg Weight 122.924 kg Physical Exam 2 Const: COMMON NORMALS: no acute distress and patient oriented x3 Resp: COMMON NORMALS: normal respiratory effort, No retractions, No use of accessory muscles and clear to auscultation bilaterally AUSCULTATION: clear to auscultation bilaterally Cardio: COMMON NORMALS: S1 normal heart sound present and S2 normal heart sound present RATE: bradycardic HEART SOUNDS: S1 normal heart sound present and S2 normal heart sound present GI: COMMON NORMALS: Normal to inspection, nondistended, normoactive bowel sounds present and non-tender Extremity: COMMON NORMALS: no pedal edema Neuro: COMMON NORMALS: patient oriented x3 Psych: COMMON NORMALS: mental status grossly normal Data 11/28/23 03:24 11/28/23 03:24 A&P Assessment and plan (1) Bradycardia: (2) NSTEMI (non-ST elevated myocardial infarction): (3) CAD (coronary artery disease): Qualifiers: Coronary Disease-Associated Artery/Lesion type: [place] artery [place] vs. transplanted heart: wainwright heart Associated angina: without angina Qualified Code(s): I25.10 - Atherosclerotic heart disease of [place] coronary artery without angina pectoris (4) CHF (congestive heart failure): Qualifiers: Heart failure type: combined systolic and diastolic Heart failure chronicity: chronic Qualified Code(s): I50.42 - Chronic combined systolic (congestive) and diastolic (congestive) heart failure (5) HTN (hypertension): Qualifiers: Hypertension type: essential hypertension Qualified Code(s): I10 - Essential (primary) hypertension (6) Fatty liver disease, nonalcoholic: Plan Bradycardia -No history of av ligia blockers, beta tho ? Review of EKG, shows T wave inversions in inferior leads, second-degree AV block type II -Spoke to cardiology, they will consult, plans on possible pacemaker placement -Will monitor patient in ICU -Dopamine if required, atropine pushes as needed -External pacing if required -Undergoing stress testing -Serial EKGs, serial troponins, telemetry monitoring -Cardiac echo -Cardiac cath in 2020 showed 20% stenosis of right coronary artery, -Has asthma, chronic obstructive pulmonary emphysema, prior history of smoking, no current history ? CODE STATUS, patient only wants 1 round of CPR, is okay with elective intubation if required Attestations 2 Medical Necessity Statement*: Patient requires hospitalization for bradycardia, second-degree AV block type II, possibly proceeding to pacemaker placement currently undergoing stress testing Diagnoses Bradycardia R00.1 NSTEMI (non-ST elevated myocardial infarction) I21.4 Coronary artery disease involving wainwright coronary artery of wain[place] heart without angina pectoris I25.10 Coronary Disease-Associated Artery/Lesion type: [place] artery [place] vs. transplanted heart: wainwright heart Associated angina: without angina Chronic combined systolic and diastolic congestive heart failure I50.42 Heart failure type: combined systolic and diastolic Heart failure chronicity: chronic Essential hypertension I10 Hypertension type: essential hypertension Fatty liver disease, nonalcoholic K76.0
[2023-11-28] MEDS: pantoprazole 40 mg SDV IVP (16:27)
--- NOTE | 2023-11-28 16:38 | PC.NURSE ---
Dr. Basilio came to bedside, plan to place pace maker 0700 11/28
--- NOTE | 2023-11-28 17:04 | PM.MISC ---
Miscellaneous Note Note: Patient had a Myocardial perfusion imaging today. He was SMALL AREAS OF REVERSIBLE AND IRREVERSIBLE DEFECTS IN THE INFEROLATERAL REGIONS. Since the area of ischemia small and also the patient is remaining stable with no chest pain, it was thought to be appropriate to go ahead with the permanent pacer implantation in the morning. This was discussed with the patient and family with the implications.. They understood this well and consented to proceed So we will go ahead and schedule the pacemaker procedure in the morning
[2023-11-28] MEDS: atorvastatin 40 mg Tablet 10 MG PO (20:39)
[2023-11-28] MEDS: aspirin 81 mg EC Tablet PO (20:39)
[2023-11-29] VITALS (45 sets, daily range): BP systolic 100–142; BP diastolic 40–100; PULSE 33–84; RESP 10–31; TEMP 36.6–36.8; O2SAT 92–98; BMI 38.2
[2023-11-29 05:23] LABS: Basophils # 0.1 10^3/uL (0.0-0.1); Basophils % 0.8 %; Eosinophils # 0.2 10^3/uL (0.0-0.8); Eosinophils % 3.4 %; Hematocrit 45.4 % (37-53); Lymphocytes # 1.5 10^3/uL (0.8-4.8); Lymphocytes % 23.8 %; Mean Corpuscular HGB Conc 31.9 g/dL (30-55); Mean Corpuscular Hemoglobin 31.3 pg (27-33); Mean Corpuscular Volume 97.8 fl (82-101); Monocytes # 0.6 10^3/uL (0.2-0.9); Monocytes % 9.3 %; Neutrophils # 3.81 10^3/uL (1.8-7.7); Neutrophils % 62.2 %; Nucleated Red Blood Cells % 0 %; Platelet Count 142 10^3/cmm (157-399); Red Blood Count 4.64 10^6/uL (3.85-5.65); Red Cell Distribution Width 13.3 % (12.1-15.1); White Blood Count 6.13 10^3/uL (3.29-11.43)
[2023-11-29 05:48] LABS: Alanine Aminotransferase 24 U/L (0-41); Albumin Level 3.7 g/dL (3.5-5.2); Alkaline Phosphatase 52 U/L (40-130); Anion Gap 14.4 (5-19); Aspartate Amino Transferase 25 U/L (0-40); Blood Urea Nitrogen 27 mg/dL (8-23); Calcium 8.7 mg/dL (8.5-10.5); Carbon Dioxide 24 mmol/L (22-29); Chloride 106 mmol/L (98-107); Creatinine Clr Calc Pharmacy 67.5389; Globulin 2.3 g/dL (1.3-4.6); Glucose 90 mg/dL (65-115); Magnesium 2.2 mg/dL (1.7-2.3); Osmolality Calculated 295 mOsm/kg (285-295); Phosphorus 2.9 mg/dL (2.5-4.5); Potassium 4.4 mmol/L (3.5-5.1); Sodium 140 mmol/L (136-145); Total Bilirubin 0.8 mg/dL (0.15-1.2)
--- NOTE | 2023-11-29 07:22 | W.PM.OPSUD ---
Surgery/Procedure H&P Update DATE OF PROCEDURE: November 29, 2023 DATE H&P PERFORMED: 11/27/23 H&P UPDATE INFORMATION: I have reviewed H&P completed within last 30 days, I have examined patient prior to procedure and No changes to prior documentation PREOP DIAGNOSIS: Symptomatic bradycardia/second-degree type II AV block PRIMARY INDICATION FOR PROCEDURE: Symptomatic bradycardia/second-degree type II AV block PLANNED PROCEDURE: Transvenous temporary pacemaker to the right groin Transvenous permanent pacemaker, dual-chamber, through the left subclavian vein PATIENT REASSESSED PRIOR TO SEDATION, WITH NO CHANGE NOTED: Yes PHYSICAL EXAM: alert, oriented x 3, clear to auscultation bilaterally and regular rate & rhythm AIRWAY EVAL/ANESTHESIA PLAN: normal airway, see other exam findings, ASA III, Monitored Anesthesia, Local Anesthesia, Risks, benefits & alternatives of sedation and/or procedure discussed and Patient agrees to continue as planned
--- NOTE | 2023-11-29 08:05 | PC.NURSE ---
patient off unit with blood and plasma laboratory assistant staff approximately 0700
--- NOTE | 2023-11-29 09:32 | PC.NURSE ---
Patient's belongings taken to [facility] 111-2 at 0930.
--- NOTE | 2023-11-29 09:58 | PC.SOCIAL ---
IMM Update pg 2 of IMM updated and reviewed w/ patient. Copy provided. Copy dated, initialed and placed in chart.
--- NOTE | 2023-11-29 10:45 | P.OP_ITS ---
Operative Report Date of procedure: November 29, 2023 Surgeon: John Basilio MD Procedure: LOCATION: PREOPERATIVE DIAGNOSES: Symptomatic bradycardia/second-degree type II AV block. POSTOPERATIVE DIAGNOSES: Same. COMPLICATIONS: None. ESTIMATED BLOOD LOSS: Around less than 5 milliliters. BRIEF HISTORY: This is a an 83-year-old white male with a history of nonischemic cardiomyopathy, congestive heart failure, high blood pressure, dyslipidemia, COPD and morbid obesity presented with the complaints of dizziness/weakness. He was found to be in second-degree type II AV block with a heart rate in the 30s. For further management of his condition, a permanent pacemaker implantation was recommended. A dual chamber permanent pacemaker implantation was recommended for AV synchrony and symptom relief The procedure was explained to the patient in detail with the risks and benefits. The risks of bleeding, hematoma, vascular injury, infection, pneumothorax, myocardial perforation and other concomitant complications were explained in detail, which the patient understood well and consented to proceed. PROCEDURE DESCRIPTION: The patient was brought to the Cardiac Catheterization Lab. The left and the right side of the neck and the subclavian area were cleaned and draped in a sterile fashion. 1% Xylocaine was used as the local anesthetic agent. Left subclavian venogram was performed by injecting 20 milliliters of Omnipaque through the left antecubital vein. A left subclavian venous access was obtained using a micropuncture needle system, under venographic guidance. . A two-inch long incision was made 2.0 centimeters below the midclavicular region. By sharp and blunt dissection, a pacemaker pocket was made. A 7 [place] venous sheath with dilator was advanced over the guidewire. A second venous access obtained by double barrel technique Over the first guidewire, a 7-[place] venous sheath with dilator was advanced. The venous dilator and the guidewire were taken out. A screw-in ventricular lead was advanced through the venous sheath and was positioned towards the right ventricle. Under fluoroscopic guidance, the ventricular lead was positioned toward the right ventricular apex. Good pacing and sensing thresholds were obtained. The lead was secured to the endocardium by advancing the helix. The stability of the lead was tested by gentle twisting movements and also by asking the patient to take some deep breaths and cough. The venous sheath was peeled off, at this time. The lead was secured to the pectoralis fascia, by suturing with 1-0 Surgilon. Over the second guidewire, another 7-[place] venous sheath with dilator was advanced. The dilator and the guidewire were taken out. Under fluoroscopic guidance, an atrial lead (Medtronic), was advanced and positioned toward the right atrium. The lead was positioned in the right atrial appendage. Good pacing and sensing thresholds were obtained. The lead was secured to the endocardium by advancing the helix. Stability of the lead was tested by gentle twisting movements and also by asking the patient to take some deep breaths and cough. The venous sheath was peeled off, at this time. The lead was secured to the pectoralis fascia by suturing with 0-Surgilon. The pacemaker pocket was copiously irrigated with vancomycin solution. Complete hemostasis was achieved. Sponge counts were confirmed. The leads were attached to a Medtronic generator. The leads were positioned behind the generator and the generator was attached to the pectoralis fascia by suturing with 0-Surgilon. The pocket was closed in layers. Skin was approximated using 4-0 Vicryl. IMPLANTED DEVICES: ATRIAL LEAD: Model number: 5076/52 Serial number: [id number] Make: Medtronic VENTRICULAR LEAD: Model number: 5076/58 Serial number: [id number] Make: Medtronic GENERATOR Brand: Quyen XT DR [facility] Model number: W1 [id number] Serial number: [id number] Make: Medtronic IMPLANTATION DATA: With the pacing system analyzer, the R wave sensing was 5.5 millivolts with a lead impedance of 1254 and a pacing threshold was 0.625 volts at 0.4 milliseconds. In the atrium, the sensing was 4.1 millivolts with a lead impedance of 532 ohms and a pacing threshold was 0.5 volts at 0.4 milliseconds. Through the device, the R-wave sensing was 5 point millivolts with a lead impedance of 1216 and a pacing threshold was 0.75 volts at 0.4 milliseconds. The atrial sensing was 4.8 millivolts with a lead impedance of 551 ohms and a pacing threshold of 0.75 volts at 0.4 milliseconds. The pacemaker was set for DDDR mode with upper rate of 130 and a lower rate of 60. Atrial and ventricular output was 3.5 V. Pulse width of 0.4 ms. Atrial sensitivity 0.3 mV and the ventricular sensitivity of 0.9 mV A pressure dressing was applied over the pacemaker site. The patient was transferred to the Medical Floor in stable condition. A chest x-ray was ordered to confirm the lead position and also to rule out any pneumothorax.
--- NOTE | 2023-11-29 13:03 | PM.PN ---
Subjective Subjective: Patient was seen this morning, after his pacemaker placement, he has no complaints, no chest pain complaints and no lightheadedness, Vitals/I&O/Wt Last Vital Signs Temp 97.8 F 11/29/23 11:41 Pulse 66 11/29/23 11:41 Resp 19 H 11/29/23 11:41 BP 112/71 11/29/23 11:41 Pulse Ox 96 11/29/23 11:41 O2 Del Method Room Air 11/29/23 11:41 O2 Flow Rate 2 11/28/23 06:00 11/28/23 11/29/23 11/29/23 22:59 06:59 14:59 Intake Total 200 / 880 120 / 120 Output Total 1000 / 1000 Balance -800 / -120 120 / 120 Weight last 48 hrs Weight 121.064 kg Weight 121.064 kg Weight 121.064 kg Weight 122.924 kg Physical Exam Const: COMMON NORMALS: no acute distress and patient oriented x3 Resp: COMMON NORMALS: normal respiratory effort, No retractions, No use of accessory muscles and clear to auscultation bilaterally AUSCULTATION: clear to auscultation bilaterally Cardio: COMMON NORMALS: regular rate, regular rhythm, S1 normal heart sound present and S2 normal heart sound present RATE: regular rate RHYTHM: regular rhythm HEART SOUNDS: S1 normal heart sound present and S2 normal heart sound present GI: COMMON NORMALS: Normal to inspection, nondistended, normoactive bowel sounds present and non-tender Extremity: COMMON NORMALS: no pedal edema Neuro: COMMON NORMALS: patient oriented x3 Psych: COMMON NORMALS: mental status grossly normal Data 11/29/23 05:14 11/29/23 05:14 A&P Assessment and plan (1) Bradycardia: (2) NSTEMI (non-ST elevated myocardial infarction): (3) CAD (coronary artery disease): Qualifiers: Coronary Disease-Associated Artery/Lesion type: [place] artery [place] vs. transplanted heart: [place] heart Associated angina: without angina Qualified Code(s): I25.10 - Atherosclerotic heart disease of [place] coronary artery without angina pectoris (4) CHF (congestive heart failure): Qualifiers: Heart failure type: combined systolic and diastolic Heart failure chronicity: chronic Qualified Code(s): I50.42 - Chronic combined systolic (congestive) and diastolic (congestive) heart failure (5) HTN (hypertension): Qualifiers: Hypertension type: essential hypertension Qualified Code(s): I10 - Essential (primary) hypertension (6) Fatty liver disease, nonalcoholic: Plan Bradycardia -No history of av ligia blockers, beta tho ? Review of EKG, shows T wave inversions in inferior leads, second-degree AV block type II -Spoke to cardiology, status post pacemaker placement -cardiac echo CONCLUSIONS Normal left ventricular size and systolic function, EF 63%. Mild concentric left trickle hypertrophy.Grade I/IV diastolic dysfunction (abnormal relaxation filling pattern), normal to mildly elevated filling pressures. Aortic valve sclerosis. There is no pericardial effusion. There are no intracardiac masses. Compared to the previous study from 02/10/2021, there is improvement of the LV ejection fraction -stress test shows IMPRESSIONS 1. Abnormal myocardial perfusion imaging with medium sized area of prior infarct with minimal donya-infarct ischemia seen in the RCA territory. 2. Medium sized area of prior infarct with some donya-infarct ischemia (small to medium sized) noted in the left circumflex artery territory. 3. LV systolic function is normal -Will monitor patient in CSU -Cardiac cath in 2020 showed 20% stenosis of right coronary artery, -Has asthma, chronic obstructive pulmonary emphysema, prior history of smoking, no current history ? CODE STATUS, patient only wants 1 round of CPR, is okay with elective intubation if required Attestations Medical Necessity Statement*: Patient requires hospitalization, for bradycardia status post pacemaker placement Diagnoses Bradycardia R00.1 NSTEMI (non-ST elevated myocardial infarction) I21.4 Coronary artery disease involving [place] coronary artery of [place] heart without angina pectoris I25.10 Coronary Disease-Associated Artery/Lesion type: [place] artery [place] vs. transplanted heart: [place] heart Associated angina: without angina Chronic combined systolic and diastolic congestive heart failure I50.42 Heart failure type: combined systolic and diastolic Heart failure chronicity: chronic Essential hypertension I10 Hypertension type: essential hypertension Fatty liver disease, nonalcoholic K76.0
--- NOTE | 2023-11-29 13:27 | XRR_ITS ---
PROCEDURE INFORMATION: Exam: XR Chest Exam date and time: 11/29/2023 12:49 PM Age: 83 years old Clinical indication: Device placement; Cardiac pacemaker placement or adjustment; Additional info: S/P pacemaker insertion TECHNIQUE: Imaging protocol: Radiologic exam of the chest. Views: 1 view. COMPARISON: CR XR chest 1V portable [id number] 11/27/2023 1:51 PM FINDINGS: Tubes, catheters and devices: Multilead pacemaker/defibrillator. Lungs: Mild chronic interstitial prominence. Pleural spaces: Unremarkable. No pleural effusion. No pneumothorax. Heart/Mediastinum: See Vasculature finding. Vasculature: Moderate cardiomegaly and uncoiling of the thoracic aorta each accentuated by the AP positioning. Bones/joints: Unremarkable. Other findings: Tiny scattered calcified granulomata. XR/XR chest 1V portable [id number] IMPRESSION: 1. No acute cardiopulmonary disease. 2. Prior granulomatous disease.
[2023-11-29] MEDS: acetaminophen 325 mg Tablet 650 MG PO (13:59)
[2023-11-29] MEDS: ceFAZolin 3,000 MG in sodium chloride 0.9% (plus) 100 ML 200 MG IV ×2 (15:39→22:47)
[2023-11-29] MEDS: sodium chloride 0.9% 1,000 ML 50 ML IV (15:40)
[2023-11-29] MEDS: pantoprazole 40 mg SDV IVP (15:41)
[2023-11-29] MEDS: atorvastatin 40 mg Tablet 10 MG PO (20:39)
[2023-11-29] MEDS: aspirin 81 mg EC Tablet PO (20:39)
[2023-11-29] MEDS: sodium chloride 0.9% 1,000 ML 75 ML IV (22:48)
[2023-11-30] VITALS (13 sets, daily range): BP systolic 116–152; BP diastolic 71–82; PULSE 63–100; RESP 16–32; TEMP 36.8–37.3; O2SAT 92–98
[2023-11-30 03:55] LABS: Basophils % 0.4 %; Eosinophils # 0.2 10^3/uL (0.0-0.8); Eosinophils % 1.9 %; Hematocrit 44.4 % (37-53); Lymphocytes # 0.9 10^3/uL (0.8-4.8); Lymphocytes % 11.2 %; Mean Corpuscular HGB Conc 31.5 g/dL (30-55); Mean Corpuscular Hemoglobin 31.6 pg (27-33); Mean Corpuscular Volume 100.2 fl (82-101); Mean Platelet Volume 11.3 fL (7.4-10.4); Monocytes # 0.8 10^3/uL (0.2-0.9); Monocytes % 10.1 %; Neutrophils # 5.87 10^3/uL (1.8-7.7); Neutrophils % 76.1 %; Nucleated Red Blood Cells % 0 %; Platelet Count 150 10^3/cmm (157-399); Red Blood Count 4.43 10^6/uL (3.85-5.65); Red Cell Distribution Width 13.5 % (12.1-15.1); White Blood Count 7.71 10^3/uL (3.29-11.43)
[2023-11-30 04:35] LABS: Alanine Aminotransferase 20 U/L (0-41); Albumin Level 3.8 g/dL (3.5-5.2); Alkaline Phosphatase 54 U/L (40-130); Anion Gap 14.2 (5-19); Aspartate Amino Transferase 25 U/L (0-40); Blood Urea Nitrogen 20 mg/dL (8-23); Calcium 8.5 mg/dL (8.5-10.5); Carbon Dioxide 22 mmol/L (22-29); Chloride 108 mmol/L (98-107); Creatinine Clr Calc Pharmacy 67.5389; Glucose 93 mg/dL (65-115); Osmolality Calculated 292 mOsm/kg (285-295); Phosphorus 2.8 mg/dL (2.5-4.5); Potassium 4.2 mmol/L (3.5-5.1); Sodium 140 mmol/L (136-145); Total Bilirubin 0.7 mg/dL (0.15-1.2); Total Protein 5.8 g/dL (6.6-8.7)
[2023-11-30] MEDS: ceFAZolin 3,000 MG in sodium chloride 0.9% (plus) 100 ML 200 MG IV (06:26)
--- NOTE | 2023-11-30 08:00 | PC.NURSE ---
Transfer pt assisted moderately to get up in bed. pt started pain on his chest and neck and shoulder. assisted pt to sit up and then transfer to chair with moderate assistance. doctor corrie is aware and orders are put in.
--- NOTE | 2023-11-30 09:08 | XRR_ITS ---
PROCEDURE INFORMATION: Exam: XR Chest Exam date and time: 11/30/2023 8:38 AM Age: 83 years old Clinical indication: Shortness of breath; Prior surgery; Surgery date: 3-7 days post-operative; Surgery type: Pacemaker; Additional info: SOB TECHNIQUE: Imaging protocol: Radiologic exam of the chest. Views: 1 view. COMPARISON: CR XR chest 1V portable [id number] 11/29/2023 12:49 PM FINDINGS: Tubes, catheters and devices: Multi lead left chest wall pacemaker. Lungs: Fibrotic changes of bilateral lung apices. Multiple innumerable tiny pulmonary nodules, similar to prior study. Atelectatic changes in the left lung base. Pleural spaces: Unremarkable. No pleural effusion. No pneumothorax. Heart/Mediastinum: Unremarkable. No cardiomegaly. Bones/joints: Reverse total right shoulder arthroplasty. Mild degenerative disease of bilateral acromioclavicular joints. XR/XR chest 1V portable [id number] IMPRESSION: No acute cardiopulmonary process.
--- NOTE | 2023-11-30 09:08 | ECG_ITS ---
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 Measurements Intervals [place] Rate: 86 P: 24 SD: 178 QRS: -63 QRSD: 205 T: 95 QT: 452 QTc: 542 Interpretive Statements ELECTRONIC VENTRICULAR PACEMAKER-A sensed V paced rhythm ABNORMAL RHYTHM ECG Compared to ECG 11/27/2023 21:44:46 Sinus bradycardia no longer present First degree AV block no longer present Right bundle-branch block no longer present Myocardial infarct finding no longer present T-wave abnormality no longer present Possible ischemia no longer present Electronically Signed On 12-01-2023 21:30:55 CDT by John Basilio M.D. [id number]
[2023-11-30 10:00] LABS: NT Pro B Type Natriuretic Pept 145 pg/mL (0-450)
[2023-11-30] MEDS: FUROsemide 10 mg/mL SDV 4mL 40 MG IVP (10:02)
[2023-11-30] MEDS: potassium chloride ER 20 mEq Tablet PO (10:02)
[2023-11-30] MEDS: morphine 4 mg/mL SDV 1 mL 1 MG IVP (10:03)
[2023-11-30 10:27] LABS: Troponin(5th) Baseline 56 ng/L (0-15)
--- NOTE | 2023-11-30 10:35 | USCV_ITS ---
Fercho Flynn Age: 83 Gender: M : 1940 Exam Date: 11/30/2023 13:35 Ordering Phys: John Basilio MD ([email or web address]) Technologist: Tawanda Silva Exam Location: [facility] [place] Indication: chest pain BP: 143 / 73 HR: Rhythm: Sinus Technical Quality: Adequate MEASUREMENTS (Male / Female) Normal Values 2D ECHO LVOT Diameter 2.2 cm LA Diameter 4.3 cm RA Systolic Volume 4C AL 39.1 ml RA Systolic Volume 4C MOD 39.2 ml Aorta at Sinotubular Diameter 3.5 cm M-MODE LA Ao Ratio MM 1.3 AV Cusp Separation MM 1.9 cm FINDINGS Left Ventricle Concentric left-ventricular hypertrophy with normal ejection fraction.abnormal septal motion consistent with conduction abnormality. Right Ventricle Normal RV size and ejection fraction. Right Atrium Possibly of normal size Left Atrium Possibly of normal size Mitral Valve No gross abnormalities noted Aortic Valve No gross abnormalities noted Tricuspid Valve No gross abnormalities noted Pulmonic Valve Pulmonic valve not well visualized. Pericardium Small echo-free space anteriorly suggesting small pericardial effusion Aorta Normal aortic annulus size. IVC Inferior vena cava not visualized. CONCLUSIONS Normal LV size ejection fraction. of 60%. Septal motion consistent with conduction abnormality. Mild concentric significant hypertrophy. Pacemaker wire in the right atrial right ventricle Possible small pericardial effusion, essentially unchanged compared to the study from 11/27/2023 Dr John Basilio MD FAC (Electronically Signed) Final Date: 30 November 2023 17:56 S
--- NOTE | 2023-11-30 11:09 | ECG_ITS ---
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 Measurements Intervals [place] Rate: 94 P: 15 UT: 180 QRS: -66 QRSD: 195 T: 92 QT: 434 QTc: 545 Interpretive Statements ELECTRONIC VENTRICULAR PACEMAKER A sensed V- sensed ABNORMAL RHYTHM ECG Compared to ECG 11/30/2023 09:51:09 No significant changes Electronically Signed On 12-01-2023 21:46:19 CDT by John Basilio M.D. [email or web address]
--- NOTE | 2023-11-30 12:43 | P.PN_ITS ---
Subjective 2 Subjective: Patient status post permanent dual-chamber pacemaker implantation yesterday. He seems to have good sensing and pacing function. Complaining of pain in the upper substernal area radiate to the back and to the neck. Has a history of cervical spine disease. Seems to be getting worse with respiratory movements. No shortness of breath, fever or chills. Medications: Medication Review Details: Current Medications Acetaminophen (Acetaminophen 325 Mg Tablet) 650 mg PO Q6H PRN PRN Reason: Mild/Mod Pain Or Temp >/= 101 Last Admin: 11/29/23 13:59 Dose: 650 mg Albuterol/Ipratropium (Ipratropium-Albuterol 3 Ml Neb) 3 ml INHALATION Q4H PRN PRN Reason: SHORTNESS OF BREATH Aspirin (Aspirin 81 Mg Ec Tablet) 81 mg PO BEDTIME [facility] Last Admin: 11/29/23 20:39 Dose: 81 mg Atorvastatin Calcium (Atorvastatin 40 Mg Tablet) 10 mg PO BEDTIME [facility] Last Admin: 11/29/23 20:39 Dose: 10 mg Atropine Sulfate (Atropine 0.1 Mg/Ml Syr 10 Ml) 0.5 mg IVP Q5MIN PRN PRN Reason: for hr<60 and hypotension and symptomatic Enoxaparin Sodium (Enoxaparin 40 Mg/0.4 Ml Syringe) 40 mg SUBCUT Q24H [facility] Morphine Sulfate (Morphine 4 Mg/Ml Sdv 1 Ml) 1 mg IVP Q4H PRN PRN Reason: SEVERE PAIN Last Admin: 11/30/23 10:03 Dose: 1 mg Ondansetron HCl (Ondansetron 2 Mg/Ml Sdv 2 Ml) 4 mg IVP Q6H PRN PRN Reason: NAUSEA AND VOMITING Ondansetron HCl (Ondansetron 2 Mg/Ml Sdv 2 Ml) 4 mg IVP Q2M PRN PRN Reason: NAUSEA Pantoprazole Sodium (Pantoprazole 40 Mg Sdv) 40 mg IVP Q24H [facility] Last Admin: 11/29/23 15:41 Dose: 40 mg Vitals/I&O/Wt Last Vital Signs Temp 99.0 F 11/30/23 07:58 Pulse 89 11/30/23 10:27 Resp 31 H 11/30/23 10:03 BP 152/73 11/30/23 07:58 Pulse Ox 94 11/30/23 10:03 O2 Del Method Room Air 03/16/24 09:58 O2 Flow Rate 2 11/28/23 06:00 11/29/23 11/30/23 11/30/23 22:59 06:59 14:59 Intake Total 322 / 442 100 / 542 988.5 / 988.5 Output Total 400 / 400 Balance 322 / 142 100 / 242 588.5 / 588.5 Weight last 48 hrs Weight 272 lb Weight 266 lb 14.4 oz Physical Exam 2 Narrative: GENERAL: The patient is alert and oriented times three. Not in any acute distress. Obese. Hard of hearing. HEENT: No significant pallor, icterus or lymphadenopathy.Oral cavity: There are no mucous membrane lesions. NECK: Trachea appears to be central. No masses noted. No JVD or thyromegaly appreciated. RESPIRATORY: The pacemaker site appears to have no hematoma or bleeding. No intercostals muscle retraction or any accessory muscle activation. There is no chest wall tenderness. Breath sounds are heard bilaterally. No rales or rhonchi heard. No evidence of any consolidation. BREASTS: Deferred. HEART: The heart sounds are normal. No S3 or S4. No significant murmurs. No pericardial rub ABDOMEN: No vessel pulsations or distention. No tenderness. No organomegaly appreciated. Bowel sounds are normally heard. : Deferred. RECTAL: Deferred. LYMPHATIC: No lymphadenopathy noted in the neck. EXTREMITIES: No edema or cyanosis. No clubbing. MUSCULOSKELETAL: No acute joint deformities or swelling SKIN: There are no significant rashes or ecchymosis NEUROPSYCHIATRIC: The patient is alert and oriented x3. Appears to be in a good mood. No tremors or rigidity noted. Data 11/30/23 03:14 11/30/23 03:14 Other Labs: Laboratory Last Values WBC 7.71 10^3/uL (3.29-11.43) 11/30/23 03:14 RBC 4.43 10^6/uL (3.85-5.65) 11/30/23 03:14 Hgb 14.00 g/dL (11.27-16.99) 11/30/23 03:14 Hct 44.4 % (37-53) 11/30/23 03:14 MCV 100.2 fl (82-101) 11/30/23 03:14 MCH 31.6 pg (27-33) 11/30/23 03:14 MCHC 31.5 g/dL (30-55) 11/30/23 03:14 RDW 13.5 % (12.1-15.1) 11/30/23 03:14 Plt Count 150 10^3/cmm (157-399) L 11/30/23 03:14 MPV 11.3 fL (7.4-10.4) H 11/30/23 03:14 Neut % (Auto) 76.1 % 11/30/23 03:14 Lymph % (Auto) 11.2 % 11/30/23 03:14 [place] % (Auto) 10.1 % 11/30/23 03:14 Eos % (Auto) 1.9 % 11/30/23 03:14 Baso % (Auto) 0.4 % 11/30/23 03:14 Neut # (Auto) 5.87 10^3/uL (1.8-7.7) 11/30/23 03:14 Lymph # (Auto) 0.9 10^3/uL (0.8-4.8) 11/30/23 03:14 [place] # (Auto) 0.8 10^3/uL (0.2-0.9) 11/30/23 03:14 Eos # (Auto) 0.2 10^3/uL (0.0-0.8) 11/30/23 03:14 Baso # (Auto) 0.0 10^3/uL (0.0-0.1) 11/30/23 03:14 Nucleated RBC % (auto) 0 % 11/30/23 03:14 Nucleated RBCs # 0.0 /100WBC 11/30/23 03:14 ESR 5 mm/hr (0-10) 11/27/23 13:36 PT 14.00 SECONDS (12.1-14.9) 11/27/23 13:36 INR 1.04 (0.8-1.2) 11/27/23 13:36 Sodium 140 mmol/L (136-145) 11/30/23 03:14 Potassium 4.2 mmol/L (3.5-5.1) 11/30/23 03:14 Chloride 108 mmol/L (98-107) H 11/30/23 03:14 Carbon Dioxide 22 mmol/L (22-29) 11/30/23 03:14 Anion Gap 14.2 (5-19) 11/30/23 03:14 BUN 20 mg/dL (8-23) 11/30/23 03:14 Creatinine 1.1 mg/dL (0.7-1.2) 11/30/23 03:14 GFR Calculation Not Reportable 11/30/23 03:14 Glucose 93 mg/dL (65-115) 11/30/23 03:14 Estimat Average Glucose 126 11/27/23 13:36 Hemoglobin A1c 6.0 % (4.0-6.0) 11/27/23 13:36 Calculated Osmolality 292 mOsm/kg (285-295) 11/30/23 03:14 Lactic Acid 1.5 mmol/L (0.5-2.2) 11/27/23 13:36 Calcium 8.5 mg/dL (8.5-10.5) 11/30/23 03:14 Phosphorus 2.8 mg/dL (2.5-4.5) 11/30/23 03:14 Magnesium 2.0 mg/dL (1.7-2.3) 11/30/23 03:14 Total Bilirubin 0.7 mg/dL (0.15-1.2) 11/30/23 03:14 AST 25 U/L (0-40) 11/30/23 03:14 ALT 20 U/L (0-41) 11/30/23 03:14 Alkaline Phosphatase 54 U/L (40-130) 11/30/23 03:14 Troponin T Baseline 56 ng/L (0-15) H 11/30/23 09:47 Troponin T 120 Minute 60.80 ng/L (0-15) H 11/30/23 11:58 Delta Troponin T 4.80 ABS# (0-10) 11/30/23 11:58 Troponin T Hi Sens 6Hr 29.20 ng/L (0-15) H 11/27/23 19:36 Troponin T Hi Sens 6Hr Delta -10.80 ng/L (0-12) L 11/27/23 19:36 C-Reactive Protein 3.0 mg/L (0.0-4.9) 11/27/23 13:36 NT-Pro-B Natriuret Pep 145 pg/mL (0-450) 11/30/23 03:14 Total Protein 5.8 g/dL (6.6-8.7) L 11/30/23 03:14 Albumin 3.8 g/dL (3.5-5.2) 11/30/23 03:14 Globulin 2.0 g/dL (1.3-4.6) 11/30/23 03:14 Triglycerides 132 mg/dL (0-150) 11/27/23 13:36 Cholesterol 146 mg/dL (0-200) 11/27/23 13:36 LDL Cholesterol, Calc 64 mg/dL (50-129) 11/27/23 13:36 HDL Cholesterol 56 mg/dL (60-100) L 11/27/23 13:36 LDL/HDL Ratio 1.14 RATIO (0.00-3.22) 11/27/23 13:36 Cholesterol/HDL Ratio 2.61 mg/dL (1.0-5.00) 11/27/23 13:36 Procalcitonin 0.15 ng/mL (0-0.5) 11/27/23 13:36 TSH 1.52 uIU/mL (0.27-4.20) 11/27/23 13:36 TSH 1.52 uIU/mL (0.27-4.20) 11/27/23 13:36 Urine Color Yellow (Yellow) 11/28/23 05:30 Urine Appearance Clear (CLEAR) 11/28/23 05:30 Urine pH 6 (5-7) 11/28/23 05:30 Ur Specific [place] 1.015 (1.005-1.030) 11/28/23 05:30 Urine Protein Neg (Negative) 11/28/23 05:30 Urine Glucose (UA) Norm (Normal) 11/28/23 05:30 Urine Ketones Negative (Negative) 11/28/23 05:30 Urine Blood Neg (Negative) 11/28/23 05:30 Urine Nitrate Negative (Negative) 11/28/23 05:30 Urine Bilirubin Neg (Negative) 11/28/23 05:30 Urine Urobilinogen Neg mg/dL (Negative) 11/28/23 05:30 Ur Leukocyte Esterase Negative (Negative) 11/28/23 05:30 Urine Opiates Screen Negative ng/mL (Negative) 11/28/23 05:30 Ur Barbiturates Screen Negative ng/mL (Negative) 11/28/23 05:30 Ur Phencyclidine Scrn Negative ng/mL (Negative) 11/28/23 05:30 Ur Amphetamines Screen Negative ng/mL (Negative) 11/28/23 05:30 U Benzodiazepines Scrn Negative ng/mL (Negative) 11/28/23 05:30 Urine Cocaine Screen Negative ng/mL (Negative) 11/28/23 05:30 U Marijuana (THC) Screen Negative ng/mL (Negative) 11/28/23 05:30 Ethyl Alcohol < 10 mg/dL (0-10) 11/27/23 13:36 A&P Assessment and plan (1) Bradycardia: Status post permanent pacer implantation. 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 Currently the LV ejection fraction appears to be within normal limits, based on the echocardiogram. (3) HTN (hypertension): Currently normotensive. Qualifiers: Hypertension type: essential hypertension Qualified Code(s): I10 - Essential (primary) hypertension (4) CAD (coronary artery disease): Mild CAD by angiogram as mentioned above. Had a Myocardial perfusion imaging which revealed mostly areas of fixed defects with small areas of reversible defects in the inferolateral region. Since he was remaining stable with no significant chest pain, it was decided to go ahead with the permanent pacemaker insertion. Qualifiers: Associated angina: without angina Coronary Disease-Associated Artery/Lesion type: [place] artery [place] vs. transplanted heart: [place] heart Qualified Code(s): I25.10 - Atherosclerotic heart disease of [place] coronary artery without angina pectoris Plan I may do a limited 2D echocardiogram to rule out any pericardial effusion. His chest x-ray is unremarkable. Most likely his symptoms are musculoskeletal. Continue the IV antibiotics as prescribed. Addendum : the echocardiogram revealed no significant pericardial effusion. Essentially unchanged from the previous study. Attestations 2 Medical Necessity Statement*: Disposition as per the primary Coding Level of Care Code Acute Code for [facility] Fwd Diagnoses Bradycardia R00.1 Nonischemic congestive cardiomyopathy I42.0 Essential hypertension I10 Hypertension type: essential hypertension Coronary artery disease involving [place] coronary artery of [place] heart without angina pectoris I25.10 Associated angina: without angina Coronary Disease-Associated Artery/Lesion type: [place] artery [place] vs. transplanted heart: [place]ig heart
[2023-11-30] MEDS: acetaminophen 325 mg Tablet 650 MG PO (14:36)
--- NOTE | 2023-11-30 14:37 | XRR_ITS ---
PROCEDURE INFORMATION: Exam: XR Left Shoulder Exam date and time: 11/30/2023 6:01 PM Age: 83 years old Clinical indication: Prior surgery; Surgery date: 6+ months; Surgery type: Pacemaker x 1 day ago; RT shoulder replacement x 6yr ago; Patient HX: Bilateral shoulder pain; Pacemaker insertion yesterday; RT shoulder replacement 2016 TECHNIQUE: Imaging protocol: Radiologic exam of the left shoulder. Views: 2 or more views. COMPARISON: CR XR chest 1V portable [id number] 11/30/2023 8:38 AM FINDINGS: Bones/joints: There is osseous irregularity of the greater tuberosity suggestive of sequela of remote trauma. The glenohumeral articulation is grossly intact with moderate osteoarthritis. There is severe narrowing of the acromial humeral interval suggestive of rotator cuff pathology. The acromioclavicular articulation is grossly intact with moderate-severe osteoarthritis. Soft tissues: No gross soft tissue abnormality. Left subclavian approach pacemaker partially visualized. XR/XR shoulder LT min 2V* [id number] IMPRESSION: 1. 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 2. Osseous irregularity of the greater tuberosity suggestive of sequela of remote trauma.
--- NOTE | 2023-11-30 14:37 | XRR_ITS ---
PROCEDURE INFORMATION: Exam: XR Right Shoulder Exam date and time: 11/30/2023 5:55 PM Age: 83 years old Clinical indication: Prior surgery; Surgery date: 1-6 months; Surgery type: Pacemaker x 1 day ago; RT shoulder replacement x 6yr ago; Patient HX: Bilateral shoulder pain; Pacemaker insertion yesterday; RT shoulder replacement 2016 TECHNIQUE: Imaging protocol: Radiologic exam of the right shoulder. Views: 2 or more views. COMPARISON: CR XR chest 1V portable [id number] 11/30/2023 8:38 AM FINDINGS: Bones/joints: Total reverse right shoulder arthroplasty without evidence of hardware loosening or periprosthetic fracture. Severe AC joint osteoarthritis without evidence of fracture or subluxation. Soft tissues: No gross soft tissue abnormality. Partially visualized pacer leads. XR/XR shoulder RT min 2V* [id number] IMPRESSION: 1. Total reverse right shoulder arthroplasty without evidence of hardware loosening or periprosthetic fracture.
--- NOTE | 2023-11-30 14:57 | PC.NURSE ---
Transfer pt assisted in transferring from bed to chair with moderate assistance due to pain and left shoulder activity restriction.
--- NOTE | 2023-11-30 15:08 | ECG_ITS ---
[facility] Test Date: 2023-11-30 Pat Name: Fercho Flynn Department: Room: 111 Gender: Male Leader Writer: : 1940 Requested By: Sheng Kendall Order Number: [id number] Dhruv MD: John Basilio M.D. Measurements Intervals [place] Rate: 97 P: 19 PA: 167 QRS: -63 QRSD: 193 T: 88 QT: 427 QTc: 544 Interpretive Statements ELECTRONIC VENTRICULAR PACEMAKER ABNORMAL RHYTHM ECG Compared to ECG 11/30/2023 11:09:57 No significant changes Electronically Signed On 12-01-2023 21:46:48 CDT by John Basilio M.D. [email or web address] Holdingsfranklin county memorial hospitalQBInternationalmetrohealth main campus medical centerAttune RTD/store/OM/[id number]
--- NOTE | 2023-11-30 15:13 | P.PN_ITS ---
Subjective 2 Subjective: Patient was seen this morning, he complains of severe shoulder discomfort, he is sitting up in a chair, he also complains of shortness of breath and chest discomfort, he is worried about going home given his chest pain with taking a deep breath Vitals/I&O/Wt Last Vital Signs Temp 99.0 F 11/30/23 07:58 Pulse 100 11/30/23 13:19 Resp 27 H 11/30/23 13:19 BP 143/73 11/30/23 13:19 Pulse Ox 95 11/30/23 13:19 O2 Del Method Room Air 11/30/23 09:58 O2 Flow Rate 2 11/28/23 06:00 11/30/23 11/30/23 11/30/23 06:59 14:59 22:59 Intake Total 100 / 542 1106.5 / 1106.5 Output Total 400 / 400 Balance 100 / 242 706.5 / 706.5 Weight last 48 hrs Weight 123.377 kg Weight 121.064 kg Physical Exam 2 Const: COMMON NORMALS: no acute distress and patient oriented x3 Resp: COMMON NORMALS: normal respiratory effort, No retractions, No use of accessory muscles and clear to auscultation bilaterally AUSCULTATION: clear to auscultation bilaterally Cardio: COMMON NORMALS: regular rate, regular rhythm, S1 normal heart sound present and S2 normal heart sound present RATE: regular rate RHYTHM: r egular rhythm HEART SOUNDS: S1 normal heart sound present and S2 normal heart sound present GI: COMMON NORMALS: Normal to inspection, nondistended, normoactive bowel sounds present and non-tender Extremity: COMMON NORMALS: no pedal edema Neuro: COMMON NORMALS: patient oriented x3 Psych: COMMON NORMALS: mental status grossly normal Data 11/30/23 03:14 11/30/23 03:14 A&P Assessment and plan (1) Bradycardia: (2) NSTEMI (non-ST elevated myocardial infarction): (3) CAD (coronary artery disease): Qualifiers: Coronary Disease-Associated Artery/Lesion type: [place] artery [place] vs. transplanted heart: [place] heart Associated angina: without angina Qualified Code(s): I25.10 - Atherosclerotic heart disease of [place] coronary artery without angina pectoris (4) CHF (congestive heart failure): Qualifiers: Heart failure type: combined systolic and diastolic Heart failure chronicity: chronic Qualified Code(s): I50.42 - Chronic combined systolic (congestive) and diastolic (congestive) heart failure (5) HTN (hypertension): Qualifiers: Hypertension type: essential hypertension Qualified Code(s): I10 - Essential (primary) hypertension (6) Fatty liver disease, nonalcoholic: Plan Bradycardia -No history of av ligia blockers, beta tho ? Review of EKG, shows T wave inversions in inferior leads, second-degree AV block type II, -Spoke to cardiology, status post pacemaker placement -cardiac echo CONCLUSIONS Normal left ventricular size and systolic function, EF 63%. Mild concentric left trickle hypertrophy.Grade I/IV diastolic dysfunction (abnormal relaxation filling pattern), normal to mildly elevated filling pressures. Aortic valve sclerosis. There is no pericardial effusion. There are no intracardiac masses. Compared to the previous study from 02/10/2021, there is improvement of the LV ejection fraction -stress test shows IMPRESSIONS 1. Abnormal myocardial perfusion imaging with medium sized area of prior infarct with minimal donya-infarct ischemia seen in the RCA territory. 2. Medium sized area of prior infarct with some [place]ya-infarct ischemia (small to medium sized) noted in the left circumflex artery territory. 3. LV systolic function is normal -Will monitor patient in [facility] -Cardiac cath in 2020 showed 20% stenosis of right coronary artery, -Has asthma, chronic obstructive pulmonary emphysema, prior history of smoking, no current history ? CODE STATUS, patient only wants 1 round of CPR, is okay with elective intubation if required Plan for today as he continues to complain of chest discomfort, will do troponin series, chest x-ray, he complains of shortness of breath we will give him 1 dose of IV Lasix, follow troponin series, EKG, will consider NSAIDs based on clinical progress, continue morphine x-ray of bilateral shoulders Attestations 2 Medical Necessity Statement*: Patient requires hospitalization for chest pain, shortness of breath Diagnoses Bradycardia R00.1 NSTEMI (non-ST elevated myocardial infarction) I21.4 Coronary artery disease involving [place] coronary artery of [place] heart without angina pectoris I25.10 Coronary Disease-Associated Artery/Lesion type: [place] artery [place] vs. transplanted heart: [place] heart Associated angina: without angina Chronic combined systolic and diastolic congestive heart failure I50.42 Heart failure type: combined systolic and diastolic Heart failure chronicity: chronic Essential hypertension I10 Hypertension type: essential hypertension Fatty liver disease, nonalcoholic K76.0
[2023-11-30] MEDS: pantoprazole 40 mg SDV IVP (16:01)
[2023-11-30 16:52] LABS: Troponin 5 6HR 62.56 ng/L (0-15); Troponin 5 6HR Delta 6.56 ng/L (0-12)
[2023-11-30] MEDS: naproxen 500 mg Tablet 250 MG PO (17:34)
[2023-11-30] MEDS: cephALEXin 500 mg Capsule PO ×2 (17:34→21:24)
[2023-11-30] MEDS: enoxaparin 40 mg/0.4 mL Syringe SUBCUT (17:36)
[2023-11-30] MEDS: metoprolol tartrate 25 mg Tablet PO (19:02)
[2023-11-30 19:50] LABS: Troponin T (5th) Once 59 ng/L (0-15)
[2023-11-30] MEDS: atorvastatin 40 mg Tablet 10 MG PO (21:23)
[2023-11-30] MEDS: aspirin 81 mg EC Tablet PO (21:24)
[2023-12-01] VITALS (10 sets, daily range): BP systolic 117–137; BP diastolic 67–74; PULSE 62–72; RESP 17–23; TEMP 36.7–37; O2SAT 94–95
[2023-12-01 04:37] LABS: Basophils % 0.2 %; Eosinophils # 0.1 10^3/uL (0.0-0.8); Eosinophils % 0.5 %; Hematocrit 43.5 % (37-53); Lymphocytes # 0.9 10^3/uL (0.8-4.8); Lymphocytes % 9.3 %; Mean Corpuscular HGB Conc 32.4 g/dL (30-55); Mean Corpuscular Volume 95.6 fl (82-101); Mean Platelet Volume 11.5 fL (7.4-10.4); Monocytes # 1.2 10^3/uL (0.2-0.9); Monocytes % 12.8 %; Neutrophils # 7.39 10^3/uL (1.8-7.7); Neutrophils % 76.8 %; Nucleated Red Blood Cells % 0 %; Platelet Count 149 10^3/cmm (157-399); Red Blood Count 4.55 10^6/uL (3.85-5.65); Red Cell Distribution Width 13.4 % (12.1-15.1); White Blood Count 9.63 10^3/uL (3.29-11.43)
[2023-12-01 05:01] LABS: Alanine Aminotransferase 12 U/L (0-41); Alkaline Phosphatase 57 U/L (40-130); Anion Gap 13.3 (5-19); Aspartate Amino Transferase 20 U/L (0-40); Blood Urea Nitrogen 24 mg/dL (8-23); Calcium 9.4 mg/dL (8.5-10.5); Carbon Dioxide 26 mmol/L (22-29); Chloride 103 mmol/L (98-107); Creatinine Clr Calc Pharmacy 57.7216; Globulin 2.5 g/dL (1.3-4.6); Glucose 126 mg/dL (65-115); Magnesium 2.1 mg/dL (1.7-2.3); Osmolality Calculated 292 mOsm/kg (285-295); Phosphorus 2.3 mg/dL (2.5-4.5); Potassium 4.3 mmol/L (3.5-5.1); Sodium 138 mmol/L (136-145); Total Bilirubin 1.1 mg/dL (0.15-1.2); Total Protein 6.5 g/dL (6.6-8.7)
[2023-12-01] MEDS: naproxen 500 mg Tablet 250 MG PO (08:58)
[2023-12-01] MEDS: multivitamin therapeutic Tablet 1 TAB PO (08:58)
[2023-12-01] MEDS: cephALEXin 500 mg Capsule PO ×2 (08:59→12:35)
[2023-12-01] MEDS: metoprolol tartrate 25 mg Tablet PO (08:59)
--- NOTE | 2023-12-01 09:45 | P.PN_ITS ---
Subjective 2 Subjective: Patient is feeling much better. He has been ambulating on telemetry. Has some dyspnea on exertion. No orthopnea PND. Repeat echocardiogram is unremarkable. Medications: Medication Review Details: Current Medications Acetaminophen (Acetaminophen 325 Mg Tablet) 650 mg PO Q6H PRN PRN Reason: Mild/Mod Pain Or Temp >/= 101 Last Admin: 11/30/23 14:36 Dose: 650 mg Albuterol/Ipratropium (Ipratropium-Albuterol 3 Ml Neb) 3 ml INHALATION Q4H PRN PRN Reason: SHORTNESS OF BREATH Aspirin (Aspirin 81 Mg Ec Tablet) 81 mg PO BEDTIME [facility] Last Admin: 11/30/23 21:24 Dose: 81 mg Atorvastatin Calcium (Atorvastatin 40 Mg Tablet) 10 mg PO BEDTIME [facility] Last Admin: 11/30/23 21:23 Dose: 10 mg Atropine Sulfate (Atropine 0.1 Mg/Ml Syr 10 Ml) 0.5 mg IVP Q5MIN PRN PRN Reason: for hr<60 and hypotension and symptomatic Cephalexin HCl (Cephalexin 500 Mg Capsule) 500 mg PO QID [facility]; Protocol Last Admin: 12/01/23 08:59 Dose: 500 mg Enoxaparin Sodium (Enoxaparin 40 Mg/0.4 Ml Syringe) 40 mg SUBCUT Q24H [facility] Last Admin: 11/30/23 17:36 Dose: 40 mg Metoprolol Tartrate (Metoprolol Tartrate 25 Mg Tablet) 25 mg PO BID@0900,2100 [facility] Last Admin: 12/01/23 08:59 Dose: 25 mg Morphine Sulfate (Morphine 4 Mg/Ml Sdv 1 Ml) 1 mg IVP Q4H PRN PRN Reason: SEVERE PAIN Last Admin: 11/30/23 10:03 Dose: 1 mg Multivitamins Therapeutic (Multivitamin Therapeutic Tablet) 1 tab PO DAILY [facility] Last Admin: 12/01/23 08:58 Dose: 1 tab Naproxen (Naproxen 500 Mg Tablet) 250 mg PO Q12H PRN PRN Reason: PAIN Last Admin: 12/01/23 08:58 Dose: 250 mg Ondansetron HCl (Ondansetron 2 Mg/Ml Sdv 2 Ml) 4 mg IVP Q6H PRN PRN Reason: NAUSEA AND VOMITING Ondansetron HCl (Ondansetron 2 Mg/Ml Sdv 2 Ml) 4 mg IVP Q2M PRN PRN Reason: NAUSEA Pantoprazole Sodium (Pantoprazole 40 Mg Sdv) 40 mg IVP Q24H [facility] Last Admin: 11/30/23 16:01 Dose: 40 mg Vitals/I&O/Wt Last Vital Signs Temp 98.6 F 12/01/23 04:00 Pulse 65 12/01/23 08:11 Resp 20 H 12/01/23 08:11 BP 125/73 12/01/23 07:40 Pulse Ox 95 12/01/23 08:12 O2 Del Method Room Air 12/01/23 08:12 O2 Flow Rate 2 11/28/23 06:00 11/30/23 12/01/23 12/01/23 22:59 06:59 14:59 Intake Total 1827.5 / 2934.0 580 / 580 Output Total 300 / 700 Balance 1527.5 / 2234.0 580 / 580 Weight last 48 hrs Weight 272 lb Physical Exam 2 Narrative: GENERAL: The patient is alert and oriented times three. Not in any acute distress. Obese. Hard of hearing. HEENT: No significant pallor, icterus or lymphadenopathy.Oral cavity: There are no mucous membrane lesions. NECK: Trachea appears to be central. No masses noted. No JVD or thyromegaly appreciated. RESPIRATORY: The pacemaker site appears to have no hematoma or bleeding. No intercostals muscle retraction or any accessory muscle activation. There is no chest wall tenderness. Breath sounds are heard bilaterally. No rales or rhonchi heard. No evidence of any consolidation. The breath sounds are diminished in the bases BREASTS: Deferred. HEART: The heart sounds are normal. No S3 or S4. No significant murmurs. No pericardial rub ABDOMEN: No vessel pulsations or distention. No tenderness. No organomegaly appreciated. Bowel sounds are normally heard. : Deferred. RECTAL: Deferred. LYMPHATIC: No lymphadenopathy noted in the neck. EXTREMITIES: No edema or cyanosis. No clubbing. MUSCULOSKELETAL: No acute joint deformities or swelling SKIN: There are no significant rashes or ecchymosis NEUROPSYCHIATRIC: The patient is alert and oriented x3. Appears to be in a good mood. No tremors or rigidity noted. Data 12/01/23 03:54 12/01/23 03:54 Other Labs: Laboratory Last Values WBC 9.63 10^3/uL (3.29-11.43) 12/01/23 03:54 RBC 4.55 10^6/uL (3.85-5.65) 12/01/23 03:54 Hgb 14.10 g/dL (11.27-16.99) 12/01/23 03:54 Hct 43.5 % (37-53) 12/01/23 03:54 MCV 95.6 fl (82-101) 12/01/23 03:54 MCH 31.0 pg (27-33) 12/01/23 03:54 MCHC 32.4 g/dL (30-55) 12/01/23 03:54 RDW 13.4 % (12.1-15.1) 12/01/23 03:54 Plt Count 149 10^3/cmm (157-399) L 12/01/23 03:54 MPV 11.5 fL (7.4-10.4) H 12/01/23 03:54 Neut % (Auto) 76.8 % 12/01/23 03:54 Lymph % (Auto) 9.3 % 12/01/23 03:54 [place] % (Auto) 12.8 % 12/01/23 03:54 Eos % (Auto) 0.5 % 12/01/23 03:54 Baso % (Auto) 0.2 % 12/01/23 03:54 Neut # (Auto) 7.39 10^3/uL (1.8-7.7) 12/01/23 03:54 Lymph # (Auto) 0.9 10^3/uL (0.8-4.8) 12/01/23 03:54 [place] # (Auto) 1.2 10^3/uL (0.2-0.9) H 12/01/23 03:54 Eos # (Auto) 0.1 10^3/uL (0.0-0.8) 12/01/23 03:54 Baso # (Auto) 0.0 10^3/uL (0.0-0.1) 12/01/23 03:54 Nucleated RBC % (auto) 0 % 12/01/23 03:54 Nucleated RBCs # 0.0 /100WBC 12/01/23 03:54 ESR 5 mm/hr (0-10) 11/27/23 13:36 PT 14.00 SECONDS (12.1-14.9) 11/27/23 13:36 INR 1.04 (0.8-1.2) 11/27/23 13:36 Sodium 138 mmol/L (136-145) 12/01/23 03:54 Potassium 4.3 mmol/L (3.5-5.1) 12/01/23 03:54 Chloride 103 mmol/L (98-107) 12/01/23 03:54 Carbon Dioxide 26 mmol/L (22-29) 12/01/23 03:54 Anion Gap 13.3 (5-19) 12/01/23 03:54 BUN 24 mg/dL (8-23) H 12/01/23 03:54 Creatinine 1.3 mg/dL (0.7-1.2) H 12/01/23 03:54 GFR Calculation Not Reportable 12/01/23 03:54 Glucose 126 mg/dL (65-115) H 12/01/23 03:54 Estimat Average Glucose 126 11/27/23 13:36 Hemoglobin A1c 6.0 % (4.0-6.0) 11/27/23 13:36 Calculated Osmolality 292 mOsm/kg (285-295) 12/01/23 03:54 Lactic Acid 1.5 mmol/L (0.5-2.2) 11/27/23 13:36 Calcium 9.4 mg/dL (8.5-10.5) 12/01/23 03:54 Phosphorus 2.3 mg/dL (2.5-4.5) L 12/01/23 03:54 Magnesium 2.1 mg/dL (1.7-2.3) 12/01/23 03:54 Total Bilirubin 1.1 mg/dL (0.15-1.2) 12/01/23 03:54 AST 20 U/L (0-40) 12/01/23 03:54 ALT 12 U/L (0-41) 12/01/23 03:54 Alkaline Phosphatase 57 U/L (40-130) 12/01/23 03:54 Troponin T 5th Gen ng/L 59 ng/L (0-15) H 11/30/23 18:47 Troponin T Baseline 56 ng/L (0-15) H 11/30/23 09:47 Troponin T 120 Minute 60.80 ng/L (0-15) H 11/30/23 11:58 Delta Troponin T 4.80 ABS# (0-10) 11/30/23 11:58 Troponin T Hi Sens 6Hr 62.56 ng/L (0-15) H 11/30/23 15:47 Troponin T Hi Sens 6Hr Delta 6.56 ng/L (0-12) 11/30/23 15:47 C-Reactive Protein 3.0 mg/L (0.0-4.9) 11/27/23 13:36 NT-Pro-B Natriuret Pep 145 pg/mL (0-450) 11/30/23 03:14 Total Protein 6.5 g/dL (6.6-8.7) L 12/01/23 03:54 Albumin 4.0 g/dL (3.5-5.2) 12/01/23 03:54 Globulin 2.5 g/dL (1.3-4.6) 12/01/23 03:54 Triglycerides 132 mg/dL (0-150) 11/27/23 13:36 Cholesterol 146 mg/dL (0-200) 11/27/23 13:36 LDL Cholesterol, Calc 64 mg/dL (50-129) 11/27/23 13:36 HDL Cholesterol 56 mg/dL (60-100) L 11/27/23 13:36 LDL/HDL Ratio 1.14 RATIO (0.00-3.22) 11/27/23 13:36 Cholesterol/HDL Ratio 2.61 mg/dL (1.0-5.00) 11/27/23 13:36 Procalcitonin 0.15 ng/mL (0-0.5) 11/27/23 13:36 TSH 1.52 uIU/mL (0.27-4.20) 11/27/23 13:36 TSH 1.52 uIU/mL (0.27-4.20) 11/27/23 13:36 Urine Color Yellow (Yellow) 11/28/23 05:30 Urine Appearance Clear (CLEAR) 11/28/23 05:30 Urine pH 6 (5-7) 11/28/23 05:30 Ur Specific [place] 1.015 (1.005-1.030) 11/28/23 05:30 Urine Protein Neg (Negative) 11/28/23 05:30 Urine Glucose (UA) Norm (Normal) 11/28/23 05:30 Urine Ketones Negative (Negative) 11/28/23 05:30 Urine Blood Neg (Negative) 11/28/23 05:30 Urine Nitrate Negative (Negative) 11/28/23 05:30 Urine Bilirubin Neg (Negative) 11/28/23 05:30 Urine Urobilinogen Neg mg/dL (Negative) 11/28/23 05:30 Ur Leukocyte Esterase Negative (Negative) 11/28/23 05:30 Urine Opiates Screen Negative ng/mL (Negative) 11/28/23 05:30 Ur Barbiturates Screen Negative ng/mL (Negative) 11/28/23 05:30 Ur Phencyclidine Scrn Negative ng/mL (Negative) 11/28/23 05:30 Ur Amphetamines Screen Negative ng/mL (Negative) 11/28/23 05:30 U Benzodiazepines Scrn Negative ng/mL (Negative) 11/28/23 05:30 Urine Cocaine Screen Negative ng/mL (Negative) 11/28/23 05:30 U Marijuana (THC) Screen Negative ng/mL (Negative) 11/28/23 05:30 Ethyl Alcohol < 10 mg/dL (0-10) 11/27/23 13:36 A&P Assessment and plan (1) Chest pain: Most likely musculoskeletal. Currently his pain-free. The echocardiogram was unchanged. No evidence of microinjury Qualifiers: Chest pain type: other chest pain Qualified Code(s): R07.89 - Other chest pain (2) Presence of permanent cardiac pacemaker: Patient has a permanent dual-chamber pacemaker. Seems to be functioning okay. May continue the antibiotic for a total of 5 days (3) Nonischemic congestive cardiomyopathy: Patient seems to have intermittent heart failure. May increase the dose of the Lasix to 40 mg p.o. daily with potassium 20 mg p.o. daily (4) HTN (hypertension): Currently normotensive. Qualifiers: Hypertension type: essential hypertension Qualified Code(s): I10 - Essential (primary) hypertension (5) CAD (coronary artery disease): Mild CAD by angiogram as mentioned above. Had a Myocardial perfusion imaging which revealed mostly areas of fixed defects with small areas of reversible defects in the inferolateral region. Since he was remaining stable with no significant chest pain, it was decided to go ahead with the permanent pacemaker insertion. Qualifiers: Coronary Disease-Associated Artery/Lesion type: [place] artery [place] vs. transplanted heart: [place] heart Associated angina: without angina Qualified Code(s): I25.10 - Atherosclerotic heart disease of [place] coronary artery without angina pectoris Plan If the patient continues to remain stable, may be discharged home from a cardiac standpoint. May go home with the Lasix 40 mg p.o. daily and potassium 20 mg p.o. daily Follow-up appointment [facility] in 1 week Continue the antibiotic for 5 days, Keflex 500 mg p.o. every 6 hours Follow-up appointment with me in 1 month Attestations 2 Medical Necessity Statement*: Possible discharge home today Coding Level of Care Code 27993 Diagnoses Other chest pain R07.89 Chest pain type: other chest pain Presence of permanent cardiac pacemaker Z95.0 Nonischemic congestive cardiomyopathy I42.0 Essential hypertension I10 Hypertension type: essential hypertension Coronary artery disease involving [place] coronary artery of [place] heart without angina pectoris I25.10 Coronary Disease-Associated Artery/Lesion type: [place] artery [place] vs. transplanted heart: [place] heart Associated angina: without angina
[2023-12-01] MEDS: FUROsemide 40 mg Tablet PO (10:53)
[2023-12-01] MEDS: potassium chloride ER 20 mEq Tablet PO (10:53)
--- NOTE | 2023-12-01 11:19 | PM.DCS ---
Discharge Providers Date of Admission: 11/27/23 14:30 Date of Discharge: December 01, 2023 Attending Provider at Admission: Sheng Kendall MD Attending Provider at Discharge: Sheng Kendall MD Primary Care Provider: Leidy Gallardo MD Diagnoses at Discharge Discharge Diagnosis (1) Bradycardia: Status: Acute (2) NSTEMI (non-ST elevated myocardial infarction): Status: Acute (3) CAD (coronary artery disease): Status: Acute Qualifiers: Coronary Disease-Associated Artery/Lesion type: [place] artery [place] vs. transplanted heart: [place] heart Associated angina: without angina Qualified Code(s): I25.10 - Atherosclerotic heart disease of [place] coronary artery without angina pectoris (4) CHF (congestive heart failure): Status: Acute Qualifiers: Heart failure type: combined systolic and diastolic Heart failure chronicity: chronic Qualified Code(s): I50.42 - Chronic combined systolic (congestive) and diastolic (congestive) heart failure (5) HTN (hypertension): Status: Acute Qualifiers: Hypertension type: essential hypertension Qualified Code(s): I10 - Essential (primary) hypertension (6) Fatty liver disease, nonalcoholic: Status: Acute Reason for Visit Reason for Visit: weakness, sob Hospital Course Hospital Course Fercho Flynn is a 83 year old male with a past medical history of COPD, CHF, hypertension, obesity, CAD, who presents [facility] due to lightheadedness, cataracts, and bradycardia. Patient tells me that yesterday, in the evening time, he had a [employer] sandwich, with a lot of peppers and, after eating the sandwich, he felt unwell, after eating the sandwich had a lot of burping a lot of belching, he also reports feeling lightheaded, no syncope, he did have some epigastric discomfort, so he checked his vitals, his heart rate was in the low 30s his blood pressures were within normal limits oxygen saturation within normal limits, he tells me that with his chronic obstructive pulmonary emphysema he has been trying to wean himself off Advair and a lot of the other medications that he feels is worsening his shortness of breath and his cough he also tells me that he has been trying to wean himself off his oxygen, so he has been using it during the day, and now has not been using it during the night, he was worried about his pulse throughout the night, but he finally went to sleep, he woke up this morning, continue to have a lot of burping and belching and epigastric discomfort, he checked his pulse ox again, and his heart rate was in the low 30s, normal oxygen saturation, normal blood pressures he called his physician and she advised him to come to the emergency room, currently heart rates in the 30s, normotensive on room air, alert oriented x 3, denies any history of sinus dysfunction, no history of alcoholism, denies using beta-blockers denies any IV drug use, Patient was admitted to [facility] for bradycardia, with findings of second-degree AV block type II, status post pacemaker placement, tolerated procedure well, discharged on p.o. antibiotics with follow-up with cardiology as outpatient. Patient also had stress testing during his hospitalization IMPRESSIONS 1. Abnormal myocardial perfusion imaging with medium sized area of prior infarct with minimal donya-infarct ischemia seen in the RCA territory. 2. Medium sized area of prior infarct with some [place]-infarct ischemia (small to medium sized) noted in the left circumflex artery territory. 3. LV systolic function is normal -Will monitor patient in [facility] -Cardiac cath in 2020 showed 20% stenosis of right coronary artery, -Follow-up with cardiology as outpatient -Patient was advised if he has any worsening shortness of breath to go to the emergency room Physical Exam Const: COMMON NORMALS: no acute distress and patient oriented x3 Resp: COMMON NORMALS: normal respiratory effort, No retractions, No use of accessory muscles and clear to auscultation bilaterally AUSCULTATION: clear to auscultation bilaterally Cardio: COMMON NORMALS: regular rate, regular rhythm, S1 normal heart sound present and S2 normal heart sound present RATE: regular rate RHYTHM: regular rhythm HEART SOUNDS: S1 normal heart sound present and S2 normal heart sound present GI: COMMON NORMALS: Normal to inspection, nondistended, normoactive bowel sounds present and non-tender Extremity: COMMON NORMALS: no pedal edema Neuro: COMMON NORMALS: patient oriented x3 Psych: COMMON NORMALS: mental status grossly normal Discharge Data Studies Completed and Pending Completed Studies During Hospitalization Category Date Time Status [employer] request for service Routine Exams 11/29/23 06:44 Completed CXRP [XR chest 1V portable [id number]] Routine Exams 11/29/23 13:27 Completed Cardiac Stress Test MIBI [Sestamibi Stress Test Request Exams 11/28/23 07:33 Completed ] Routine XR chest 1V portable [id number] Routine Exams 11/30/23 09:08 Completed XR chest 1V portable [id number] Stat Exams 11/27/23 13:21 Completed XR shoulder LT min 2V* [id number] Routine Exams 11/30/23 14:37 Completed XR shoulder RT min 2V* [id number] Routine Exams 11/30/23 14:37 Completed NM sukhdev perf SPECT r/s* [id number] Routine Nuc Med 11/28/23 07:34 Completed CV. echo complete* [id number] Routine Ultrasound 11/27/23 15:58 Completed CV. echo limited [id number] Routine Ultrasound 11/30/23 10:35 Completed Pending at discharge Category Date Time Status Complete Blood Count w/Auto AM LABS Lab 12/02/23 04:00 Ordered Complete Blood Count w/Auto AM LABS Lab 12/03/23 04:00 Ordered Comprehensive Metabolic Panel AM LABS Lab 12/02/23 04:00 Ordered Comprehensive Metabolic Panel AM LABS Lab 12/03/23 04:00 Ordered Magnesium AM LABS Lab 12/02/23 04:00 Ordered Magnesium AM LABS Lab 12/03/23 04:00 Ordered Phosphorus AM LABS Lab 12/02/23 04:00 Ordered Phosphorus AM LABS Lab 12/03/23 04:00 Ordered Radiology Impressions Chest X-Ray 11/30/23 09:08 IMPRESSION: No acute cardiopulmonary process. Shoulder X-Ray 11/30/23 14:37 IMPRESSION: 1. 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 2. Osseous irregularity of the greater tuberosity suggestive of sequela of remote trauma. Laboratory Results WBC 9.63 10^3/uL (3.29-11.43) 12/01/23 03:54 RBC 4.55 10^6/uL (3.85-5.65) 12/01/23 03:54 Hgb 14.10 g/dL (11.27-16.99) 12/01/23 03:54 Hct 43.5 % (37-53) 12/01/23 03:54 MCV 95.6 fl (82-101) 12/01/23 03:54 MCH 31.0 pg (27-33) 12/01/23 03:54 MCHC 32.4 g/dL (30-55) 12/01/23 03:54 RDW 13.4 % (12.1-15.1) 12/01/23 03:54 Plt Count 149 10^3/cmm (157-399) L 12/01/23 03:54 MPV 11.5 fL (7.4-10.4) H 12/01/23 03:54 Neut % (Auto) 76.8 % 12/01/23 03:54 Lymph % (Auto) 9.3 % 12/01/23 03:54 [place] % (Auto) 12.8 % 12/01/23 03:54 Eos % (Auto) 0.5 % 12/01/23 03:54 Baso % (Auto) 0.2 % 12/01/23 03:54 Neut # (Auto) 7.39 10^3/uL (1.8-7.7) 12/01/23 03:54 Lymph # (Auto) 0.9 10^3/uL (0.8-4.8) 12/01/23 03:54 [place] # (Auto) 1.2 10^3/uL (0.2-0.9) H 12/01/23 03:54 Eos # (Auto) 0.1 10^3/uL (0.0-0.8) 12/01/23 03:54 Baso # (Auto) 0.0 10^3/uL (0.0-0.1) 12/01/23 03:54 Nucleated RBC % (auto) 0 % 12/01/23 03:54 Nucleated RBCs # 0.0 /100WBC 12/01/23 03:54 ESR 5 mm/hr (0-10) 11/27/23 13:36 PT 14.00 SECONDS (12.1-14.9) 11/27/23 13:36 INR 1.04 (0.8-1.2) 11/27/23 13:36 Sodium 138 mmol/L (136-145) 12/01/23 03:54 Potassium 4.3 mmol/L (3.5-5.1) 12/01/23 03:54 Chloride 103 mmol/L (98-107) 12/01/23 03:54 Carbon Dioxide 26 mmol/L (22-29) 12/01/23 03:54 Anion Gap 13.3 (5-19) 12/01/23 03:54 BUN 24 mg/dL (8-23) H 12/01/23 03:54 Creatinine 1.3 mg/dL (0.7-1.2) H 12/01/23 03:54 GFR Calculation Not Reportable 12/01/23 03:54 Glucose 126 mg/dL (65-115) H 12/01/23 03:54 Estimat Average Glucose 126 11/27/23 13:36 Hemoglobin A1c 6.0 % (4.0-6.0) 11/27/23 13:36 Calculated Osmolality 292 mOsm/kg (285-295) 12/01/23 03:54 Lactic Acid 1.5 mmol/L (0.5-2.2) 11/27/23 13:36 Calcium 9.4 mg/dL (8.5-10.5) 12/01/23 03:54 Phosphorus 2.3 mg/dL (2.5-4.5) L 12/01/23 03:54 Magnesium 2.1 mg/dL (1.7-2.3) 12/01/23 03:54 Total Bilirubin 1.1 mg/dL (0.15-1.2) 12/01/23 03:54 AST 20 U/L (0-40) 12/01/23 03:54 ALT 12 U/L (0-41) 12/01/23 03:54 Alkaline Phosphatase 57 U/L (40-130) 12/01/23 03:54 Troponin T 5th Gen ng/L 59 ng/L (0-15) H 11/30/23 18:47 Troponin T Baseline 56 ng/L (0-15) H 11/30/23 09:47 Troponin T 120 Minute 60.80 ng/L (0-15) H 11/30/23 11:58 Delta Troponin T 4.80 ABS# (0-10) 11/30/23 11:58 Troponin T Hi Sens 6Hr 62.56 ng/L (0-15) H 11/30/23 15:47 Troponin T Hi Sens 6Hr Delta 6.56 ng/L (0-12) 11/30/23 15:47 C-Reactive Protein 3.0 mg/L (0.0-4.9) 11/27/23 13:36 NT-Pro-B Natriuret Pep 145 pg/mL (0-450) 11/30/23 03:14 Total Protein 6.5 g/dL (6.6-8.7) L 12/01/23 03:54 Albumin 4.0 g/dL (3.5-5.2) 12/01/23 03:54 Globulin 2.5 g/dL (1.3-4.6) 12/01/23 03:54 Triglycerides 132 mg/dL (0-150) 11/27/23 13:36 Cholesterol 146 mg/dL (0-200) 11/27/23 13:36 LDL Cholesterol, Calc 64 mg/dL (50-129) 11/27/23 13:36 HDL Cholesterol 56 mg/dL (60-100) L 11/27/23 13:36 LDL/HDL Ratio 1.14 RATIO (0.00-3.22) 11/27/23 13:36 Cholesterol/HDL Ratio 2.61 mg/dL (1.0-5.00) 11/27/23 13:36 Procalcitonin 0.15 ng/mL (0-0.5) 11/27/23 13:36 TSH 1.52 uIU/mL (0.27-4.20) 11/27/23 13:36 TSH 1.52 uIU/mL (0.27-4.20) 11/27/23 13:36 Urine Color Yellow (Yellow) 11/28/23 05:30 Urine Appearance Clear (CLEAR) 11/28/23 05:30 Urine pH 6 (5-7) 11/28/23 05:30 Ur Specific [place] 1.015 (1.005-1.030) 11/28/23 05:30 Urine Protein Neg (Negative) 11/28/23 05:30 Urine Glucose (UA) Norm (Normal) 11/28/23 05:30 Urine Ketones Negative (Negative) 11/28/23 05:30 Urine Blood Neg (Negative) 11/28/23 05:30 Urine Nitrate Negative (Negative) 11/28/23 05:30 Urine Bilirubin Neg (Negative) 11/28/23 05:30 Urine Urobilinogen Neg mg/dL (Negative) 11/28/23 05:30 Ur Leukocyte Esterase Negative (Negative) 11/28/23 05:30 Urine Opiates Screen Negative ng/mL (Negative) 11/28/23 05:30 Ur Barbiturates Screen Negative ng/mL (Negative) 11/28/23 05:30 Ur Phencyclidine Scrn Negative ng/mL (Negative) 11/28/23 05:30 Ur Amphetamines Screen Negative ng/mL (Negative) 11/28/23 05:30 U Benzodiazepines Scrn Negative ng/mL (Negative) 11/28/23 05:30 Urine Cocaine Screen Negative ng/mL (Negative) 11/28/23 05:30 U Marijuana (THC) Screen Negative ng/mL (Negative) 11/28/23 05:30 Ethyl Alcohol < 10 mg/dL (0-10) 11/27/23 13:36 Vitals Last Vital Signs Temp 98.1 F 12/01/23 08:00 Pulse 72 12/01/23 10:00 Resp 20 H 12/01/23 08:11 BP 125/73 12/01/23 07:40 Pulse Ox 94 12/01/23 10:00 O2 Del Method Room Air 12/01/23 10:00 O2 Flow Rate 2 11/28/23 06:00 Discharge Plan Discharge Patient Disposition: Home Condition: Stable Prescriptions: New cephalexin 500 mg Capsule 500 mg PO QID Qty: 20 0RF metoprolol tartrate 25 mg Tablet 25 mg PO BID@0900,2100 30 Days Qty: 60 0RF Continued PreserVision AREDS-2 [id number] capsule 1 tab PO BID Rx Instructions: administer with meals budesonide-formoterol [Symbicort] 160-4.5 mcg/actuation HFA aerosol inhaler 2 puff inhalation BID Qty: 10.2 3RF meloxicam 15 mg tablet 15 mg PO QAM PRN (Reason: pain) 90 Days Qty: 90 2RF cholecalciferol (vitamin D3) 125 mcg (5,000 unit) capsule 125 mcg PO QAM montelukast [Singulair] 10 mg tablet 10 mg PO DAILY Qty: 90 3RF fluticasone propion-salmeterol [Advair Diskus] 500-50 mcg/dose blister with device 1 inh inhalation BID PRN (Reason: Shortness Of Breath Or Wheezing) atorvastatin 10 mg tablet 10 mg PO BEDTIME Qty: 90 0RF aspirin [Adult Aspirin Regimen] 81 mg tablet,delayed release (DR/EC) 81 mg PO BEDTIME Fish Oil 120-180 mg Capsule 1 cap PO DAILY Vitamin D3 125 mcg (5,000 unit) Tablet 125 mcg PO DAILY Men's Multivitamin 400-20-300 mcg Tablet 1 tab PO DAILY potassium chloride 10 mEq capsule, extended release 10 meq PO QAM furosemide 20 mg tablet 20 mg PO QAM Discontinued lisinopril 20 mg tablet 20 mg PO QAM Qty: 90 0RF Discharge Orders: Discharge Order (Routine); Ordered 12/01/23 Ordered By: Sheng Kendall Referrals: Helen Trevino FNP [Nurse Practitioner] - 12/18/23 1:30 pm Leidy Gallardo MD [Primary Care Provider] - 12/03/23 11:00 am Discharge Diet: Cardiac Discharge Activity: Resume usual activity Patient Instructions: Cephalexin (By mouth) (Bio-Cef, Keflex), Metoprolol (By mouth) (Lopressor, Toprol XL), Heart Failure (DC), Pacemaker (DC), Heart Block (DC), Coronary Angioplasty (DC), CHF Stoplight, Opioid Safety, Post Angiogram Home Care Instructions, Post Pacemaker - Praful Activity Restrictions/Additional Instructions: Take the antibiotics as prescribed for a total of 5 days Appointment the [facility] next to see the nurse practitioner Keep the Covederm dressing on till he come back to the office. Keep the pacemaker site clean and dry Appoint with me in the office in 1 month Discharge Attestations Time Spent in Discharge Care*: greater than 30 min Quality Metrics Clinical Quality Measures [ No reported AMI, CVA or VTE this stay] Coding Level of Care Code 00248 Total time (in minutes) for Discharge: 45 Diagnoses Bradycardia R00.1 NSTEMI (non-ST elevated myocardial infarction) I21.4 Coronary artery disease involving [place] coronary artery of [place] heart without angina pectoris I25.10 Coronary Disease-Associated Artery/Lesion type: [place] artery [place] vs. transplanted heart: [place] heart Associated angina: without angina Chronic combined systolic and diastolic congestive heart failure I50.42 Heart failure type: combined systolic and diastolic Heart failure chronicity: chronic Essential hypertension I10 Hypertension type: essential hypertension Fatty liver disease, nonalcoholic K76.0
== END 2023-12-01 13:30 | disposition home or self-care (01) | DRG 243 ==
LOC: ER 13:42 → ICU 14:33 → CSU 11-29 09:27
PROVIDERS: Internal Medicine Cardiovascular Disease; Admitting Provider Family Medicine; Emergency Provider Family Medicine; PCP Family Medicine; Visit Provider Family Medicine
PROC: 0JH606Z Insertion of Pacemaker, Dual Chamber into Chest Subcutaneous Tissue and Fascia, Open Approach (ICD-10-PCS; principal; 2023-11-29 07:15)
DX: I44.1 Atrioventricular block, second degree (principal); I50.32 Chronic diastolic (congestive) heart failure; J43.9 Emphysema, unspecified; I11.0 Hypertensive heart disease with heart failure; M19.012 Primary osteoarthritis, left shoulder; I25.10 Atherosclerotic heart disease of native coronary artery without angina pectoris; F41.9 Anxiety disorder, unspecified; H35.30 Unspecified macular degeneration; E78.5 Hyperlipidemia, unspecified; F10.11 Alcohol abuse, in remission; R07.9 Chest pain, unspecified; M25.512 Pain in left shoulder; M25.511 Pain in right shoulder; E66.01 Morbid (severe) obesity due to excess calories; K76.0 Fatty (change of) liver, not elsewhere classified; I42.8 Other cardiomyopathies; H91.90 Unspecified hearing loss, unspecified ear; Z99.81 Dependence on supplemental oxygen; Z68.39 Body mass index [BMI] 39.0-39.9, adult; Z86.16 Personal history of COVID-19; Z87.891 Personal history of nicotine dependence; Z87.442 Personal history of urinary calculi; Z79.82 Long term (current) use of aspirin
CPT/HCPCS: 33208; 33210; 36415; 71045; 73030; 78452; 80053; 80061; 80306; 80307; 81003; 83036; 83605; 83735; 83880; 84100; 84145; 84443; 84484; 85025; 85610; 85651; 86140; 93005; 93017; 93306; 93308; 94664; 96365; 96372; 96374; 96375; 96376; 97110; 97166; 97535; 99152; 99153; 99285; A4216; A9500; C1769; C1779; C1786; C1894; C1898; C9113; J0280; J0690; J1200; J1644; J1650; J1940; J2250; J2270; J2785; J3010; J3370; J7030; J7050; Q9967

== ENCOUNTER → 2023-12-10 09:56 | Outpatient (BNVA) | payer MEDICARE, OTHER, SELFPAY | PROVIDERS: PCP Family Medicine; Visit Provider Nurse Practitioner Family | DX: I25.10 Atherosclerotic heart disease of native coronary artery without angina pectoris (principal); Z95.0 Presence of cardiac pacemaker; J43.1 Panlobular emphysema | CPT/HCPCS: 93005 ==

== ENCOUNTER → 2023-12-18 13:06 | Outpatient (BNVA) | payer MEDICARE, OTHER, SELFPAY | PROVIDERS: PCP Family Medicine; Visit Provider Nurse Practitioner Family | DX: Z95.0 Presence of cardiac pacemaker (principal); Z09 Encounter for follow-up examination after completed treatment for conditions other than malignant neoplasm | CPT/HCPCS: 93288; 99213 ==

== ENCOUNTER 2023-12-21 20:55 | Emergency (ER) | payer MEDICARE, OTHER, SELFPAY ==
[2023-12-21] VITALS (11 sets, daily range): BP systolic 115–152; BP diastolic 65–73; PULSE 75–85; RESP 18–26; TEMP 36.7; O2SAT 92–94
--- NOTE | 2023-12-21 20:57 | ECG_ITS ---
[facility] Test Date: 2023-12-21 Pat Name: Fercho Flynn Department: Room: Gender: Male Patient Care Assistant: : 1940 Requested By: Kervin Granger Order Number: [id number] Dhruv MD: Michael Ng M.D. Measurements Intervals [place] Rate: 70 P: 107 [place]: 176 QRS: -63 QRSD: 192 T: 93 QT: 444 QTc: 479 Interpretive Statements ELECTRONIC ATRIAL PACEMAKER ELECTRONIC VENTRICULAR PACEMAKER Compared to ECG 11/30/2023 14:59:40 No significant changes Electronically Signed On 12-22-2023 11:08:59 CDT by Michael Ng M.D. [id number] f
--- NOTE | 2023-12-21 21:17 | ECG_ITS ---
[facility] Test Date: 2023-12-21 Pat Name: Fercho Flynn Department: Room: Gender: Male Sports Journalist: : 1940 Requested By: Carrington Zhong Order Number: [id number] Dhruv MD: Michael Ng M.D. Measurements Intervals [place] Rate: 81 P: 60 [place]: 187 QRS: -75 QRSD: 190 T: 92 QT: 445 QTc: 518 Interpretive Statements ELECTRONIC VENTRICULAR PACEMAKER Compared to ECG 12/21/2023 20:57:42 Atrial-paced complex(es) or rhythm no longer present Electronically Signed On 12-22-2023 11:07:05 CDT by Michael Ng M.D. [id number]
--- NOTE | 2023-12-21 21:17 | XRR_ITS ---
PROCEDURE INFORMATION: Exam: XR Chest Exam date and time: 12/21/2023 9:42 PM Age: 83 years old Clinical indication: Angina pectoris; Prior surgery; Surgery date: <1 month; Surgery type: Pacemaker x 1 mo ago; Patient HX: Cough; SOB; Chest pain TECHNIQUE: Imaging protocol: Radiologic exam of the chest. Views: 1 view. COMPARISON: CR XR chest 1V portable [id number] 11/30/2023 8:38 AM FINDINGS: Tubes, catheters and devices: Left chest wall implantable pacer. Lungs: No consolidation. Pleural spaces: No pleural effusion or pneumothorax. Heart/Mediastinum: Cardiomediastinal silhouette appears stable. Bones/joints: No acute osseous abnormalities are seen. Other findings: Stable diffuse bilateral calcified granulomata. XR/XR chest 1V portable [id number] IMPRESSION: No acute cardiopulmonary disease.
[2023-12-21 21:51] LABS: Basophils % 0.4 %; Eosinophils # 0.2 10^3/uL (0.0-0.8); Eosinophils % 1.7 %; Hematocrit 44.7 % (37-53); Lymphocytes # 0.9 10^3/uL (0.8-4.8); Lymphocytes % 9.3 %; Mean Platelet Volume 10.2 fL (7.4-10.4); Monocytes # 1.2 10^3/uL (0.2-0.9); Monocytes % 11.9 %; Neutrophils # 7.72 10^3/uL (1.8-7.7); Neutrophils % 76.2 %; Nucleated Red Blood Cells % 0 %; Platelet Count 176 10^3/cmm (157-399); Red Blood Count 4.61 10^6/uL (3.85-5.65); Red Cell Distribution Width 13.5 % (12.1-15.1); White Blood Count 10.12 10^3/uL (3.29-11.43)
[2023-12-21 22:10] LABS: Troponin(5th) Baseline 35 ng/L (0-15)
[2023-12-21 22:21] LABS: Alanine Aminotransferase 37 U/L (0-41); Albumin Level 4.2 g/dL (3.5-5.2); Alkaline Phosphatase 74 U/L (40-130); Anion Gap 14.5 (5-19); Aspartate Amino Transferase 33 U/L (0-40); Blood Urea Nitrogen 17 mg/dL (8-23); Calcium 9.3 mg/dL (8.5-10.5); Carbon Dioxide 30 mmol/L (22-29); Chloride 100 mmol/L (98-107); Creatinine Clr Calc Pharmacy 67.8178; Globulin 1.8 g/dL (1.3-4.6); Glucose 149 mg/dL (65-115); NT Pro B Type Natriuretic Pept 284 pg/mL (0-450); Osmolality Calculated 294 mOsm/kg (285-295); Potassium 4.5 mmol/L (3.5-5.1); Sodium 140 mmol/L (136-145); Total Bilirubin 0.9 mg/dL (0.15-1.2)
[2023-12-21 23:52] LABS: Troponin 5 2HR 32.65 ng/L (0-15)
[2023-12-21 23:53] LABS: Troponin 5 2HR Delta -2.35 ABS# (0-10)
--- NOTE | 2023-12-21 23:56 | ED_ITS ---
HPI - Chest Pain 2 General: Chief Complaint: Chest Pain Stated Complaint: Pace Maker New Chest Pains Time Seen by Provider: 12/21/23 22:06 History of Present Illness: 83-year-old male with a history of recen t pacemaker placement. He presents with chest discomfort, mainly to the left side of his chest. He had some shortness of breath with this as well. With his recent pacemaker placement, he was concerned that there may be a malfunction. He denies significant cough or leg swelling. He denies fever. Associated symptoms: Reports dyspnea and palpitations; Deny abdominal pain, fever(s) or vomiting Review of Systems 2 Const: Denies: fever(s) Card: Reports: chest pain and palpitations Resp: Reports: dyspnea; Denies: productive cough or non-productive cough GI: Denies: abdominal pain or vomiting Skin/Breast: Denies: rash Psych: Reports: anxiety PFSH ED 2 PFSH: Medical History Second degree AV block, Mobitz type II COVID Arthritis of left shoulder region Abnormal nuclear stress test CAD (coronary artery disease) Gastritis and duodenitis History of tobacco use Hypokalemia Anxiety HTN (hypertension) Histoplasmosis Macular degeneration Hyperlipidemia Left renal stone Urinary frequency Abnormal PSA Hydronephrosis, left Surgical History History of esophagogastroduodenoscopy (EGD) 2020 Hx of umbilical hernia repair Hx of inguinal hernia repair Hx of right knee surgery Patella injury Hx of cataract removal with insertion of prosthetic lens Family History Father , in his 80's CAD (coronary artery disease) Mother , at age 78 Lung disease Social History Smoking and tobacco/nicotine status: former use of tobacco/nicotine Quit status (tobacco/nicotine): has quit using Year quit tobacco: 1990 Former quit date comment: Hx of 1.5 PPD x 40 Years Alcohol intake: former Year of sobriety/quit date alcohol: 1960 Substance/Drug Use: never Adopted: No Caregiver/support person: No Lives independently: Yes Household members: none Marital status: / Current occupational status: retired and disabled 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 Pets and animals: Yes Pets & animals: cat(s) Do you think of yourself as: Straight/Heterosexual Current gender identity: Male Physical Exam 2 Const: COMMON NORMALS: no acute distress GENERAL APPEARANCE: cooperative; not ill appearing and not frail appearing HENMT: COMMON NORMALS: normocephalic, atraumatic and Normal external nose present HEAD & SCALP: normocephalic and atraumatic FACE & SINUS: normal facial exam and face symmetric NOSE: Normal external nose present Eye: COMMON NORMALS: Equal, round and reactive pupils present and EOMs intact bilaterally PUPIL: Yes Equal, round and reactive pupils present Neck/C-Spine: GENERAL: Yes trachea midline Chest: CHEST: Yes Symmetrical chest wall rise Resp: COMMON NORMALS: normal respiratory effort, No retractions, No use of accessory muscles and clear to auscultation bilaterally AUSCULTATION: clear to auscultation bilaterally Cardio: COMMON NORMALS: regular rate and regular rhythm RATE: regular rate RHYTHM: regular rhythm GI: COMMON NORMALS: Normal to inspection, nondistended, normoactive bowel sounds present Extremity: COMMON NORMALS: no pedal edema Neuro: J CARLOS COMA SCALE: document GCS findings J Carlos coma scale eye opening: Spontaneous [place] coma scale verbal response: Orientated J Carlos coma scale motor response: Obey commands [place] coma scale total score: 15 S ENSORY EXAM: Yes extremities (intact) Psych: COMMON NORMALS: speech normal SPEECH: Yes normal speech Skin: COMMON NORMALS: no rashes or lesions noted GENERAL SKIN EXAM: no rashes or lesions noted Course 2 Vital Signs: Vital signs: Vital Signs Temperature 98.0 F 12/21/23 21:03 Pulse Rate 82 12/22/23 00:45 Respiratory Rate 26 H 12/22/23 00:45 Blood Pressure 135/73 12/22/23 01:00 Pulse Oximetry 94 12/22/23 00:45 Oxygen Delivery Me thod Room Air 12/21/23 21:07 [facility] - Chest Pain Medical Decision Making Patient's saturations have been good here. He is maintained a paced rhythm at 85. Saturations are 93 to 95%. His blood pressure has been controlled. He is afebrile. White blood cell count is 10. Hemoglobin is 14. Chest x-ray is negative with appropriate appearing wires. Delta troponin is -2. His BNP is 284. Pacemaker is interrogated, and is functioning normally. No discharges or overdrive pacing of arrhythmias. He will be allowed discharge home. Lab Data 12/21/23 21:45 12/21/23 21:45 Radiology Impressions Chest X-Ray 12/21/23 21:17 IMPRESSION: No acute cardiopulmonary disease. Laboratory Results WBC 10.12 10^3/uL (3.29-11.43) 12/21/23 21:45 RBC 4.61 10^6/uL (3.85-5.65) 12/21/23 21:45 Hgb 14.30 g/dL (11.27-16.99) 12/21/23 21:45 Hct 44.7 % (37-53) 12/21/23 21:45 MCV 97.0 fl (82-101) 12/21/23 21:45 MCH 31.0 pg (27-33) 12/21/23 21:45 MCHC 32.0 g/dL (30-55) 12/21/23 21:45 RDW 13.5 % (12.1-15.1) 12/21/23 21:45 Plt Count 176 10^3/cmm (157-399) 12/21/23 21:45 MPV 10.2 fL (7.4-10.4) 12/21/23 21:45 Neut % (Auto) 76.2 % 12/21/23 21:45 Lymph % (Auto) 9.3 % 12/21/23 21:45 [place] % (Auto) 11.9 % 12/21/23 21:45 Eos % (Auto) 1.7 % 12/21/23 21:45 Baso % (Auto) 0.4 % 12/21/23 21:45 Neut # (Auto) 7.72 10^3/uL (1.8-7.7) H 12/21/23 21:45 Lymph # (Auto) 0.9 10^3/uL (0.8-4.8) 12/21/23 21:45 [place] # (Auto) 1.2 10^3/uL (0.2-0.9) H 12/21/23 21:45 Eos # (Auto) 0.2 10^3/uL (0.0-0.8) 12/21/23 21:45 Baso # (Auto) 0.0 10^3/uL (0.0-0.1) 12/21/23 21:45 Nucleated RBC % (auto) 0 % 12/21/23 21:45 Nucleated RBCs # 0.0 /100WBC 12/21/23 21:45 PT 13.50 SECONDS (12.1-14.9) 12/21/23 21:45 INR 1.00 (0.8-1.2) 12/21/23 21:45 Sodium 140 mmol/L (136-145) 12/21/23 21:45 Potassium 4.5 mmol/L (3.5-5.1) 12/21/23 21:45 Chloride 100 mmol/L (98-107) 12/21/23 21:45 Carbon Dioxide 30 mmol/L (22-29) H 12/21/23 21:45 Anion Gap 14.5 (5-19) 12/21/23 21:45 BUN 17 mg/dL (8-23) 12/21/23 21:45 Creatinine 1.1 mg/dL (0.7-1.2) 12/21/23 21:45 GFR Calculation Not Reportable 12/21/23 21:45 Glucose 149 mg/dL (65-115) H 12/21/23 21:45 Calculated Osmolality 294 mOsm/kg (285-295) 12/21/23 21:45 Calcium 9.3 mg/dL (8.5-10.5) 12/21/23 21:45 Total Bilirubin 0.9 mg/dL (0.15-1.2) 12/21/23 21:45 AST 33 U/L (0-40) 12/21/23 21:45 ALT 37 U/L (0-41) 12/21/23 21:45 Alkaline Phosphatase 74 U/L (40-130) 12/21/23 21:45 Troponin T Baseline 35 ng/L (0-15) H 12/21/23 21:45 Troponin T 120 Minute 32.65 ng/L (0-15) H 12/21/23 23:23 Delta Troponin T -2.35 ABS# (0-10) L 12/21/23 23:23 NT-Pro-B Natriuret Pep 284 pg/mL (0-450) 12/21/23 21:45 Total Protein 6.0 g/dL (6.6-8.7) L 12/21/23 21:45 Albumin 4.2 g/dL (3.5-5.2) 12/21/23 21:45 Globulin 1.8 g/dL (1.3-4.6) 12/21/23 21:45 All radiology interpretation(s) finalized by discharge Discharge Plan Discharge Patient Disposition: Home Clinical Impression: Chest pain Qualifiers: Chest pain type: other chest pain Qualified Code(s): R07.89 - Other chest pain Condition: Stable Prescriptions: No Action PreserVision AREDS-2 [id number] pl-dnud-sd-mg capsule 1 tab PO BID Rx Instructions: administer with meals budesonide-formoterol [Symbicort] 160-4.5 mcg/actuation HFA aerosol inhaler 2 puff inhalation BID Qty: 10.2 3RF meloxicam 15 mg tablet 15 mg PO QAM PRN (Reason: pain) 90 Days Qty: 90 2RF prednisone 20 mg tablet 40 mg PO daily Qty: 10 0RF cholecalciferol (vitamin D3) 125 mcg (5,000 unit) capsule 125 mcg PO QAM montelukast [Singulair] 10 mg tablet 10 mg PO DAILY Qty: 90 3RF fluticasone propion-salmeterol [Advair Diskus] 500-50 mcg/dose blister with device 1 inh inhalation BID PRN (Reason: Shortness Of Breath Or Wheezing) atorvastatin 10 mg tablet 10 mg PO BEDTIME Qty: 90 0RF aspirin [Adult Aspirin Regimen] 81 mg tablet,delayed release (DR/EC) 81 mg PO BEDTIME Fish Oil 120-180 mg Capsule 1 cap PO DAILY Vitamin D3 125 mcg (5,000 unit) Tablet 125 mcg PO DAILY uzneamlm-gos-xymgz-vit K-lycop 400-20-300 mcg Tablet 1 tab PO DAILY potassium chloride 10 mEq capsule, extended release 10 meq PO QAM furosemide 20 mg tablet 20 mg PO QAM metoprolol tartrate 25 mg Tablet 25 mg PO BID@0900,2100 30 Days Qty: 60 0RF Discharge Orders: Discharge ED (Routine); Ordered 12/22/23 Ordered By: Kervin Torres Referrals: Leidy Gallardo MD [Primary Care Provider] - 4-7 days Patient Instructions: Chest Pain (ED), Opioid Safety, Pain Management Activity Restrictions/Additional Instructions: Your pacemaker was interrogated, and found to be functioning appropriately. No cause of your chest discomfort or shortness of breath was identified. Follow-up with your doctor next week. Return for worsening symptoms or any new concerns. Coding Level of Care Code ED Title Examiner for Callie Meyers
[2023-12-22] VITALS: PULSE 81; RESP 21; O2SAT 93
[2023-12-22 00:15] VITALS: PULSE 84; RESP 19; O2SAT 93
[2023-12-22 00:30] VITALS: PULSE 85; RESP 23; O2SAT 93
[2023-12-22 00:45] VITALS: PULSE 82; RESP 26; O2SAT 94
[2023-12-22 01:00] VITALS: BP 135/73
== END 2023-12-22 01:09 | disposition home or self-care (01) ==
PROVIDERS: Internal Medicine; Emergency Provider Emergency Medicine; PCP Family Medicine
DX: R07.89 Other chest pain (principal); Z79.82 Long term (current) use of aspirin; Z87.891 Personal history of nicotine dependence; I25.10 Atherosclerotic heart disease of native coronary artery without angina pectoris; I10 Essential (primary) hypertension; H35.30 Unspecified macular degeneration; E78.5 Hyperlipidemia, unspecified; Z95.0 Presence of cardiac pacemaker
CPT/HCPCS: 36415; 71045; 80053; 83880; 84484; 85025; 85610; 93005; 99285

== ENCOUNTER → 2024-01-14 13:14 | Outpatient (BNVA) | payer MEDICARE, OTHER, SELFPAY | PROVIDERS: PCP Family Medicine; Visit Provider Internal Medicine Pulmonary Disease | DX: J43.1 Panlobular emphysema (principal); J45.30 Mild persistent asthma, uncomplicated; G47.34 Idiopathic sleep related nonobstructive alveolar hypoventilation; Z87.891 Personal history of nicotine dependence | CPT/HCPCS: 99214 ==

== ENCOUNTER → 2024-03-25 16:59 | Outpatient (BNVA) | payer MEDICARE, OTHER, SELFPAY | PROVIDERS: PCP Family Medicine; Visit Provider Nurse Practitioner Family | DX: Z95.0 Presence of cardiac pacemaker (principal) | CPT/HCPCS: 93005 ==

== ENCOUNTER → 2024-04-06 11:02 | Outpatient (BNVA) | payer MEDICARE, OTHER, SELFPAY | PROVIDERS: PCP Family Medicine; Visit Provider Internal Medicine | DX: I11.0 Hypertensive heart disease with heart failure (principal); I50.42 Chronic combined systolic (congestive) and diastolic (congestive) heart failure; E66.01 Morbid (severe) obesity due to excess calories; Z68.39 Body mass index [BMI] 39.0-39.9, adult; J43.1 Panlobular emphysema; Z95.0 Presence of cardiac pacemaker; Z87.891 Personal history of nicotine dependence | CPT/HCPCS: 99214 ==

== ENCOUNTER → 2024-04-29 14:41 | Outpatient (BNVA) | payer MEDICARE, OTHER, SELFPAY | PROVIDERS: PCP Family Medicine; Visit Provider Internal Medicine Critical Care Medicine | DX: J96.11 Chronic respiratory failure with hypoxia (principal); Z99.81 Dependence on supplemental oxygen; J45.20 Mild intermittent asthma, uncomplicated; I50.33 Acute on chronic diastolic (congestive) heart failure; Z91.148 Patient's other noncompliance with medication regimen for other reason; E66.01 Morbid (severe) obesity due to excess calories; R53.81 Other malaise; Z68.39 Body mass index [BMI] 39.0-39.9, adult; Z71.89 Other specified counseling; Z71.82 Exercise counseling | CPT/HCPCS: 99214 ==

== ENCOUNTER → 2024-05-13 09:21 | Outpatient (BNVA) | payer MEDICARE, OTHER, SELFPAY | PROVIDERS: PCP Family Medicine; Visit Provider Nurse Practitioner Family | DX: I25.10 Atherosclerotic heart disease of native coronary artery without angina pectoris (principal); Z95.0 Presence of cardiac pacemaker; I10 Essential (primary) hypertension; Z87.891 Personal history of nicotine dependence | CPT/HCPCS: 99214 ==

== ENCOUNTER → 2024-05-28 10:21 | Outpatient (BNVA) | payer MEDICARE, OTHER, SELFPAY | PROVIDERS: PCP Family Medicine; Visit Provider Family Medicine | DX: I10 Essential (primary) hypertension (principal); E11.9 Type 2 diabetes mellitus without complications; I50.42 Chronic combined systolic (congestive) and diastolic (congestive) heart failure; R73.03 Prediabetes | CPT/HCPCS: 80048; 83036 ==

== ENCOUNTER → 2024-12-02 11:33 | Outpatient (BNVA) | payer MEDICARE, OTHER, SELFPAY | PROVIDERS: PCP Family Medicine; Visit Provider Family Medicine | DX: J44.9 Chronic obstructive pulmonary disease, unspecified (principal); I10 Essential (primary) hypertension; I50.42 Chronic combined systolic (congestive) and diastolic (congestive) heart failure; I25.10 Atherosclerotic heart disease of native coronary artery without angina pectoris; J43.1 Panlobular emphysema; R73.03 Prediabetes | CPT/HCPCS: 80053; 80061; 83036; 85025 ==

== ENCOUNTER → 2025-01-05 12:22 | Outpatient (BNVA) | payer MEDICARE, OTHER, SELFPAY | PROVIDERS: PCP Family Medicine; Visit Provider Internal Medicine | DX: I11.0 Hypertensive heart disease with heart failure (principal); I50.42 Chronic combined systolic (congestive) and diastolic (congestive) heart failure; J43.1 Panlobular emphysema; E66.01 Morbid (severe) obesity due to excess calories; Z68.41 Body mass index [BMI] 40.0-44.9, adult; Z95.0 Presence of cardiac pacemaker; Z87.891 Personal history of nicotine dependence; Z79.82 Long term (current) use of aspirin | CPT/HCPCS: 99214 ==

== ENCOUNTER 2025-02-11 07:00 | Outpatient (CLI) | payer MEDICARE, OTHER, SELFPAY ==
--- NOTE | 2025-02-11 07:45 | USCV_ITS ---
Fercho Flynn Age: 84 Gender: M : 1940 Exam Date: 02/11/2025 07:41 Ordering Phys: Michael Ng M.D ([email or web address]) Technologist: Exam Location: [facility] Indication: cp sob BP: 140 / 75 HR: 66 Rhythm: Sinus Technical Quality: Adequate MEASUREMENTS (Male / Female) Normal Values 2D ECHO LV Diastolic Diameter PLAX 4.8 cm 4.2 - 5.9 / 3.9 - 5.3 cm IVS Diastolic Thickness 1.7 cm 0.6 - 1.0 / 0.6 - 0.9 cm IVS Systolic Thickness 1.6 cm LVPW Diastolic Thickness 1.8 cm 0.6 - 1.0 / 0.6 - 0.9 cm LVPW Systolic Thickness 1.8 cm LVOT Diameter 2.0 cm LV Ejection Fraction 2D Teich 62.8 % LV Ejection Fraction MOD 4C 48.3 % LV Ejection Fraction MOD 2C 57.7 % LV Ejection Fraction 2C AL 57.2 % LA Diameter 4.7 cm RA Systolic Volume 4C AL 62.2 ml RA Systolic Volume 4C MOD 59.8 ml Aorta at Sinotubular Diameter 3.5 cm M-MODE LA Ao Ratio MM 1.4 AV Cusp Separation MM 2.9 cm DOPPLER AV Peak Velocity 202.0 cm/s LVOT Peak Velocity 90.0 cm/s AV Area Cont Eq vti 1.7 cm squared AV Area Cont Eq pk 1.4 cm squared MV Peak Velocity 109.0 cm/s MV Area PHT 2.7 cm squared Mitral E to A Ratio 0.7 TV Peak Velocity 209.0 cm/s TR Peak Velocity 285.0 cm/s TR Peak Gradient 32.5 mmHg TV Peak E Velocity 53.0 cm/s PV Peak Velocity 107.0 cm/s FINDINGS Left Ventricle Left ventricular is normal in size. LV systolic function is mildly reduced with EF of 45-50%. Mild global hypokinesis. Grade 1 diastolic dysfunction. Right Ventricle Normal in size and function. Pacemaker lead is seen. Right Atrium Normal in size. Pacemaker lead is seen. Left Atrium Dilated Mitral Valve Grossly normal. Mild mitral regurgitation. Aortic Valve Aortic valve is thickened. No significant stenosis or regurgitation. Tricuspid Valve Mild tricuspid regurgitation. Pulmonary artery systolic pressure is normal. Pulmonic Valve Not well visualized Pericardium Normal Aorta Normal in size IVC Not visualized CONCLUSIONS LV systolic function is mildly reduced with EF of 45-50%. Grade 1 diastolic dysfunction. Left atrial dilation. Mild mitral regurgitation Mild tricuspid regurgitation Compared to prior echocardiogram from 2023, LV systolic function has decreased and is mildly reduced now. Michael Ng MD (Electronically Signed) Final Date: 28 February 2025 16:06 S
== END 2025-02-11 07:01 | disposition home or self-care (01) ==
PROVIDERS: PCP Family Medicine; Visit Provider Internal Medicine
DX: R07.9 Chest pain, unspecified (principal); R06.02 Shortness of breath; R93.1 Abnormal findings on diagnostic imaging of heart and coronary circulation; Z96.89 Presence of other specified functional implants; I34.0 Nonrheumatic mitral (valve) insufficiency; I35.8 Other nonrheumatic aortic valve disorders; I07.1 Rheumatic tricuspid insufficiency
CPT/HCPCS: 93306

== ENCOUNTER 2025-03-10 08:23 | Outpatient (CLI) | payer MEDICARE, OTHER, SELFPAY ==
--- NOTE | 2025-03-10 | ECG_ITS ---
[facility]: [facility]10 Pat Name: Fercho Flynn Department: Room: Gender: Male Color Expert: : 1940 Requested By: Michael Ng Order Number: [id number] Dhruv MD: Michael Ng M.D. Interpretive Statements LEXISCAN SESTAMIBI STRESS TEST Procedure: At the baseline, the blood pressure was 142/78 mmHg with a heart rate of 77 bpm. The electrocardiogram showed normal sinus rhythm, left bundle branch block The Lexiscan was infused over a period of 20 seconds. A total of 0.4 mg of Lexiscan was infused. The stress phase was continued for a total of 5 minutes. Heart rate was at the end of stress phase was 84 bpm and a blood pressure of 131/78 mmHg. The EKG at the peak infusion revealed normal sinus rhythm with no significant ST-T wave changes. Sestamibi was injected 20 seconds after the Lexiscan infusion. Blood pressure at the end of recovery phase was 132/75 mmHg with a heart rate of 84 bpm. Conclusion: 1. Normal EKG response to Lexiscan infusion 2. No Lexiscan induced chest pain or cardiac arrhythmia. 3. Normal blood pressure and heart rate response. 4. Sestamibi/sestamibi perfusion scan pending; see separate report. Electronically Signed On 03-27-2025 13:35:22 CDT by Michael Ng M.D. [id number] [id number]
[2025-03-10 09:01] VITALS: BMI 41.5
--- NOTE | 2025-03-10 09:02 | NMCV_ITS ---
NM sukhdev perf SPECT r/s* [id number] Fercho Flynn Age: 84 Gender: M : 1940 Exam Date: 03/10/2025 09:48 Ordering Phys: Michael Ng M.D ([email or web address]) Technologist: ABRAHAM Rao Exam Location: [facility] Indications: cp STRESS TEST Please see separate stress test report in [facility] for full findings IMAGE PROTOCOL Rest/Stress 1 Lexiscan Day Radiopharmaceutical Dose (mCi) Administration Site Administered by Rest: Tc-99m 10.6 IV ABRAHAM Rao Sestamibi Stress:Tc-99m 33 IV ABRAHAM Rao Sestamibi Rest: 10-Mar-2025 60 Discovery 630 Stress: 10-Mar-2025 30 Discovery 630 0.4mg Lexiscan. Images obtained in supine and prone position. SPECT RESULTS Technical Quality: Good Raw Data Analysis: Normal Image Corrections: No attenuation or motion correction applied Summed Stress Score: 6 Summed Rest Score: 4 Summed Difference Score: 2 PERFUSION FINDINGS Medium to large sized area of partially reversible perfusion defect seen in the inferior and inferolateral nicholas. 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 FUNCTIONAL RESULTS (calculated via Gated SPECT) Stress Image LV EF (%): 48 Stress EDV (mL):180 TID: 1.07 Stress ESV (mL):94 FUNCTIONAL FINDINGS: LV systolic function is mildly reduced IMPRESSIONS 1. Abnormal myocardial perfusion imaging with medium to large sized area of prior infarct with medium sized area of donya-infarct ischemia seen in RCA and left circumflex artery territories. 2. LV systolic function is mildly reduced with EF of 48% Michael Ng MD (Electronically Signed) Final Date: 13 March 2025 12:15 S
[2025-03-10] MEDS: regadenoson 0.4 Mg/5 ml Syringe IVP (10:23)
[2025-03-10 10:36] VITALS: BP 132/75; PULSE 83
== END 2025-03-10 08:24 | disposition home or self-care (01) ==
PROVIDERS: PCP Family Medicine; Visit Provider Internal Medicine
DX: R07.9 Chest pain, unspecified (principal); R93.1 Abnormal findings on diagnostic imaging of heart and coronary circulation
CPT/HCPCS: 36415; 78452; 93017; 96374; A9500; J2785

== ENCOUNTER → 2025-03-24 13:02 | Outpatient (BNVA) | payer MEDICARE, OTHER, SELFPAY | PROVIDERS: PCP Family Medicine; Referring Provider Internal Medicine; Visit Provider Internal Medicine | DX: I10 Essential (primary) hypertension (principal); R06.02 Shortness of breath; R58 Hemorrhage, not elsewhere classified | CPT/HCPCS: 80048; 85025; 85610 ==

== ENCOUNTER 2025-03-29 08:40 | Outpatient (CLI) | payer MEDICARE, OTHER, SELFPAY ==
[2025-03-29] VITALS (18 sets, daily range): BP systolic 102–156; BP diastolic 64–77; PULSE 67–80; RESP 16–25; TEMP 37.3; O2SAT 94–97; BMI 41.3
--- NOTE | 2025-03-29 09:00 | XACV_ITS ---
Ht: 178 cm Wt: 131 kg BSA: 2.60 m2 Gender: Male : 1940 Any Known Allergies: No known allergies Exam Priority: Routine Procedure(s): Procedure Description: Diagnostic procedure Procedure Description: Left Heart Catheterization Procedure Description: Left ventriculography Procedure Description: Coronary Angiography Diagnostic Cath Status: Elective Diagnostic Findings * INDICATION: LV dysfunction/ Dyspnea on exertion/ abnormal stress test. * No significant disease noted in the Left Main, Left Anterior Descending, Right, or Circumflex coronary arteries. * Coronary angiography shows right dominance. Conclusions 1. No significant disease noted in the Left Main, Left Anterior Descending, Right, or Circumflex coronary arteries. 2. Mild left ventricular systolic dysfunction. Ejection fraction of 45%. Recommendations * Aggressive medical therapy and risk factor modification. * Outpatient cardiology follow up in 2 weeks. Interventional RX Recommendation: medical therapy and/or counseling Diagnostic RX Recommendation: medical therapy and/or counseling Anticoagulation: Heparin Ventriculography Ejection Fraction: 45.0 % Pressures Phase:Rest AO : / ( 0 ) @ 11:36:00 AM 131 / 69 ( 91 ) @ 11:48:00 AM 127 / 67 ( 89 ) @ 11:49:00 AM 129 / 67 ( 90 ) @ 11:49:00 AM LV : 130 / -4 / 12 @ 11:47:00 AM 127 / -7 / 11 @ 11:48:00 AM 130 / -8 / 10 @ 11:48:00 AM 133 / 72 / 72 @ 11:48:00 AM Valves Phase:DefaultPhase AV : 0.0 @ 10:55:39 AM 0.0 @ 10:55:39 AM AV Mean Gradient: 0.0 @ 10:55:39 AM Clinical Evaluation EBL: 5mL-10mL Procedural Details Procedure Consent Obtained. Admit Source: Out Patient. Pre-Procedure Time Out. Identified patient by full name and date of as verbalized by the patient/guarantor. Does the consent match the physician's order: Yes. Accurate & Complete Informed Consent: Yes. Inpatient/Outpatient History & Physical on Chart: Yes. If H&P is completed, is and addenduem needed: No; If yes, is the addendum complete: N/A. Visualize and Verify Site with Patient/Guarantor: N/A. Relevant Radiology Images available: N/A. The risks, benefits, and alternatives of sedation and/or procedure were discussed by physician. The patient agrees to continue. Procedure started. [facility] Clinical Fraility Score: 6: Moderately Frail. Wood Last Maker Indications: LV Dysfunction. Chest Pain Symptom Assessment: Atypical Angina. Cardiovascular Instability: No. Correct patient, site and procedure confirmed by cath team. Current diagnosis: LV Dysfunction; Anbormal Stress Test. PERRLA. Strong, equal hand patient service specialist bilaterally. Lungs clear x 5 lobes. IV Site on Arrival: 20 gauge in the right anticubital. IV Fluids: 0.9% NaCl at KVO. 0 mL infused prior to brush clearing laborer. Pre Procedural Pulses: bilateral brachial was 3+. Pre Procedural Pulses: bilateral posterior tibial was 3+. Pre Procedural Pulses: bilateral dorsalis pedis was 3+. Oxygen started at 3liters/min via nasal canula. right groin was prepped with chloroprep then draped in the usual sterile fashion. right radial was prepped with chloroprep then draped in the usual sterile fashion. Physician notified. Baseline sample Acquired. HR: 69 BPM. Physician arrived. Patient's family unavailable. Physician scrubbed in. Immediate Pre-Procedure Time Out. Correct Patient: Yes; Correct Procedure: Yes; Correct Site: Yes; Correct Patient Position: Yes; Correct Supplies: Yes; Dried Flammable Prep: Yes; Blood Products Available: N/A;. Lidocaine 1% infiltrated to the right radial. Arterial access obtained. A 5 macedonian TIG catheter in over wire. Multiple views taken of left coronary artery. Catheter redirected to the RCA. Multiple views taken of right coronary artery. Catheter removed over the exchange wire. A 5 macedonian Angled Pig catheter in over wire. Catheter removed over the wire. New Angleg pigltail inserted over the wire. EDP Sample taken: LV 130/-5,12; HR: 77 BPM; SpO2: 97%. LV gram performed in [place]ACK[place] @ 10 mL/second for a total of 30 mL. Patient EF: Normal. EDP Sample taken: LV 127/-8,11; HR: 77 BPM; SpO2: 97%. Pullback taken: LV 130/-9,10; AO 131/69(91); Mean: 0mmHg, Peak to Peak: 0mmHg, SEP: 8sec/min; HR: 77 BPM; SpO2: 95%. EDP Sample taken: LV 133/72,72; HR: 75 BPM; SpO2: 95%. Catheter inserted over the exchange wire. Physician review of [facility]. Physician scrubbed out. A TR Band was successful obtaining hemostatsis at the Right Radial artery insertion site. TR band placed. Hemostasis obtained. Post Procedure: Pulses reassessed and unchanged. PERRLA. Strong, equal hand patient service specialist bilaterally. No VTE prophylaxis required. Medication waste: Lidocaine- 18 ml Nitro- 49.8 mg Heparin- 1000 units Versed- 1 mg Fentanyl- 50 mcg. Total IV fluids: 45 mL. Fluoro: 3:05. Contrast type used: Omnipaque 300 mg/mL, 150 mL bottle. [id number]. Post-op diagnosis: Non Obstuctive CAD. Complications: None. Estimated blood loss: 5mL-10mL. Responsiveness - Normal response to verbal stimuli; alert and oriented, PERRLA. Airway - Unaffected, no intervention required; spontaneous ventilation. Circulation: W/N/L, pulses unchanged. Nausea/Vomiting: No. Procedure completed. Patient transferred by bed to CPRU. Vital chart was stopped. Access Site Site: Right Radial artery Sheath Size: 6 Fr Hemostasis Method: TR Band Hemostasis Success: Successful Procedure Medications Start: 10:30 AM Stop: 10:30 AM Medication: Fentanyl Amount: 50 mcg Route: I.V. Start: 10:32 AM Stop: 10:32 AM Medication: Versed Amount: 1 mg Route: I.V. Start: 10:37 AM Stop: 10:37 AM Medication: Nitrogylcerin Amount: 200 mcg Route: I.A. Start: 10:39 AM Stop: 10:39 AM Medication: Heparin Amount: 5000 units Route: I.V. I, the attending physician, have reviewed and verified all procedure medications. Yes, all medications given per verbal order History/Risk Factors Hypertension: Yes Dyslipidemia: Yes Peripheral Arterial Disease (PAD): No Myocardial Infarction (W[place]): No Obesity: Yes Renal Disease: No Tobacco Use: Former Prior Interventions PCI: No CABG: No Valve Surgery: No Report Signatures Finalized by Michael Ng MD on 03/29/2025 11:07 AM
--- NOTE | 2025-03-29 10:24 | W.PM.OPSFHP ---
Same Day Surgery H&P Indication for Procedure/HPI DATE OF PROCEDURE: March 29, 2025 CHIEF COMPLAINT/INDICATIONFOR SURGICAL PROCEDURE: LV dysfunction/ Dyspnea on exertion/ abnormal stress test PREOP DIAGNOSIS: LV dysfunction/ Dyspnea on exertion/ abnormal stress test PLANNED PROCEDURE: Operation Date: 03/29/25 10:00 Proposed Procedures p Cardiac Catheterization - [facility] W/Coronaries(Left) - Michael Ng M.D Possible percutaneous coronary intervention 84-year-old man with past medical history of possible emphysema, has pacemaker in place with no prior CAD history who has been having worsening shortness of breath. Echo showed EF was 45-50%. Stress test is abnormal. Plan for coronary angiogram with possible PCI Medications/Allergies* Home Medications ?Medication ?Instructions ?Recorded ?Confirmed ?Type vit C 250 mg-vit E 90 mg-zinc 40 1 tab PO BID 02/19/20 03/29/25 History mg-copper 1 ai-dmvauj-tjxgul capsule (PreserVision AREDS-2) aspirin 81 mg tablet,delayed 81 mg PO BEDTIME 04/05/21 03/29/25 History release (Adult Aspirin Regimen) cholecalciferol (vitamin D3) 125 125 mcg PO DAILY 11/27/23 03/29/25 History mcg (5,000 unit) tablet (Vitamin D3) docosahexaenoic acid (dha)-epa 120 1 cap PO DAILY 11/27/23 03/29/25 History mg-180 mg capsule (Fish Oil) bdjaatpo-bofseoob-uussw acid 400 1 tab PO DAILY 11/27/23 03/29/25 History mcg-vit K 20 mcg-lycop 300 mcg tablet albuterol sulfate 90 mcg/actuation 2 inh inhalation QID PRN shortness 05/28/24 03/29/25 History aerosol inhaler of breath or wheezing ipratropium 0.5 mg-albuterol 3 mg 3 ml inhalation TID PRN Shortness 01/05/25 03/29/25 History (2.5 mg base)/3 mL nebulization Of Breath Or Wheezing soln Allergies/Adverse Reactions Allergy/AdvReac Type Severity Reaction Status Date / Time No Known Allergies Allergy Verified 02/02/25 07:09 Current Medications: Generic Name Dose Route Start Last Admin Trade Name Freq PRN Reason Stop Dose Admin Sodium Chloride 1,000 mls @ 50 mls/hr 03/29/25 09:00 03/29/25 09:21 Sodium Chloride 0.9% IV 03/30/25 04:59 Not Given .Q20H ONE Pertinent History/Comorbid Conditions* Medical History (Updated 02/02/25 @ 11:30 by Leidy Gallardo MD) Second degree AV block, Mobitz type II COVID Arthritis of left shoulder region Abnormal nuclear stress test CAD (coronary artery disease) Gastritis and duodenitis History of tobacco use Hypokalemia Anxiety HTN (hypertension) Histoplasmosis Macular degeneration Hyperlipidemia Left renal stone Urinary frequency Abnormal PSA Hydronephrosis, left Surgical History (Updated 12/02/23 @ 00:01 by LYNN Kang) History of esophagogastroduodenoscopy (EGD) 2020 Hx of umbilical hernia repair Hx of inguinal hernia repair Hx of right knee surgery Patella injury Hx of cataract removal with insertion of prosthetic lens Family History (Updated 02/19/20 @ 14:04 by VINCE Cabrera) Father, in his 80's Mother, at age 78 CAD (coronary artery disease) Father Lung disease Mother Social History Smoking and tobacco/nicotine status: former use of tobacco/nicotine Quit status (tobacco/nicotine): has quit using Year quit tobacco: 1990 Former quit date comment: Hx of 1.5 PPD x 40 Years Alcohol intake: former Year of sobriety/quit date alcohol: 1960 Substance/Drug Use: never Adopted: No Caregiver/support person: No Lives independently: Yes Household members: none Marital status: / Current occupational status: retired and disabled 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 Pets and animals: Yes Pets & animals: cat(s) Do you think of yourself as: Straight/Heterosexual Current gender identity: Male Pertinent Exam Findings alert, oriented x 3 and regular rate & rhythm Diminished air entry bilaterally Conscious Sedation Assessment PATIENT ASSESSED PRIOR TO SEDATION, WITH NO CHANGE NOTED: Yes AIRWAY EVAL/ANESTHESIA PLAN: normal airway, ASA III, Local Anesthesia, Risks, benefits & alternatives of sedation and/or procedure discussed and Patient agrees to continue as planned ADDITIONAL INFORMATION: Moderate sedation Recommendations Risks and benefits of procedure reviewed and Patient/family agree to proceed Surgery/Procedure today (Left heart cath with possible percutaneous coronary intervention) Coding Level of Care Code Acute Code for g Fwd
== END 2025-03-29 14:03 | disposition home or self-care (01) ==
PROVIDERS: PCP Family Medicine; Visit Provider Internal Medicine
DX: R94.39 Abnormal result of other cardiovascular function study (principal); R06.09 Other forms of dyspnea; I25.10 Atherosclerotic heart disease of native coronary artery without angina pectoris; I51.81 Takotsubo syndrome; I10 Essential (primary) hypertension; E78.5 Hyperlipidemia, unspecified; E66.9 Obesity, unspecified; Z68.41 Body mass index [BMI] 40.0-44.9, adult; Z87.891 Personal history of nicotine dependence; Z79.82 Long term (current) use of aspirin; Z95.0 Presence of cardiac pacemaker
CPT/HCPCS: 93458; 99152; 99153; C1769; C1887; C1894; J1644; J2250; J3010; J3490; J7030; J9999; Q0163; Q9967

== ENCOUNTER 2025-04-08 16:10 | Outpatient (CLI) | payer MEDICARE, OTHER, SELFPAY ==
--- NOTE | 2025-04-08 16:30 | USCV_ITS ---
Fercho Flynn Age: 84 Gender: M : 1940 Exam Date: 04/08/2025 16:24 Ordering Phys: Nenita Masters IRONING PLEATER IRONING PLEATER Technologist: TONY [place] [facility] [place]: LLE Pain HISTORY: Lower extremity swelling. PROCEDURES: Venous duplex imaging was performed in only the left lower extremity. The following venous structures were evaluated: common femoral vein, profunda vein, proximal portion of the greater saphenous vein, superficial femoral vein, and the popliteal vein. In addition, the posterior tibial and peroneal trunk were evaluated. Serial compression, augmentation maneuvers, and spectral Doppler flow evaluation were performed. FINDINGS: No evidence of DVT seen in any vessel visualized at this time. CONCLUSIONS No evidence of left lower extremity DVT. Sal Cuellar MD (Electronically Signed) Final Date: 08 April 2025 17:00 S
== END 2025-04-08 16:11 | disposition home or self-care (01) ==
LOC: RAD 16:15
PROVIDERS: PCP Family Medicine; Visit Provider Nurse Practitioner
DX: M79.605 Pain in left leg (principal)
CPT/HCPCS: 93971

== ENCOUNTER → 2025-04-12 14:13 | Outpatient (BNVA) | payer MEDICARE, OTHER, SELFPAY | PROVIDERS: PCP Family Medicine; Visit Provider Nurse Practitioner Family | DX: I11.0 Hypertensive heart disease with heart failure (principal); I50.42 Chronic combined systolic (congestive) and diastolic (congestive) heart failure; J43.1 Panlobular emphysema; E66.01 Morbid (severe) obesity due to excess calories; Z68.41 Body mass index [BMI] 40.0-44.9, adult; Z79.82 Long term (current) use of aspirin; Z95.0 Presence of cardiac pacemaker; Z87.891 Personal history of nicotine dependence; I10 Essential (primary) hypertension | CPT/HCPCS: 99204; 99214 ==

== ENCOUNTER 2025-04-21 15:59 | Outpatient (CLI) | payer MEDICARE, OTHER, SELFPAY ==
--- NOTE | 2025-04-21 16:07 | CTR_ITS ---
PROCEDURE INFORMATION: Exam: CT Chest Without Contrast; Diagnostic Exam date and time: 04/21/2025 4:20 PM Age: 84 years old Clinical indication: Prior surgery; Surgery date: 6+ months; Surgery type: Pacemaker, right shoulder; Asthma, copd, HX of bradycardia and heart attack. Fatigue and shortness of breath TECHNIQUE: Imaging protocol: Diagnostic computed tomography of the chest without contrast. Total images: 435 Radiation optimization: All CT scans at this facility use at least one of these dose optimization techniques: automated exposure control; mA and/or kV adjustment per patient size (includes targeted exams where dose is matched to clinical indication); or iterative reconstruction. COMPARISON: CT chest wo con [id number] 02/10/2021 7:50 AM RADIATION DOSE METRICS: Total DLP (mGy-cm): FINDINGS: Tubes, catheters and devices: Visualized pacemaker leads are noted and appear appropriately positioned. Lungs: Benign granulomatous disease of the lung is noted. Trace bibasilar atelectasis or scar. Pleural spaces: Unremarkable. No pneumothorax. No pleural effusion. Heart: Unremarkable. No cardiomegaly. No pericardial effusion. Coronary arteries: Mild coronary arterial calcification, indicating the presence of coronary artery disease. Lymph nodes: Calcified mediastinal and hilar nodes noted. Vasculature: Unremarkable. No aortic aneurysm. Liver: Liver contour changes raise suspicion for chronic advanced liver disease (cirrhosis). Adrenal glands: 2 cm benign right adrenal adenoma, no further followup necessary. 3 cm benign left adrenal adenoma, no further followup necessary. Bones/joints: Right shoulder arthroplasty. Old right rib fractures are evident. Soft tissues: Unremarkable. Other findings: Scanogram image mislabeled. Moderate atherosclerotic disease burden is evident. CT/CT chest wo con [id number] IMPRESSION: 1. Liver contour changes raise suspicion for chronic advanced liver disease (cirrhosis). Recommend correlation with risk factors and liver function tests. 2. Benign granulomatous disease of the lung is noted. 3. Trace bibasilar atelectasis or scar. 4. Mild coronary arterial calcification, indicating the presence of coronary artery disease. If the patient has associated symptoms recommend management as per chest pain guidelines. If the patient is asymptomatic consider reviewing modifiable cardiovascular risk factors and managing as per guidelines for primary prevention. COMMENTS: Consistent with the [employer]'s Incidental Findings Committee white paper (J Am Sabina Radiol 2017): For any incidental adrenal lesion greater than or equal to 1 cm but less than or equal to 4 cm classified in this report as benign, likely benign, or containing fat (including classification as an adenoma or myelolipoma), no follow-up imaging is recommended per consensus recommendations based on imaging criteria. Further lab evaluation could be pursued if warranted based on clinical findings.
--- NOTE | 2025-04-21 16:07 | CT_ITS ---
WS: [id number] CT CHEST ANGIOGRAPHY WITH REFORMATS HISTORY: Rule out PE TECHNIQUE: Contiguous axial images are obtained through the chest during arterial injection of intravenous contrast. Images are reconstructed to evaluate the pulmonary arteries. MIP imaging also reviewed. All CT scans at [facility] use at least one of these dose optimization techniques: automated exposure control; mA and/or kV adjustment per patient size (includes targeted exams where dose is matched to clinical indication); or iterative reconstruction. CONTRAST: Omnipaque 350; 100 mL IV. DLP: 477.91 mGy.cm COMPARISON: 02/10/2021 Adequate opacification of the central pulmonary arteries. Decreased opacification at the level of the segmental branches. No central pulmonary embolism. Normal sized pulmonary artery. No RIGHT heart strain. Mild atherosclerosis aorta. No aneurysm. Mild LEFT heart enlargement. No pericardial or pleural effusions. Numerous calcified granulomata. No pneumonia. No lobar collapse. No significant atelectasis. No adenopathy. Cirrhotic liver. Nodules within each adrenal gland. LEFT adrenal gland contains multiple nodules with the largest measuring 17 mm. These nodules were present on the prior exam from 2020 but not as well visualized due to motion. Moderate degenerative disc disease in thoracic spine. No destructive bone process. CT/CT angio chest PE protcl [id number] IMPRESSION: 1. No central pulmonary embolism. Decreased opacification of the pulmonary art eries beginning at the segmental branches. 2. No RIGHT heart strain. 3. Mild atherosclerosis aorta. 4. Mild LEFT heart enlargement. 5. Prior granulomatous disease. 6. Cirrhotic liver.
[2025-04-21] MEDS: iohexol 350 mg/mL 500 mL Btl (per mL) IV (16:58)
== END 2025-04-21 16:00 | disposition home or self-care (01) ==
LOC: RAD 16:00
PROVIDERS: Family Provider Family Medicine; PCP Family Medicine; Visit Provider Internal Medicine
DX: J96.11 Chronic respiratory failure with hypoxia (principal); J84.10 Pulmonary fibrosis, unspecified; I25.10 Atherosclerotic heart disease of native coronary artery without angina pectoris; K74.60 Unspecified cirrhosis of liver; I51.7 Cardiomegaly; I70.0 Atherosclerosis of aorta; Z99.81 Dependence on supplemental oxygen
CPT/HCPCS: 71250; 71275

== ENCOUNTER 2025-04-27 07:46 | Outpatient (CLI) | payer MEDICARE, OTHER, SELFPAY ==
--- NOTE | 2025-04-27 08:00 | NM_ITS ---
WS: [id number] NUCLEAR MEDICINE LUNG VENTILATION AND PERFUSION CLINICAL INFORMATION: Rule out chronic thromboemboli TECHNIQUE: Ventilation/perfusion lung scan with 32.7 mCi technetium 99m DTPA. 5.1 mCi technetium 99 MAA COMPARISON: Radiograph 04/27/2025 FINDINGS: Chronic granulomatous disease. Mild cardiomegaly. Cardiac pacer. Deposition of radiotracer along the central bronchi. Patchy matched areas of perfusion and ventilation compatible with chronic emphysematous change. No mismatched or segmental defects to indicate pulmonary embolus. Low probability for pulmonary embolus NM/NM pul vent and perfus* [id number] IMPRESSION: 1. Low probability for pulmonary embolus.
--- NOTE | 2025-04-27 08:22 | XRR_ITS ---
PROCEDURE INFORMATION: Exam: XR Chest Exam date and time: 04/27/2025 8:33 AM Age: 84 years old Clinical indication: Shortness of breath; Prior surgery; Surgery date: 6+ months; Surgery type: Right shoulder, pacer; SOB f/u lung vq TECHNIQUE: Imaging protocol: Radiologic exam of the chest. Views: 2 views. COMPARISON: CT angio chest PE protcl [id number] 04/21/2025 4:33 PM FINDINGS: Tubes, catheters and devices: Cardiac pacemaker, unchanged. Lungs: Stable innumerable tiny bilateral calcified pulmonary nodules consistent with prior granulomatous disease. No focal consolidation. Low lung volumes. Pleural spaces: Unremarkable. No pleural effusion. No pneumothorax. Heart/Mediastinum: Unremarkable. No cardiomegaly. Bones/joints: Status post right reverse total shoulder arthroplasty. No acute or suspicious osseous abnormality. XR/XR chest 2V* [id number] IMPRESSION: No acute cardiopulmonary process.
--- NOTE | 2025-04-27 08:36 | XRR_ITS ---
PROCEDURE INFORMATION: Exam: XR Left Shoulder Exam date and time: 04/27/2025 8:40 AM Age: 84 years old Clinical indication: Pain; Shoulder; Left; Additional info: M19.012 - primary osteoarthritis, left shoulder TECHNIQUE: Imaging protocol: Radiologic exam of the left shoulder. Views: 2 or more views. COMPARISON: CR XR shoulder LT min 2V* [id number] 11/30/2023 6:01 PM FINDINGS: Bones/joints: Normal alignment. No acute fracture. Acromioclavicular and glenohumeral osteoarthritis with little change from prior. Lungs: Multiple calcified granulomas scattered throughout the left lung. Soft tissues: Normal. XR/XR shoulder LT min 2V* [id number] IMPRESSION: Acromioclavicular and glenohumeral osteoarthritis with little change from prior.
[2025-04-27 09:29] VITALS: PULSE 73; RESP 18; O2SAT 91
== END 2025-04-27 07:47 | disposition home or self-care (01) ==
PROVIDERS: PCP Family Medicine; Visit Provider Internal Medicine
DX: J96.11 Chronic respiratory failure with hypoxia (principal); Z99.81 Dependence on supplemental oxygen; M19.012 Primary osteoarthritis, left shoulder; R91.1 Solitary pulmonary nodule; Z96.611 Presence of right artificial shoulder joint; I26.99 Other pulmonary embolism without acute cor pulmonale; R91.8 Other nonspecific abnormal finding of lung field; J43.9 Emphysema, unspecified
CPT/HCPCS: 71046; 73030; 78014; 94060; 94618; 94726; 94729; A9540; A9567; J7613

== ENCOUNTER → 2025-04-28 10:42 | Outpatient (BNVA) | payer MEDICARE, OTHER, SELFPAY | PROVIDERS: Family Provider Family Medicine; PCP Family Medicine; Visit Provider Family Medicine | DX: I10 Essential (primary) hypertension (principal); J96.11 Chronic respiratory failure with hypoxia; Z99.81 Dependence on supplemental oxygen; G47.34 Idiopathic sleep related nonobstructive alveolar hypoventilation; I50.33 Acute on chronic diastolic (congestive) heart failure; R73.03 Prediabetes | CPT/HCPCS: 80048; 82565; 83036; 84520; 85025 ==

== ENCOUNTER → 2025-05-18 13:27 | Outpatient (BNVA) | payer MEDICARE, OTHER, SELFPAY | PROVIDERS: Family Provider Family Medicine; PCP Family Medicine; Visit Provider Internal Medicine | DX: J43.9 Emphysema, unspecified (principal); J45.909 Unspecified asthma, uncomplicated; G47.34 Idiopathic sleep related nonobstructive alveolar hypoventilation; J96.11 Chronic respiratory failure with hypoxia; Z99.81 Dependence on supplemental oxygen; E66.9 Obesity, unspecified; Z68.41 Body mass index [BMI] 40.0-44.9, adult; I11.0 Hypertensive heart disease with heart failure; I50.9 Heart failure, unspecified; Z87.891 Personal history of nicotine dependence | CPT/HCPCS: 99215; Q3014 ==

== ENCOUNTER → 2025-05-19 14:03 | Outpatient (BNVA) | payer MEDICARE, OTHER, SELFPAY | PROVIDERS: Family Provider Family Medicine; PCP Family Medicine; Visit Provider Family Medicine | DX: R73.03 Prediabetes (principal); I10 Essential (primary) hypertension | CPT/HCPCS: 83036 ==

== ENCOUNTER → 2025-06-10 10:24 | Outpatient (BNVA) | payer MEDICARE, OTHER, SELFPAY | PROVIDERS: Family Provider Family Medicine; PCP Family Medicine; Visit Provider Internal Medicine | DX: J44.89 Other specified chronic obstructive pulmonary disease (principal); J96.11 Chronic respiratory failure with hypoxia; Z99.81 Dependence on supplemental oxygen; G47.33 Obstructive sleep apnea (adult) (pediatric); Z99.89 Dependence on other enabling machines and devices; E66.9 Obesity, unspecified; Z87.891 Personal history of nicotine dependence; J44.9 Chronic obstructive pulmonary disease, unspecified | CPT/HCPCS: 36415; 85025; 99214 ==

== ENCOUNTER → 2025-06-28 13:08 | Outpatient (BNVA) | payer MEDICARE, OTHER, SELFPAY | PROVIDERS: Family Provider Family Medicine; PCP Family Medicine; Visit Provider Internal Medicine | DX: J43.9 Emphysema, unspecified (principal); G47.33 Obstructive sleep apnea (adult) (pediatric); J44.89 Other specified chronic obstructive pulmonary disease; E66.9 Obesity, unspecified; Z68.41 Body mass index [BMI] 40.0-44.9, adult; J96.10 Chronic respiratory failure, unspecified whether with hypoxia or hypercapnia; Z99.81 Dependence on supplemental oxygen; Z87.891 Personal history of nicotine dependence | CPT/HCPCS: 99214; Q3014 ==

== ENCOUNTER 2025-07-30 08:47 | Outpatient (CLI) | payer MEDICARE, OTHER, SELFPAY ==
--- NOTE | 2025-07-30 08:53 | US_ITS ---
WS: [id number] RIGHT UPPER QUADRANT ULTRASOUND HISTORY: Cirrhosis COMPARISON: 10/19/2020 Extremely limited evaluation of the RIGHT upper quadrant due to body habitus. Liver: 16.7 cm in length. Liver is very poorly visualized. Liver does appear shrunken. Mass would be difficult to exclude. Portal Vein: Normal hepatopetal flow with monophasic waveform. Gallbladder: Normally distended gallbladder with no stones or wall thickening. CBD: 0.4 cm Pancreas: Completely obscured. Right kidney: 12.4 cm in length. Limited. Normal size with no hydronephrosis. Aorta and IVC: Not visualized. No ascites. US/US abdomen limited [id number] IMPRESSION: 1. Technically very difficult and limited RIGHT upper quadrant ultrasound. 2. Negative gallbladder. 3. Liver is not adequately visualized.
== END 2025-07-30 08:48 | disposition home or self-care (01) ==
LOC: RAD 08:49
PROVIDERS: Family Provider Family Medicine; PCP Family Medicine; Visit Provider Dietitian, Registered
DX: K74.60 Unspecified cirrhosis of liver (principal)
CPT/HCPCS: 76705

== ENCOUNTER → 2025-08-06 11:09 | Outpatient (BNVA) | payer MEDICARE, OTHER, SELFPAY | PROVIDERS: Family Provider Family Medicine; PCP Family Medicine; Visit Provider Internal Medicine | DX: J43.9 Emphysema, unspecified (principal); G47.33 Obstructive sleep apnea (adult) (pediatric); G47.34 Idiopathic sleep related nonobstructive alveolar hypoventilation; J96.11 Chronic respiratory failure with hypoxia; Z99.81 Dependence on supplemental oxygen; Z87.891 Personal history of nicotine dependence | CPT/HCPCS: 99213; Q3014 ==

== ENCOUNTER → 2025-09-01 10:49 | Outpatient (BNVA) | payer MEDICARE, OTHER, SELFPAY | PROVIDERS: Family Provider Family Medicine; PCP Family Medicine; Visit Provider Internal Medicine Cardiovascular Disease | DX: Z45.018 Encounter for adjustment and management of other part of cardiac pacemaker (principal); I11.0 Hypertensive heart disease with heart failure; I50.9 Heart failure, unspecified; E66.01 Morbid (severe) obesity due to excess calories; Z68.41 Body mass index [BMI] 40.0-44.9, adult; J43.9 Emphysema, unspecified; Z87.891 Personal history of nicotine dependence | CPT/HCPCS: 93296; 99213 ==